=== PATIENT | male | born 1950 | race Caucasian/White ===

== ENCOUNTER 2018-04-09 11:38 | Emergency (ER) | payer MEDICARE, OTHER ==
[~2018-04-09] VITALS: Ht 175.3 cm; Wt 75.0 kg
[~2018-04-09 11:38] MED LIST: FLUTICASONE50 MCG; LIPITOR20 MG PO; LISINOPRIL10 MG PO; MELOXICAM7.5 MG PO; METOPROL TAR25 MG PO; PANTOPRAZOLE SO40 MG PO; VENLAFAXINE150 M1 PO
[2018-04-09 11:53] LABS: HEMATOCRIT 37.2 % (39.0-50.0); IMMATURE GRANULOCYTES 0.7 % (0.0-5.0); MEAN CELL VOLUME 101.1 fL CALC (80.0-100.0); MEAN CORPUSCULAR HGB 33.4 pG CALC (26.0-32.0); MEAN CORPUSCULAR HGB CONC 33.1 g/L CALC (32.0-36.0); NEUT# 12.51 thou/uL (1.82-7.42); RED BLOOD COUNT 3.68 mill/uL (4.70-6.10); RED CELL DISTRI WIDTH 15.2 % (11.5-15.5)
[2018-04-09 11:55] LABS: HEMOGLOBIN 12.3 g/dl (14.0-18.0)
[2018-04-09 12:09] LABS: PROTHROMBIN TIME 10.5 SECONDS (9.0-12.5)
[2018-04-09 12:12] LABS: ALKALINE PHOSPHATASE 117 u/l (38-126); BILIRUBIN, TOTAL 0.6 mg/dL (0.0-1.4); BUN 17 mg/dL (8-23); BUN/CREATININE RATIO 18 (12-20 (CALC)); CARBON DIOXIDE 21 mmol/l (22-30); CREATININE 0.9 mg/dL (0.7-1.3); GFR > 60 ML/MIN (>=60 (CALC)); GFR FOR AFR.AMER. > 60 ML/MIN (>=60 (CALC)); SGOT/AST 232 u/l (19-48); SODIUM 141 mmol/l (137-146); TOTAL PROTEIN 7.5 g/dL (6.3-8.2)
[2018-04-09 12:21] LABS: ANION GAP 19 (6-22 (CALC)); CHLORIDE 106 mmol/l (95-108); POTASSIUM 5.4 mmol/l (3.5-5.1)
[2018-04-09 12:40] LABS: MYOGLOBIN 4652 ng/mL (0 - 121)
[2018-04-09 12:58] VITALS: BP 112/84
== END 2018-04-09 12:58 | disposition short-term general hospital (02) ==
LOC: ED 11:38
PROVIDERS: Emergency Medicine
PROC: 0T9B70Z Drainage of Bladder with Drainage Device, Via Natural or Artificial Opening (ICD-10-PCS; principal; 2018-04-09)
DX: I21.09 ST elevation (STEMI) myocardial infarction involving other coronary artery of anterior wall (principal); I10 Essential (primary) hypertension; E78.00 Pure hypercholesterolemia, unspecified; K21.9 Gastro-esophageal reflux disease without esophagitis; R00.0 Tachycardia, unspecified
CPT/HCPCS: J1250

== ENCOUNTER 2018-10-25 14:35 | Emergency (ER) | payer MEDICARE, OTHER ==
[~2018-10-25] VITALS: Ht 175.3 cm; Wt 69.0 kg
[~2018-10-25 14:35] MED LIST changes: +BUMETANIDE2 MG PO; +COQ-10100 M1 PO; +DOCUSATE SOD100 MG PO; +FAMOTIDINE20 M3 PO; +FERRAPLUS 90 PO; +MIDODRINE5 MG PO; +SERTRALINE25 MG; +SPIRONOLACT50 M1 PO; +VITAMIN C500 M6 PO; +VITAMIN DE1000 MCG/M IM; +XARELTO15 MG PO
[2018-10-25 15:14] LABS: HEMATOCRIT 29.3 % (39.0-50.0); HEMOGLOBIN 8.7 g/dl (14.0-18.0); IMMATURE GRANULOCYTES 0.5 % (0.0-5.0); MEAN CELL VOLUME 80.9 fL CALC (80.0-100.0); MEAN CORPUSCULAR HGB CONC 29.7 g/L CALC (32.0-36.0); NEUT# 5.13 thou/uL (1.82-7.42); RED BLOOD COUNT 3.62 mill/uL (4.70-6.10); RED CELL DISTRI WIDTH 20.7 % (11.5-15.5)
[2018-10-25 15:36] LABS: CREATININE 1.5 mg/dL (0.7-1.3); POTASSIUM 3.9 mmol/l (3.5-5.1)
[2018-10-25] MEDS ORDERED: ASPIRIN81 MG PO (15:43)
[2018-10-25 17:55] VITALS: BP 90/62
== END 2018-10-25 17:55 | disposition home or self-care (01) ==
LOC: ED 14:35
PROVIDERS: Family Medicine
DX: T82.7XXA Infection and inflammatory reaction due to other cardiac and vascular devices, implants and grafts, initial encounter (principal); I10 Essential (primary) hypertension; I25.10 Atherosclerotic heart disease of native coronary artery without angina pectoris; Y83.1 Surgical operation with implant of artificial internal device as the cause of abnormal reaction of the patient, or of later complication, without mention of misadventure at the time of the procedure; Z95.0 Presence of cardiac pacemaker

== ENCOUNTER 2019-02-16 15:53 | Inpatient (IN) | payer MEDICARE, OTHER ==
[~2019-02-16] VITALS: Ht 175.3 cm; Wt 70.0 kg
[~2019-02-16 15:53] MED LIST changes: +ASPIRIN81 MG PO; -SERTRALINE25 MG; +SERTRALINE50 MG PO; +SPIRONOLACT25 MG PO; -SPIRONOLACT50 M1 PO
--- NOTE | 2019-02-16 15:55 | NUR ---
TO ROOM 8 VIA EMS FOR BEDSIDE TRIAGE
[2019-02-16 17:23] LABS: BILIRUBIN, TOTAL 0.8 mg/dL (0.0-1.4); TOTAL PROTEIN 8.4 g/dL (6.3-8.2)
[2019-02-16 17:26] LABS: CREATININE 2.8 mg/dL (0.7-1.3)
[2019-02-16 17:28] LABS: HEMATOCRIT 31.6 % (39.0-50.0); HEMOGLOBIN 10.2 g/dl (14.0-18.0); IMMATURE GRANULOCYTES 0.6 % (0.0-5.0); MEAN CELL VOLUME 92.7 fL CALC (80.0-100.0); MEAN CORPUSCULAR HGB 29.9 pG CALC (26.0-32.0); MEAN CORPUSCULAR HGB CONC 32.3 g/L CALC (32.0-36.0); NEUT# 6.82 thou/uL (1.82-7.42); RED BLOOD COUNT 3.41 mill/uL (4.70-6.10); RED CELL DISTRI WIDTH 19.4 % (11.5-15.5)
--- NOTE | 2019-02-16 18:03 | NUR ---
PT REESTING STATES HIS IN DECEMBER OF SUICIDE SO HE HAS BEEN FEELING WEAK/TIRED/DEPRESSED ON AND OFF SINCE THEN STATES HE HAS BEEN FORCING HIMSELF TO EAT AND THAT HE DRINKS 2-3 DRINKS A DAY BUT HAS BEEN CUTTING BACK BECAUSE HIS HEART AND HAVE TOLD HIM HE NEEDS TO STOP. WAS DRIVING TO DAY TO THE [employer] TO GET A DRINK AND "NUDGED THE STOP SIGN" THE OFFICER ASKED HIM TO COME TO THE HOSPITAL AND BE CHECKED OUT. PT HAS O2 AT HOME THAT HE STATES HE WEARS EVERY NIGHT AND DURING THE DAY PRN FOR SOB. STATES HE HAS FELT HE NEED THE O2 DURING THE DAY MORE THIS LAST WEEK.
--- NOTE | 2019-02-16 18:21 | NUR ---
PT OOB TO STAND AT BEDSIDE FOR URINAL USAGE, TOLERATING IVF W/O INCIDENT, DENIES PAIN OR DISCOMFORT EXCEPT SOME PAIN TO PALPATION AT LEFT CHEST WALL PACER INSERTION AREA.
[2019-02-16 18:34] LABS: URINE BILIRUBIN - DIPSTICK NEGATIVE (NEGATIVE); URINE BLOOD DIPSTICK NEGATIVE (NEGATIVE); URINE COLOR YELLOW; URINE GLUCOSE - DIPSTICK NEGATIVE (NEGATIVE); URINE KETONE NEGATIVE (NEGATIVE); URINE LEUK ESTERASE NEGATIVE (NEGATIVE); URINE NITRITE - DIPSTICK NEGATIVE (Negative); URINE PROTEIN - DIPSTICK NEGATIVE (NEG-TRACE); URINE UROBILINOGEN - DIPSTICK 0.2 E.U./dL (0.2)
--- NOTE | 2019-02-16 18:35 | NUR ---
PT USED URINAL SPECIMEN SENT. OFFERS NO OTHER COMPLAINTS, AWARE OF ABG RESULTS. CALL READ WITHIN REACH, AND URINAL AT BEDSIDE
--- NOTE | 2019-02-16 18:54 | NUR ---
SBAR SENT TO MED/SURG
--- NOTE | 2019-02-16 18:56 | NUR ---
IN ROOM INTRODUCED SELF TO PT. IVF RATE DECREASED TO 150 ML/HR PER MD.
--- NOTE | 2019-02-16 19:03 | NUR ---
MD IN ROOM TO DISCUSS CLINICAL FINDINGS WITH PT. VERBALIZED UNDERSTANDING. PT. ALSO MADE AWARE OF ADMISSION, VERBALIZED UNDERSTANDING.
--- NOTE | 2019-02-16 19:25 | NUR ---
Admission Note Report Given to: CRISTINA DANIELS Transported by: Wheelchair X Stretcher Transported with: X Nurse Transporter X Patent IV X O2 X Photographic Developer And Printer
--- NOTE | 2019-02-16 19:25 | NUR ---
PT ARRIVED TO FLOOR VIA WHEELCHAIR ACCOMPAINED BY ER STAFF. PT ALERT AND ORIENTED. DENIES ANY PAIN OR SOB. PT AMBULATED FROM CHAIR TO BED WITH STEADY GAIT. MULTIPLE AREAS OF BRUISING, AND SCABS NOTED TO BUE AND BLE. IV SITE APPEARS TO BE LEAKING AT THIS TIME. PT ORIENTED TO ROOM AND CALL LIGHT SYSTEM. ENCOURAGED PT TO CALL WITH NEEDS. CALL LIGHT WITHIN REACH. WILL CONTINUE TO MONITOR.
--- NOTE | 2019-02-16 19:27 | NUR ---
PT. TO MSF VIA STRETCHER, NO C/O AT THIS TIME.
[2019-02-16 19:45] VITALS: BP 91/57
--- NOTE | 2019-02-16 19:50 | NUR ---
FLAVIA CASPER NOTIFIED OF LACTIC 3.0. NEW ORDERS RECEIVED AT THIS TIME FOR BLOOD CULTURES AND IV ABT. DISCUSSED WITH PT, VERBALIZED UNDERSTANDING.
--- NOTE | 2019-02-16 22:00 | NUR ---
1ST NS BOLUS COMPLETE PT TOLERATED WELL. LUNGS SOUNDS CLEAR. NO EDEMA NOTED. 400ML CLEAR YELLOW URINE EMPTIED FROM URINAL. CALL LIGHT WITHIN REACH. WILL CONTINUE TO MONITOR.
[2019-02-17] VITALS (26 sets, daily range): BP systolic 75–114; BP diastolic 44–67
--- NOTE | 2019-02-17 00:33 | NUR ---
PT BP 88/57. PT PLACED IN [place] AT THIS TIME. BRIM BLOCKER IN ER NOTIFIED BIOMASS FACILITATOR PT HR IN 120S. PT DENIES ANY SOB OR CP.
--- NOTE | 2019-02-17 00:48 | NUR ---
PT BP RECHECKED BP NOW 76/52. ER PHYSICIAN NOTIFIED AND RECEIEVED RECOMMENDATION TO NOTIFY NURSES SUPERVISOR PHYSICIAN AT THIS TIME.
--- NOTE | 2019-02-17 00:57 | NUR ---
BATH HOUSE ATTENDANT PHYSICIAN NOTIFIED AT THIS TIME. ORDERS RECEIVED TO GIVE 1GM OF VANCO IV NOW AND 500ML NS BOLUS, TRANSFER PT TO ICU AND START ON LEVOPHED DRIP IN BOLUS NOT EFFECTIVE. ICU NOTIFIED. PT WILL BE TRANSFERED TO BED 2. DISCUSSED WITH PT AT THIS TIME.
--- NOTE | 2019-02-17 01:50 | NUR ---
PT TRANSFERED TO ICU BED 2. REPORT GIVEN TO MIRA.
--- NOTE | 2019-02-17 01:52 | NUR ---
PT. ARRIVES VIA STRETCHER FROM MED/SURG. HYPOTENSIVE ON ARRIVAL TO UNIT.
--- NOTE | 2019-02-17 02:30 | NUR ---
PT. STARTED ON LEVOPHED DRIP PER PROTOCOL. INITIATED AT 4 MCG AT THIS TIME. WILL CONTINUE TO CLOSELY MONITOR PT. BP. DENIES DIZZINESS OR LIGHTHEADED. CALL LIGHT WITHIN REACH. WATCHING TELEVISION. WILL CONTINUE TO MONITOR.
--- NOTE | 2019-02-17 02:50 | NUR ---
URINAL EMPTIED OF 150 CC STRAW COLORED URINE AT THIS TIME. PT. SITTING UP IN BED IN NO DISTRESS. SOMEWHAT FLAT AFFECT BUT ANSWERS QUESTIONS APPROPRIATELY. CALL LIGHT REMAINS WITHIN REACH. WILL CONTINUE TO CLOSELY MONITOR.
--- NOTE | 2019-02-17 03:43 | NUR ---
VANCO COMPLETE, NO REACTIONS NOTED. PT. REMAINS EASILY AROUSABLE TO LIGHT VERBAL STIMULI. CALL LIGHT REMAINS WITHIN REACH. DENIES COMPLAINTS OR NEEDS.
--- NOTE | 2019-02-17 04:34 | NUR ---
BP REMAINS STABLE AND IMPROVED ON THE LEVOPHED DRIP AT 4 MCG AT THIS TIME. CALL LIGHT REMAINS WITHIN REACH. SKIN REMAINS WARM AND DRY. RESPS EVEN AND UNLABORED. WILL CONTINUE TO MONITOR.
--- NOTE | 2019-02-17 04:58 | NUR ---
LAB AT BEDSIDE TO DRAW PT. PT. DENIES COMPLAINTS OF PAIN OR NEED AT THIS TIME. CALL LIGHT REMAINS WITHIN REACH. IV FLUIDS CONTINUE TO INFUSE WITHOUT SIGNS OF INFILTRATION OR EXTRAVASATION. BP REMAINS IMPROVED @ 110/56.
[2019-02-17 05:16] LABS: HEMATOCRIT 26.7 % (39.0-50.0); HEMOGLOBIN 8.3 g/dl (14.0-18.0); IMMATURE GRANULOCYTES 0.5 % (0.0-5.0); MEAN CORPUSCULAR HGB 29.5 pG CALC (26.0-32.0); MEAN CORPUSCULAR HGB CONC 31.1 g/L CALC (32.0-36.0); NEUT# 4.12 thou/uL (1.82-7.42); RED BLOOD COUNT 2.81 mill/uL (4.70-6.10); RED CELL DISTRI WIDTH 19.2 % (11.5-15.5)
--- NOTE | 2019-02-17 05:30 | NUR ---
PORTABLE CHEST X-RAY IN PROGRESS AT THIS TIME. PT. REMAINS EASILY AROUSABLE TO LIGHT VERBAL STIMULI. ALERT, ORIENTED X 3. SKIN WARM AND DRY. IV FLUIDS INFUSING ORDERED. LEVOPHED DRIP INFUSING AT 2 MCG AT THIS TIME. WILL CONTINUE TO TITRATE DOWN. CALL LIGHT REMAINS WITHIN REACH. WILL CONTINUE TO MONITOR.
[2019-02-17 05:41] LABS: CREATININE 1.9 mg/dL (0.7-1.3); MAGNESIUM 1.5 mg/dL (1.6-2.3); POTASSIUM 4.3 mmol/l (3.5-5.1)
--- NOTE | 2019-02-17 08:00 | NUR ---
PT ALERT AND ORIENTED X 3, RESPONDS APPROPRIATELY. AFFECT IS SOMEWHAT FLAT. PT UP TO BSC, SMALL BM. LUNGS CLEAR, 2 LPM. NO COMPLAINTS OF SHORTNESS OF BREATH.
--- NOTE | 2019-02-17 10:00 | NUR ---
PT SEEN BY DR ARMAS THIS MORNING, STARTED ON ANTIBIOTICS. PT CONTINUES BEFORE, NO ACUTE DISTRESS OR SHORTNESS OF BREATH.
--- NOTE | 2019-02-17 13:00 | NUR ---
PT HAS BEEN HELPED WITH BEDBATH THIS MORNING, TOLERATED WELL. PT IS APPROPRIATELY INTERACTIVE. NO SHORTNESS OF BREATH.
--- NOTE | 2019-02-17 15:56 | NUR ---
PT HAS BEEN OOB TO USE BSC TODAY. PT ALSO WASHED UP EARLIER. LEVOPHED CONTINUES AT 4 MCG/KG/MIN, BP 114/72.
--- NOTE | 2019-02-17 18:45 | NUR ---
REPORT FROM JAREK CAMPBELL. ASSUMED PT. CARE.
--- NOTE | 2019-02-17 19:45 | NUR ---
PT. FOUND AWAKE, ALERT, ORIENTED X 3. SKIN WARM AND DRY. AFEBRILE. RESPS EVEN AND UNLABORED. BOWEL SOUNDS ACTIVE. LEVOPHED DRIP INFUSING AT 4 MCG AT THIS TIME. IV FLUIDS INFUSING AT 100 CC/HR. NO EDEMA NOTED. MILD CRACLES TO RT. BASE. PT. DENIES COMPLAINTS OF SOB. DISTIL PULSES INTACT. CALL LIGHT WITHIN REACH. WILL CONTINUE TO CLOSELY MONITOR.
--- NOTE | 2019-02-17 21:43 | NUR ---
PT. PROVIDED WITH LEMON HEBREW ICE AT THIS TIME. CALL LIGHT REMAINS WITHIN REACH. IV FLUIDS INFUSING AT 100 CC/HR ORDERED. LEVOPHED ORDERED AT 4 MCG AT THIS TIME. REMAINS IN NO DISTRES.
--- NOTE | 2019-02-17 23:30 | NUR ---
PT. RESTING IN BED IN NO DISTRESS. SKIN REMAINS WARM AND DRY. LEVOPHED DRIP CONTINUES AT 4 MCG AT THIS TIME IV FLUIDS CONTINUE TO INFUSE. RESPS REMAIN EVEN AND UNLBORED. CALL LIGHT REMAINS WITHIN REACH. WILL CONTINUE TO MONITOR.
[2019-02-18] VITALS (15 sets, daily range): BP systolic 97–123; BP diastolic 56–76
--- NOTE | 2019-02-18 01:21 | NUR ---
PT. REMAINS STABLE ON THE MONITOR. SINUS IN THE 80'S. VOICES NO COMPLAINTS OR NEEDS AT THIS TIME. CALL LIGHT REMAINS WITHIN REACH.
--- NOTE | 2019-02-18 03:39 | NUR ---
PT. CONTINUES TO REST WELL AT THIS TIME. RESPS REMAIN EVEN AND UNLABORED. NO DISTRESS. BP/HR REMAIN STABLE. CONTINUES AT 4 MCG ON THE LEVOPHED AT THIS TIME. CALL LIGHT WITHIN REACH. WILL CONINTUE TO ASSESS.
--- NOTE | 2019-02-18 05:20 | NUR ---
LAB AT BEDSIDE AT THIS TIME. PT. REMAINS EASILY AROUSABLE TO LIGHT VERBAL STIMULI. RESPS REMAIN EVEN AND UNLABORED. REMAINS AFEBRILE. LEVOPHED CONTINUES TO INFUSE AT 4 MCG AT THIS TIME.
[2019-02-18 05:53] LABS: HEMATOCRIT 26.4 % (39.0-50.0); HEMOGLOBIN 8.1 g/dl (14.0-18.0); MEAN CELL VOLUME 96.7 fL CALC (80.0-100.0); MEAN CORPUSCULAR HGB 29.7 pG CALC (26.0-32.0); MEAN CORPUSCULAR HGB CONC 30.7 g/L CALC (32.0-36.0); RED BLOOD COUNT 2.73 mill/uL (4.70-6.10)
[2019-02-18 06:17] LABS: ANION GAP 14 (6-22 (CALC)); BUN 30 mg/dL (8-23); BUN/CREATININE RATIO 28 (12-20 (CALC)); CARBON DIOXIDE 17 mmol/l (22-30); CHLORIDE 111 mmol/l (95-108); CREATININE 1.1 mg/dL (0.7-1.3); GFR > 60 ML/MIN (>=60 (CALC)); GFR FOR AFR.AMER. > 60 ML/MIN (>=60 (CALC)); POTASSIUM 4.3 mmol/l (3.5-5.1); SODIUM 137 mmol/l (137-146)
--- NOTE | 2019-02-18 06:45 | NUR ---
RECIEVED REPORT FROM JAREK MEYERS. ASSUMED PT CARE.
--- NOTE | 2019-02-18 08:00 | NUR ---
PT A&O X4, ABLE TO MAKE NEEDS KNOWN. PT REMAINS SR/ST ON TELEMETRY. PT DENIES CP, SOB OR DISTRESS AT THIS TIME. LEVOPHED AND NS INFUSING TO LAC ORDERED, NO S/S OF INFILTRATION OR INFECTION AT THIS TIME. RESPIRATIONS EVEN/UNLABORED, LS CLEAR/ CRACKLES IN BASES. SOB WITH EXERTION NOTED. ABDOMEN SOFT, NON-TENDER, BSX4, LBM 10-19-19. URINAL AND BSC IN PLACE . CALL LIGHT IN REACH. WILL MONITOR.
--- NOTE | 2019-02-18 09:15 | NUR ---
DR. ARMAS & HUGH CM AT BEDSIDE FOR ASSESSMENT AND TO DISCUSS PLAN OF CARE, NEW ORDERS TO STOP LEVOPHED GTT NOTED.
--- NOTE | 2019-02-18 10:00 | NUR ---
[id number] PT STATED CONCERN FOR HIS CATS AT HOME WITHOUT CARE. PT REQUESTED THAT I CALL JAREK GAGE . REQUEST GRANTED. JAREK GAGE STATED SHE WOULD GO BY PT HOME AND CARE FOR CATS.
--- NOTE | 2019-02-18 11:30 | NUR ---
DIETARY ON UNIT, PT REPOSITIONED SELF. LUNCH TRAY SET UP .
--- NOTE | 2019-02-18 12:30 | NUR ---
PT ASSISTED TO BSC, THEN BACK TO BED. PT TOLERATED TRANSFERR WELL. CALL LIGHT IN REACH. WILL MONITOR.
--- NOTE | 2019-02-18 14:00 | NUR ---
PT RESTING IN BED, OFFERS NO COMPLAINTS AT THIS TIME. CALL LIGHT IN REACH. WILL MONITOR.
--- NOTE | 2019-02-18 15:44 | NUR ---
PT SITTING UP IN BED, ASSITED WITH RAZOR TO SHAVE. PT DENIES CP, SOB OR DISTRESS AT THIS TIME. CALL LIGHT IN REACH. WILL MONITOR.
[2019-02-19] VITALS (8 sets, daily range): BP systolic 90–134; BP diastolic 57–84
[2019-02-19 07:30] LABS: ANION GAP 14 (6-22 (CALC)); BUN 18 mg/dL (8-23); BUN/CREATININE RATIO 20 (12-20 (CALC)); CARBON DIOXIDE 16 mmol/l (22-30); CHLORIDE 115 mmol/l (95-108); CREATININE 0.9 mg/dL (0.7-1.3); GFR > 60 ML/MIN (>=60 (CALC)); GFR FOR AFR.AMER. > 60 ML/MIN (>=60 (CALC)); MAGNESIUM 1.3 mg/dL (1.6-2.3); POTASSIUM 4.3 mmol/l (3.5-5.1); SODIUM 141 mmol/l (137-146)
--- NOTE | 2019-02-19 07:39 | NUR ---
SPUTUM COLECTED. PATIENT UP TO C FOR BM. STOOL SAMPLE COLLECTED.PATIENT ABLE TO TRASFER ON HIS OWN.PATIENT SITING UP ON THE SIDE OF BED EATING BREAKFAST.
--- NOTE | 2019-02-19 08:35 | NUR ---
DR ARMAS @BEDSIDE, ASSESSING PT, DISCUSSING POC/TEST RESULTS.
[2019-02-19 10:02] LABS: C. DIFFICILE TOXIN A&B NEGATIVE (NEGATIVE)
[2019-02-19 10:19] LABS: HEMATOCRIT 24.9 % (39.0-50.0); HEMOGLOBIN 7.5 g/dl (14.0-18.0); MEAN CORPUSCULAR HGB 30.1 pG CALC (26.0-32.0); MEAN CORPUSCULAR HGB CONC 30.1 g/L CALC (32.0-36.0); RED BLOOD COUNT 2.49 mill/uL (4.70-6.10); RED CELL DISTRI WIDTH 18.8 % (11.5-15.5)
--- NOTE | 2019-02-19 11:32 | NUR ---
PT REQUEST WASH BASIN AFTER HAVING AN "ACCIDENT" IN BED. PT ASSISTED BY STUDENT WITH BATH & LINEN CHANGE. GIVEN NEW BREIFS PER PTS REQUESTS.
--- NOTE | 2019-02-19 11:50 | NUR ---
INCREASED SOB WITH EXERTION. DOES NOT LIKE LUNCH. STATES HE EATS SMALL MEALS ALL DAY. REFUSED CHANGE OF DIET TO 6 SMALL MEALS. REQUEST SOUP & SIDE SALAD. CAFE WILL NOTIFIED.
--- NOTE | 2019-02-19 14:30 | NUR ---
[facility], BEHAVIOR HEALTH, @BEDSIDE. PT WILL JOIN GROUP ON SUNDAY.
--- NOTE | 2019-02-19 17:36 | NUR ---
TRANSFERED CALL FROM SON TO PTS ROOM ON UNITS PORT PHONE. PT INSISTING ON HIM GOING HOME TONIGHT, DOES NOT WANT DINNER.
--- NOTE | 2019-02-19 19:30 | NUR ---
PATIENT SITTING ON SIDE OF BED, BECOMES SOB WITH EXERTION. ON 2L/MIN NC. ALERT AND ORIENTED X4. HEAD TO TOE NURSING ASSESSMENT PERFORMED, SEE CHARTING INTERVENTIONS. RFA 22 G IV INTACT AND SALINE LOCKED. AFEBRILE. SR ON TELEMETRY. UP AD ANTONETTE WITH NO DIFFICULTY, USES BEDSIDE COMMODE AND URINAL. MOIST AUDIT MACHINE OPERATOR COUGH PRESENT. POC FOR TONIGHT DISCUSSED, NO COMPLAINTS. REQUESTS TY AMPARO WITH ICE. CALL LIGHT WITHIN REACH. WILL CONTINUE TO MONITOR.
--- NOTE | 2019-02-19 21:00 | NUR ---
BEDTIME MEDICATIONS PROVIDED, PATIENT TOLERATED WITH NO DIFFICULTY. NO NEEDS AT THIS TIME CALL LIGHT WITHIN REACH.
--- NOTE | 2019-02-19 22:00 | NUR ---
PATIENT LAYS ON HIS R-SIDE. RESTS WITH YEES CLOSED, OCCASSIONAL MANAGER FOREIGN COUGH PRESENT. CALL LIGHT WITHIN REACH. WILL CONTINUE TO MONITOR.
[2019-02-20] VITALS (10 sets, daily range): BP systolic 107–144; BP diastolic 64–86
--- NOTE | 2019-02-20 00:10 | NUR ---
PATIENT RESTS WITH EYES CLOSED, SR ON TELEMETRY. ON 2L/MIN NC, SATS 96%. AFEBRILE. NO NEEDS AT THIS TIME. CALL LIGHT WITHIN REACH.
--- NOTE | 2019-02-20 02:00 | NUR ---
PATIENT CONTINUES TO RESTS WITH EYES CLOSED, OCCASSIONAL COUGH NOTED. NO NEEDS AT THIS TIME. CALL LIGHT WITHIN REACH.
[2019-02-20 05:04] LABS: HEMATOCRIT 24.4 % (39.0-50.0); HEMOGLOBIN 7.4 g/dl (14.0-18.0); MEAN CELL VOLUME 98.4 fL CALC (80.0-100.0); MEAN CORPUSCULAR HGB 29.8 pG CALC (26.0-32.0); MEAN CORPUSCULAR HGB CONC 30.3 g/L CALC (32.0-36.0); RED BLOOD COUNT 2.48 mill/uL (4.70-6.10); RED CELL DISTRI WIDTH 18.8 % (11.5-15.5)
[2019-02-20 05:26] LABS: ANION GAP 15 (6-22 (CALC)); BUN 21 mg/dL (8-23); BUN/CREATININE RATIO 19 (12-20 (CALC)); CARBON DIOXIDE 16 mmol/l (22-30); CHLORIDE 111 mmol/l (95-108); CREATININE 1.1 mg/dL (0.7-1.3); GFR > 60 ML/MIN (>=60 (CALC)); GFR FOR AFR.AMER. > 60 ML/MIN (>=60 (CALC)); POTASSIUM 4.3 mmol/l (3.5-5.1); SODIUM 138 mmol/l (137-146)
[2019-02-20 05:30] LABS: MAGNESIUM 2.2 mg/dL (1.6-2.3)
--- NOTE | 2019-02-20 05:36 | NUR ---
PATIENT RESTS WITH EYES CLOSED. NO ACUTE DISTRESS NOTED, NO NEEDS AT THIS TIME. CALL LIGHT WITHIN REACH.
[2019-02-20] MEDS ORDERED: LIPITOR20 M1 PO (08:32)
[2019-02-20] MEDS ORDERED: BUMETANIDE1 MG PO (08:33)
[2019-02-20] MEDS ORDERED: REMERON7.5 MG PO (08:33)
[2019-02-20] MEDS ORDERED: FERROUS SULF325 M2 PO (08:33)
[2019-02-20] MEDS ORDERED: ENTRESTO 24-261 TAB PO (08:34)
[2019-02-20] MEDS ORDERED: LOPRESSOR25 M1 PO (08:34)
[2019-02-20] MEDS ORDERED: MIDODRINE HCL5 MG PO (08:35)
[2019-02-20] MEDS ORDERED: ZITHROMAX500 MG PO (08:35)
--- NOTE | 2019-02-20 09:00 | NUR ---
DR ARMAS @BEDSIDE
--- NOTE | 2019-02-20 10:41 | NUR ---
PT C/O CHRONIC UPPER BACK PAIN; DENIES LOWER OR NEW BACK PAIN. MEDICATED PER MAY. PT REQUEST IV ABX PRIOR TO DC.
--- NOTE | 2019-02-20 12:43 | NUR ---
MARK ANTHONY, DEPT FLORIST SUPPLIES SALESPERSON, AGREED TO PAY FOR TAXI FROM [facility] TO [facility] IN [facility] WHERE PTS CAR. IV ABX COMPLETED. PT UNHOOKED TO DRESS SELF FOR DC.
--- NOTE | 2019-02-20 12:51 | NUR ---
MISAEL REESE, NOTIFIED OF PTS D/C & HOME HEALTH REFERRAL- ADVISED THIS RN TO CALL HOME HEALTH TO INFORM THEM OF REFERRAL. HOME HEALTH NOTIFIED.
--- NOTE | 2019-02-20 12:58 | NUR ---
PT OUT THE DOOR WITH AUX BY WC IN STABLE CONDITION. PT REFUSED O2/NC, STATING HE HAS HIS TANK IN HIS CAR.
== END 2019-02-20 12:58 | DRG 682 ==
LOC: ED 15:53 → ED-I 18:18 → ED 18:21 → MS2 18:22 → ICU 18:22
PROVIDERS: Emergency Medicine; ADMIT Internal Medicine; ATTEND Internal Medicine
PROC: 3E02340 Introduction of Influenza Vaccine into Muscle, Percutaneous Approach (ICD-10-PCS; principal; 2019-02-18)
PROC: 3E0234Z Introduction of Serum, Toxoid and Vaccine into Muscle, Percutaneous Approach (ICD-10-PCS; 2019-02-18)
PROC: 30233N1 Transfusion of Nonautologous Red Blood Cells into Peripheral Vein, Percutaneous Approach (ICD-10-PCS; 2019-02-20)
DX: N17.9 Acute kidney failure, unspecified (principal); J18.9 Pneumonia, unspecified organism; A04.5 Campylobacter enteritis; E86.0 Dehydration; I11.0 Hypertensive heart disease with heart failure; I50.9 Heart failure, unspecified; I25.10 Atherosclerotic heart disease of native coronary artery without angina pectoris; D50.0 Iron deficiency anemia secondary to blood loss (chronic); I48.0 Paroxysmal atrial fibrillation; K21.9 Gastro-esophageal reflux disease without esophagitis; I95.9 Hypotension, unspecified; T50.2X5A Adverse effect of carbonic-anhydrase inhibitors, benzothiadiazides and other diuretics, initial encounter; I25.2 Old myocardial infarction; Z23 Encounter for immunization; Z87.891 Personal history of nicotine dependence; Z95.1 Presence of aortocoronary bypass graft; Z95.810 Presence of automatic (implantable) cardiac defibrillator; Z79.01 Long term (current) use of anticoagulants; Z63.4 Disappearance and death of family member
CPT/HCPCS: G0378; J1756; J3475; P9016

== ENCOUNTER 2019-03-11 12:57 | Inpatient (IN) | payer MEDICARE, OTHER ==
[~2019-03-11] VITALS: Ht 175.3 cm; Wt 70.1 kg
[2019-03-11] VITALS (10 sets, daily range): BP systolic 57–87; BP diastolic 39–62
[~2019-03-11 12:57] MED LIST changes: +BUMETANIDE1 MG PO; +ENTRESTO 24-261 TAB PO; +FERROUS SULF325 M2 PO; +LIPITOR20 M1 PO; +LOPRESSOR25 M1 PO; +MIDODRINE HCL5 MG PO; +REMERON7.5 MG PO; +ZITHROMAX500 MG PO
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
[2019-03-11 13:30] LABS: HEMATOCRIT 29.2 % (39.0-50.0); HEMOGLOBIN 9.5 g/dl (14.0-18.0); IMMATURE GRANULOCYTES 0.6 % (0.0-5.0); MEAN CELL VOLUME 96.4 fL CALC (80.0-100.0); MEAN CORPUSCULAR HGB 31.4 pG CALC (26.0-32.0); MEAN CORPUSCULAR HGB CONC 32.5 g/L CALC (32.0-36.0); NEUT# 5.17 thou/uL (1.82-7.42); RED BLOOD COUNT 3.03 mill/uL (4.70-6.10); RED CELL DISTRI WIDTH 17.7 % (11.5-15.5)
[2019-03-11 13:47] LABS: BILIRUBIN, TOTAL 0.7 mg/dL (0.0-1.4); MAGNESIUM 1.8 mg/dL (1.6-2.3); TOTAL PROTEIN 7.3 g/dL (6.3-8.2)
[2019-03-11 13:53] LABS: CREATININE 3.6 mg/dL (0.7-1.3); POTASSIUM 6.4 mmol/l (3.5-5.1)
[2019-03-11 13:54] LABS: ACT PARTIAL THROMBO TIME 36.2 SECONDS (20.0-32.5); ALBUMIN 3.9 g/dL (3.2-5.0); D-DIMER 0.93 mg/L (0.19-0.60); PROTHROMBIN TIME 13.1 SECONDS (9.0-12.5)
--- NOTE | 2019-03-11 13:56 | NUR ---
250 ML OF CLEAR YELLOW URINE EMPTIED FROM URINAL. SAMPLE COLLECTED.
--- NOTE | 2019-03-11 14:00 | NUR ---
PATIENT ASSISTED TO SIDE OF BED TO USE URINAL. DENIES ANY DIZZINESS OR WEAKNESS WITH CHANGE IN POSITION. PATIENT ALERT AND ORIENTED X4. REPORTS WEAKNESS FOR MONTHS. IF FLUIDS INFUSING WELL. WILL CONTINUE TO MONITOR. CALL LIGHT WITHIN REACH. INFORMED TO CALL FOR ASSISTANCE. VERBAL UNDERSTANDING.
[2019-03-11 14:03] LABS: URINE BILIRUBIN - DIPSTICK NEGATIVE (NEGATIVE); URINE BLOOD DIPSTICK NEGATIVE (NEGATIVE); URINE COLOR YELLOW; URINE GLUCOSE - DIPSTICK NEGATIVE (NEGATIVE); URINE KETONE NEGATIVE (NEGATIVE); URINE LEUK ESTERASE NEGATIVE (NEGATIVE); URINE NITRITE - DIPSTICK NEGATIVE (Negative); URINE PROTEIN - DIPSTICK NEGATIVE (NEG-TRACE); URINE SPECIFIC GRAVITY 1.015; URINE UROBILINOGEN - DIPSTICK 0.2 E.U./dL (0.2)
[2019-03-11 14:04] LABS: INTERNATIONAL NORMALIZED RATIO 1.3 RATIO (0.7-1.3)
[2019-03-11 14:07] LABS: BARBITURATES NEGATIVE (NEGATIVE); COCAINE NEGATIVE (NEGATIVE); METHADONE NEGATIVE (NEGATIVE); OXCYCODONE NEGATIVE (NEGATIVE); TETRAHYDROCANNABIONOL NEGATIVE (NEGATIVE); TRICYLIC ANTIDEPRESSANTS NEGATIVE (NEGATIVE)
--- NOTE | 2019-03-11 14:29 | NUR ---
400 ML OF URINE EMPTIED.
--- NOTE | 2019-03-11 14:39 | NUR ---
AT BEDSIDE TO DISCUSS RESULTS AND PLANS TO ADMIT. VERBAL UNDERSTANDING FROM PATIENT.
--- NOTE | 2019-03-11 14:49 | NUR ---
REPORT CALLED TO JAREK RODRIGUEZ. WAITING ON FLOOR ORDERS TO TRANSPORT PATIENT.
--- NOTE | 2019-03-11 14:55 | NUR ---
300 ML EMPTIED FROM URINAL.
--- NOTE | 2019-03-11 15:00 | NUR ---
LANI ALEJANDRO CALLED FOR ORDERS. STATES WILL PLACE ORDERS.
--- NOTE | 2019-03-11 15:40 | NUR ---
PT ADMITTED TO ICU BED 7 FROM ED, REPORT RECIEVED, PT TRANSFERRED SELF FROM STRETCHER TO BED. ADMITTED FOR HYPOTENSION, HYPERKALEMIA, DEHYDRATION, AKF. PT A&OX4, ABLE TO MAKE NEEDS KNOWN. PT IS FOLLOWED BY [facility]/HH. DENIES CP, SOB OR DISTRESS AT THIS TIME. PACEMAKER AT L CHEST (05/21). RESPIRATIONS EVEN/UNLABORED, SA02@98%RA, LS CLEAR THROUGHOUT. ABDOMEN SOFT, NON-TENDER. BSX4 ACTIVE. LBM 03-11-19 LOOSE, BROWN, MODERATE. TAVARES'S PLACED BLE. AFEBRILE. PT ORIENTED TO UNIT, ROOM, AND CALL LIGHT SYSTEM. WILL MONITOR.
--- NOTE | 2019-03-11 15:45 | NUR ---
400 ML OF URINE EMPTIED.
--- NOTE | 2019-03-11 15:50 | NUR ---
PATIENT TRANSPORTED TO ICU WITH SENIOR SUPPORT ENGINEER IN PLACE AND IV FLUIDS ON HOLD FOR TRANSPORT. JAREK RODRIGUEZ AT BEDSIDE. CARE RELINQUISHED. BELONGINGS SENT TO ICU WITH PATIENT. CARE RELINQUISHED.
--- NOTE | 2019-03-11 15:50 | NUR ---
PATIENT TRANSPORTED TO ICU WITH EXTRUDER OPERATOR IN PLACE AND IV FLUIDS ON HOLD FOR TRANSPORT. JAREK RODRIGUEZ AT BEDSIDE. CARE RELINQUISHED. BELONGINGS SENT TO ICU WITH PATIENT. CARE RELINQUISHED.
--- NOTE | 2019-03-11 16:00 | NUR ---
PT REMAINS HYPOTENSIVE, ASYMPTOMATIC. PENNIE ALEJANDRO NOTIFIED. NEW ORDERS RECIEVED. WILL MONITOR.
--- NOTE | 2019-03-11 16:15 | NUR ---
PT ASSISTED TO BSC, MODERATE LOOSE BM. PERICARE DONE, PT BACK IN BED. CALL LIGHT IN REACH. WILL MONITOR. B/P IMPROVING.
[2019-03-11] MEDS ORDERED: ASPIRIN81 MG PO (16:31)
[2019-03-11] MEDS ORDERED: REMERON7.5 MG PO (16:32)
[2019-03-11] MEDS ORDERED: LIPITOR20 M1 PO (16:32)
[2019-03-11] MEDS ORDERED: VITAMI16 PO (16:33)
[2019-03-11] MEDS ORDERED: VITAMIN B-1100 M1 PO (16:33)
[2019-03-11] MEDS ORDERED: MULTI VIT PO (16:33)
[2019-03-11] MEDS ORDERED: CO Q 10100 MG PO (16:33)
[2019-03-11] MEDS ORDERED: IRON325 M1 (16:34)
[2019-03-11] MEDS ORDERED: OCUVIT1 PO (16:35)
[2019-03-11] MEDS ORDERED: METOPROL TAR25 MG PO (16:35)
[2019-03-11] MEDS ORDERED: ZOLOFT25 MG PO (16:36)
[2019-03-11] MEDS ORDERED: XARELTO15 MG PO (16:36)
[2019-03-11] MEDS ORDERED: ENTRESTO 24-261 TAB (16:36)
[2019-03-11] MEDS ORDERED: BUMETANIDE1 MG PO (16:38)
[2019-03-11] MEDS ORDERED: PROTONIX40 M2 PO (16:39)
[2019-03-11] MEDS ORDERED: SPIRONOLACTONE25 MG PO (16:39)
[2019-03-11] MEDS ORDERED: MIDODRINE HCL5 MG PO (16:40)
--- NOTE | 2019-03-11 17:15 | NUR ---
FLAVIA, EMPLOYMENT SERVICE SPECIALIST NOTIFIED PT B/P STABLE WITH MAP>60. NEW ORDERS RECIEVED TO START LEVOPHED WITH MAP <60. PT AWARE, REMAINS ASYMPTOMATIC. WILL MONITOR.
--- NOTE | 2019-03-11 18:16 | NUR ---
PT ASSISTED TO BSC, THEN BACK TO BED.
--- NOTE | 2019-03-11 19:00 | NUR ---
REPORT RECIEVED FROM JAREK WOODS. PT RESTING IN BED SEMI FOWLERS; ALERT AND ORIENTED. DENIES PAIN. RESPIRATIONS EVEN AND UNLABORED ON ROOM AIR. BLOOD PRESSURE 87/62 WITH MAP OF 72; ASYMPTOMATIC HYPOTENSION; HEART RATE 88. LUNGS ARE CLEAR; SKIN WARM AND MOIST; PACEMAKER SITE SWOLLEN; PULSES STRONG NAD REGULAR; NSR ON TELEMETRY. MULTIPLE DISCOLORATIONS TO EXTEMITIES AND SKIN TEARS TO BUE; ALL BANDAGES REMOVED AND PHOTOS TAKEN; LFA SKIN TEAR REINFORCED WITH TELFA AND COBAN. IV FLUIDS INFUISNG WITHOUT DIFFICULTY; EMS IV SITE IS PATENT AND SLIGHTLY BLOODY; DRESSING IS INTACT. PLAN OF CARE REVIEWED. PT ENCOURAGED TO VERBALIZE CONCERNS. STATES UNDERSTANDING. SAFETY MEASURES IN PLACE. CALL LIGHT WITHIN REACH.
[2019-03-11 19:14] LABS: CREATININE 2.6 mg/dL (0.7-1.3); POTASSIUM 5.1 mmol/l (3.5-5.1)
--- NOTE | 2019-03-11 21:13 | NUR ---
PT UP TO BSC INDEPENDENTLY FOR LARGE LOOSE BOWEL MOVEMENT WITH URINE; PT REMINDED THAT WE NEED A STOOL SPECIMEN WITHOUT URINE MIXED; HAT PLACED IN BSC WITH DIRECTIONS FOR STOOL SAMPLE; STATES UNDERSTANDING.
[2019-03-12] VITALS (22 sets, daily range): BP systolic 69–109; BP diastolic 37–70
--- NOTE | 2019-03-12 02:08 | NUR ---
PT ASLEEP WITH NO SIGNS OF DISTRESS. RESPIRATIONS EVEN AND UNLABORED ON ROOM AIR. REPOSITIONS SELF IN BED; USES CALL LIGHT PRN FOR ASSISTANCE TO BSC. DENIES PAIN. BLOOD PRESSURE 79/59 WITH MAP OF 66. CALL LIGHT WITHIN REACH.
--- NOTE | 2019-03-12 03:00 | NUR ---
STOOL COLLECTED AND SENT TO LAB.
--- NOTE | 2019-03-12 04:00 | NUR ---
PT UP TO BSC; ASSISTED BACK GIVEN AND LINENS CHANGED.
--- NOTE | 2019-03-12 04:58 | NUR ---
LAB AT BEDSIDE.
[2019-03-12 05:09] LABS: HEMATOCRIT 32.2 % (39.0-50.0); HEMOGLOBIN 10.2 g/dl (14.0-18.0); IMMATURE GRANULOCYTES 0.4 % (0.0-5.0); MEAN CELL VOLUME 97.9 fL CALC (80.0-100.0); MEAN CORPUSCULAR HGB CONC 31.7 g/L CALC (32.0-36.0); NEUT# 3.37 thou/uL (1.82-7.42); RED BLOOD COUNT 3.29 mill/uL (4.70-6.10); RED CELL DISTRI WIDTH 17.8 % (11.5-15.5)
[2019-03-12 05:35] LABS: CREATININE 1.6 mg/dL (0.7-1.3); POTASSIUM 5.4 mmol/l (3.5-5.1)
--- NOTE | 2019-03-12 07:20 | NUR ---
PT RESTING IN BED WITH EYES CLOSED. AROUSES TO VERBAL STIMULI. PT IS ALERT AND ORIENTED X3. SHIFT ASSESSMENT COMPLETED AT THIS TIME. IV PATENT X1. CALL LIGHT IN REACH. WILL CONTINUE TO MONIOTR.
--- NOTE | 2019-03-12 07:45 | NUR ---
PT SET UP FOR AM MEAL
--- NOTE | 2019-03-12 08:30 | NUR ---
DR ARMAS AT BEDSIDE AT THIS TIME.
--- NOTE | 2019-03-12 08:47 | NUR ---
DR ARMAS NOTIFIED DR ROA OF CONSULT
--- NOTE | 2019-03-12 08:58 | NUR ---
PER PT REQUEST NOTIFIED LIP PROGRAM THAT PATIENT WAS ADMITTIED TO ICU.
--- NOTE | 2019-03-12 10:30 | NUR ---
PETEY GARIBAY AT BEDSIDE AT THIS TIME
--- NOTE | 2019-03-12 10:40 | NUR ---
PT PUSHED CALL LIGHT. THIS NURSE INTO ROOM. BLOOD ON FLOOR. IV TUBING WAS IN HALF. CLAMPED IV SITE TO PREVENT FURTHER BLEEDING. IV PUMP TURNED OFF. REMOVED #18 LAC WITH CATH TIP INTACT. NEW IV STARTED TO RAC #20 X2 ATTEMPTS. PT TOLERATED WELL. IVF RESTARTED. CALL LIGHT IN REACH. WILL CONTINUE TO MONITOR.
--- NOTE | 2019-03-12 11:28 | NUR ---
PT SET UP FOR NOON MEAL AT THIS TIME
--- NOTE | 2019-03-12 12:01 | NUR ---
PT SITTING UP IN BED WATCHING TV. RESP ARE EVEN AND UNLABORED. NO DISTRESS NOTED. CALL LIGHT IN REACH.WILL CONTINUE TO MONTIOR,.
--- NOTE | 2019-03-12 13:52 | NUR ---
PT RESTING IN BED WTIH EYES CLOSED. RESP ARE EVEN AND UNLABORED. NO DISTRESS NOTED. CALL LIGHT IN REACH. WILL CONTINUE TO MONITOR.
--- NOTE | 2019-03-12 16:14 | NUR ---
PT RESTING IN BED WATCHING TV. RESP ARE EVEN AND UNLABORED. NO DISTRESS NOTED. CALL LIGHT IN REACH. WILL CONTINEU TO MONITOR
--- NOTE | 2019-03-12 17:52 | NUR ---
PT SET UP FOR PM MEAL
--- NOTE | 2019-03-12 19:10 | NUR ---
awake. denies distress. media monitor shows sinus rhythm. #20 rac ns infusing @ 150cchr. po fluids taken well. had liquid brown stool per bsc. fall precautions cont.
--- NOTE | 2019-03-12 21:10 | NUR ---
sonata 5mg po given per request for sleep.
--- NOTE | 2019-03-12 22:00 | NUR ---
watching tv. no c/o.
[2019-03-13] VITALS (16 sets, daily range): BP systolic 71–142; BP diastolic 53–90
--- NOTE | 2019-03-13 00:01 | NUR ---
eyes closed. no distress. traffic monitor specialist shows paced rhythm hr 72.
--- NOTE | 2019-03-13 02:00 | NUR ---
resting quietly. resps even & unlabored. no distress.
--- NOTE | 2019-03-13 04:45 | NUR ---
lab here. blood drawn.
[2019-03-13 05:15] LABS: HEMATOCRIT 33.6 % (39.0-50.0); HEMOGLOBIN 10.2 g/dl (14.0-18.0); MEAN CELL VOLUME 100.6 fL CALC (80.0-100.0); MEAN CORPUSCULAR HGB 30.5 pG CALC (26.0-32.0); MEAN CORPUSCULAR HGB CONC 30.4 g/L CALC (32.0-36.0); RED BLOOD COUNT 3.34 mill/uL (4.70-6.10); RED CELL DISTRI WIDTH 17.8 % (11.5-15.5)
[2019-03-13 05:41] LABS: ANION GAP 13 (6-22 (CALC)); BUN 42 mg/dL (8-23); BUN/CREATININE RATIO 49 (12-20 (CALC)); CARBON DIOXIDE 16 mmol/l (22-30); CHLORIDE 119 mmol/l (95-108); CREATININE 0.9 mg/dL (0.7-1.3); GFR > 60 ML/MIN (>=60 (CALC)); GFR FOR AFR.AMER. > 60 ML/MIN (>=60 (CALC)); MAGNESIUM 1.6 mg/dL (1.6-2.3); SODIUM 142 mmol/l (137-146)
[2019-03-13 05:58] LABS: POTASSIUM 6.2 mmol/l (3.5-5.1)
--- NOTE | 2019-03-13 07:20 | NUR ---
PT RESTING IN BED AWAKE. PT IS ALERT AND ORIENTED X3. SHIFT ASSESSMENT COMPLETED AT THIS TIME. IV PATENT X1. CALL LIGHT IN REACH. WILL CONTINUE TO MONITOR.
--- NOTE | 2019-03-13 07:30 | NUR ---
LAB AT BEDSIDE FOR BLOOD DRAW
--- NOTE | 2019-03-13 07:47 | NUR ---
PT SET UP FOR AM MEAL
--- NOTE | 2019-03-13 10:00 | NUR ---
PT RESTING IN BED AWAKE AND WATCHING TV. RESP ARE EVEN AND UNLABORED. NO DSITRESS NOTED CALL LIGHT IN REACH. WILL CONTINUE TOMONITOR.
--- NOTE | 2019-03-13 10:20 | NUR ---
DR BYRNE AT BEDSIDE TO SEE PATIENT
--- NOTE | 2019-03-13 11:46 | NUR ---
PT SET UP FOR NOON MEAL
--- NOTE | 2019-03-13 14:00 | NUR ---
PT RESTING IN BED WITH EYES CLOSED. RESP ARE EVEN AND UNLABORED. NO DISTRESS NTOED. CALL LIGHT IN REACH. WILL CONTINUE TO MONTIOR.
--- NOTE | 2019-03-13 16:00 | NUR ---
PT RESTING IN BED AWAKE. RESP ARE EVEN AND UNLABORED. NO DISTRESS NOTED. CALL LIGHT IN REACH. WILL CONTINUE TO MONITOR
--- NOTE | 2019-03-13 17:20 | NUR ---
pt set up for meal
--- NOTE | 2019-03-13 18:05 | NUR ---
PT SITITNG UP IN BED WATCHING TV. RESP ARE EVEN AND UNLABORED. NO DISTRESS NOTED. CALL LIGHT IN REACH. WILL OCNTINUE TO MONITOR.
--- NOTE | 2019-03-13 19:00 | NUR ---
awake. no acute distress. delivery crew member shows paced rhythm. #20 rac ns infusing @ 150cchr. po fluids taken well. no stools as of yet. voids per urinal. fall precautions cont.
--- NOTE | 2019-03-13 20:51 | NUR ---
SONATA 5MG GIVEN PER REQUEST FOR SLEEP.
--- NOTE | 2019-03-14 00:01 | NUR ---
eyes closed. no distress. engineer assistant shoes paced rhythm hr 110.
[2019-03-14 01:45] VITALS: BP 121/89
--- NOTE | 2019-03-14 02:00 | NUR ---
resting quietly. resps even & unlabored. no apparent distress.
[2019-03-14 03:45] VITALS: BP 150/93
--- NOTE | 2019-03-14 04:00 | NUR ---
voided per urinal. hr 150's then returned to 110.
--- NOTE | 2019-03-14 04:41 | NUR ---
lab here. blood drawn
[2019-03-14 04:54] LABS: HEMATOCRIT 33.5 % (39.0-50.0); HEMOGLOBIN 10.3 g/dl (14.0-18.0); IMMATURE GRANULOCYTES 0.3 % (0.0-5.0); MEAN CELL VOLUME 101.5 fL CALC (80.0-100.0); MEAN CORPUSCULAR HGB 31.2 pG CALC (26.0-32.0); MEAN CORPUSCULAR HGB CONC 30.7 g/L CALC (32.0-36.0); NEUT# 4.45 thou/uL (1.82-7.42); RED BLOOD COUNT 3.3 mill/uL (4.70-6.10); RED CELL DISTRI WIDTH 17.8 % (11.5-15.5)
[2019-03-14 05:13] LABS: ALBUMIN 3.3 g/dL (3.2-5.0); ALKALINE PHOSPHATASE 67 u/l (38-126); BILIRUBIN, TOTAL 0.7 mg/dL (0.0-1.4); BUN 21 mg/dL (8-23); BUN/CREATININE RATIO 25 (12-20 (CALC)); CARBON DIOXIDE 14 mmol/l (22-30); CHLORIDE 121 mmol/l (95-108); CREATININE 0.8 mg/dL (0.7-1.3); GFR > 60 ML/MIN (>=60 (CALC)); GFR FOR AFR.AMER. > 60 ML/MIN (>=60 (CALC)); SGOT/AST 27 u/l (19-48); SODIUM 142 mmol/l (137-146); TOTAL PROTEIN 6.6 g/dL (6.3-8.2)
[2019-03-14 05:15] LABS: ANION GAP 12 (6-22 (CALC)); POTASSIUM 5.3 mmol/l (3.5-5.1)
[2019-03-14 05:45] VITALS: BP 110/68
--- NOTE | 2019-03-14 05:58 | NUR ---
incont scant amount brown liq stool. pt cleansed.
--- NOTE | 2019-03-14 06:45 | NUR ---
RECIEVED REPORT FROM FRANCES YOUNG. ASSUMED PT CARE.
[2019-03-14 07:45] VITALS: BP 122/79
--- NOTE | 2019-03-14 07:45 | NUR ---
PT A&OX4, ABLE TO MAKE NEEDS KNOWN. PACED ON TELEMETRY, HR 116. PT DENIES CP, SOB OR DISTRESS. RESPIRATIONS EVEN/UNLABORED, SAO2@96%RA.LS CLEAR THROUGHOUT. ABDOMEN SOFT, NON-TENDER. BSX4 ACTIVE. 20G TO RAC INFUSING NS@150ML/HR. NO S/S OF INFILTRATION OR INFECTION NOTED AT SITE. CALL LIGHT IN REACH. BSC IN PLACE. WILL MONITOR.
--- NOTE | 2019-03-14 08:00 | NUR ---
DIETARY ON UNIT, BREAKFAST TRAY SET UP. PT REMAINS ON CLEAR LIQUID DIET.
--- NOTE | 2019-03-14 09:00 | NUR ---
DR. ARMAS AT BEDSIDE FOR ASSESSMENT AND TO DISCUSS PLAN OF CARE. NEW ORDERS RECIEVED. CALL LIGHT IN REACH. WILL MONITOR.
[2019-03-14 10:00] VITALS: BP 121/80
--- NOTE | 2019-03-14 10:20 | NUR ---
PT ASSISTED TO BSC. PT TOLERATING TRANSFERS WELL.
--- NOTE | 2019-03-14 11:25 | NUR ---
IV site discontinued, cath intact. No edema , no redness, voices no discomfort.
--- NOTE | 2019-03-14 11:45 | NUR ---
CALL [facility] TO TRANSPORT PT HOME, HOSPITAL TO PAY. PER JAREK HOPSON MGR.
[2019-03-14 12:00] VITALS: BP 96/63
--- NOTE | 2019-03-14 12:00 | NUR ---
Discharge instructions given. Patient verbalizes understanding of same. Discharged in stable condition via [facility] to Home with *Other. All belongings sent with pt.
== END 2019-03-14 12:00 | DRG 683 ==
LOC: ED 12:57 → ED-I 13:25 → ED 13:25 → ED-I 14:15 → ED 14:28 → ICU 14:29
PROVIDERS: Nurse Practitioner Family; ADMIT Internal Medicine; ATTEND Internal Medicine
DX: N17.9 Acute kidney failure, unspecified (principal); I13.0 Hypertensive heart and chronic kidney disease with heart failure and stage 1 through stage 4 chronic kidney disease, or unspecified chronic kidney disease; I50.9 Heart failure, unspecified; N18.3 Chronic kidney disease, stage 3 (moderate); I25.10 Atherosclerotic heart disease of native coronary artery without angina pectoris; I25.5 Ischemic cardiomyopathy; E87.5 Hyperkalemia; T50.2X5A Adverse effect of carbonic-anhydrase inhibitors, benzothiadiazides and other diuretics, initial encounter; R19.7 Diarrhea, unspecified; I95.2 Hypotension due to drugs; T46.5X5A Adverse effect of other antihypertensive drugs, initial encounter; I48.91 Unspecified atrial fibrillation; E86.0 Dehydration; I70.201 Unspecified atherosclerosis of native arteries of extremities, right leg; K70.30 Alcoholic cirrhosis of liver without ascites; R19.5 Other fecal abnormalities; D50.0 Iron deficiency anemia secondary to blood loss (chronic); E83.42 Hypomagnesemia; F32.9 Major depressive disorder, single episode, unspecified; Z79.01 Long term (current) use of anticoagulants; Z95.810 Presence of automatic (implantable) cardiac defibrillator; Z86.718 Personal history of other venous thrombosis and embolism; Z86.711 Personal history of pulmonary embolism; Z87.891 Personal history of nicotine dependence; Z95.1 Presence of aortocoronary bypass graft
CPT/HCPCS: G0328; J3475

== ENCOUNTER 2019-07-23 10:31 | Inpatient (IN) | payer MEDICARE, OTHER ==
[2019-07-23] VITALS (8 sets, daily range): BP systolic 91–113; BP diastolic 57–79
[~2019-07-23] VITALS: Ht 175.3 cm; Wt 77.6 kg
[~2019-07-23 10:31] MED LIST changes: +CO Q 10100 MG PO; +ENTRESTO 24-261 TAB; +IRON325 M1; +MULTI VIT PO; +OCUVIT1 PO; +PROTONIX40 M2 PO; +SPIRONOLACTONE25 MG PO; +VITAMI16 PO; +VITAMIN B-1100 M1 PO; +ZOLOFT25 MG PO
--- NOTE | 2019-07-23 10:35 | NUR ---
PT TO ROOM VIA WC FOR BEDSIDE TRIAGE
--- NOTE | 2019-07-23 11:04 | NUR ---
PT MEDICATED PER MAY FOR RIGHT HIP PAIN RATING 10 OUT OF 10
--- NOTE | 2019-07-23 11:16 | NUR ---
PT PRESENTS WITH PAIN IN RIGHT HIP AFTER FALLING IN SHOWER YESTERDAY MORNING. A PAIN OF 9/10 WAS RATED AND PT IS STIFF BECAUSE OF IT. PULSES FAINT ON RIGHT SIDE AND RIGHT LEG IS COOLER THAN LEFT. MILD SWELLING NOTICED IN RIGHT ANKLE. PT DENIED FEELING DIZZY OR HAVING BLURRED VISION BEFORE FALLING, HE STATES JUST LEG GIVING WAY AND FALLING. PT DENIES HITTING HEAD AND NO TRUAMA NOTED. NO LOC MENTIONED WELL. CAP REFILL IN THAT RIGHT FOOT SLIGHTLY DELAYED AT 4 SEC. WILL CONTINUE MONITORING
--- NOTE | 2019-07-23 11:28 | NUR ---
PT SWABBED FOR COVID 19 VIRUS
--- NOTE | 2019-07-23 11:33 | NUR ---
PT WAS SEEN TO HAVE A LOW BP OF 81 SYSTOLIC. IV INITIATED AND FLUIDS GIVIN. PT HAS TEMP OF 99.8 F. LABS WERE DRAWN. PT ASYMPTOMATIC WITH HR OF 85-90 BPM. WILL CONTINUE TO MONITOR. A COUGH IS NOTED PT REQUESTIONED ON WHY HE FELL AND HE STATES THAT HE DOES NOT REALLY REMEMBER, WEAKNESS WAS ASKED, AND HE AGREED THAT WEAKNESS HAS BEEN A SYMPTOM IN THE LAST FEW DAYS ALONG WITH LACK OF ENERGY
[2019-07-23 11:49] LABS: HEMATOCRIT 34.7 % (39.0-50.0); HEMOGLOBIN 11.8 g/dl (14.0-18.0); IMMATURE GRANULOCYTES 0.6 % (0.0-5.0); MEAN CELL VOLUME 93.5 fL CALC (80.0-100.0); MEAN CORPUSCULAR HGB 31.8 pG CALC (26.0-32.0); NEUT# 10.17 thou/uL (1.82-7.42); RED BLOOD COUNT 3.71 mill/uL (4.70-6.10)
[2019-07-23 12:04] LABS: ALBUMIN 3.9 g/dL (3.2-5.0); ALKALINE PHOSPHATASE 108 u/l (38-126); ANION GAP 18 (6-22 (CALC)); BILIRUBIN, TOTAL 1.4 mg/dL (0.0-1.4); BUN 26 mg/dL (8-23); BUN/CREATININE RATIO 19 (12-20 (CALC)); CARBON DIOXIDE 25 mmol/l (22-30); CHLORIDE 92 mmol/l (95-108); CREATININE 1.4 mg/dL (0.7-1.3); GFR 51 ML/MIN (>=60 (CALC)); GFR FOR AFR.AMER. > 60 ML/MIN (>=60 (CALC)); POTASSIUM 3.6 mmol/l (3.5-5.1); SGOT/AST 42 u/l (19-48); SODIUM 131 mmol/l (137-146); TOTAL PROTEIN 6.9 g/dL (6.3-8.2)
--- NOTE | 2019-07-23 12:25 | NUR ---
PT RESTING ON STRETCHER WITH CALL LIGHT WITHIN REACH. BP STARTING TO ELEVATE AND IS CURRENTLY 101 SYSTOLIC AND HR WNL
--- NOTE | 2019-07-23 13:30 | NUR ---
URINE COLLECTED AND PT DENIES ANY NEEDS AT THIS TIME. PT STATES THAT HE WANTED TO REST. LIGHTS WERE DIMME
--- NOTE | 2019-07-23 13:50 | NUR ---
REASSESSED TEMP 98.6 F
[2019-07-23 13:56] LABS: URINE BILIRUBIN - DIPSTICK NEGATIVE (NEGATIVE); URINE BLOOD DIPSTICK NEGATIVE (NEGATIVE); URINE COLOR YELLOW; URINE GLUCOSE - DIPSTICK NEGATIVE (NEGATIVE); URINE KETONE TRACE mg/dL (NEGATIVE); URINE LEUK ESTERASE NEGATIVE (NEGATIVE); URINE NITRITE - DIPSTICK NEGATIVE (Negative); URINE PROTEIN - DIPSTICK NEGATIVE (NEG-TRACE); URINE UROBILINOGEN - DIPSTICK 0.2 E.U./dL (0.2)
--- NOTE | 2019-07-23 14:30 | NUR ---
BP STARTING TO LOWER AGAIN. NOTIFIED OF BP SYSTOLIC OF 90. HR WNL.
--- NOTE | 2019-07-23 15:20 | NUR ---
PT RESTING WITH EYES CLOSED AND IV ANTIBIOTICS INFUSING IN PATENT IV. LIGHTS CONTINUE TO BE DIMMED
--- NOTE | 2019-07-23 16:20 | NUR ---
PT RESTING WITH EYES CLOSED
--- NOTE | 2019-07-23 17:25 | NUR ---
GAVE REPORT TO TIMO
--- NOTE | 2019-07-23 17:38 | NUR ---
PT TRANSPORTED TO ICU IN NO DISTRESS AND IN STABLE COND VIA STRETCHER. CARE ASSUMED TO TIMO. Admission Note Report Given to: Transported by: Wheelchair X Stretcher Transported with: X Nurse Transporter X Patent IV O2 X Spinner Box Location: X ICU MS2
--- NOTE | 2019-07-23 18:00 | NUR ---
PHONED DR FALCON FOR MEDICATION FOR HIP PAIN. NEW ORDERS RECEIVED.
--- NOTE | 2019-07-23 18:25 | NUR ---
PT ARRIVED TO UNIT AT 1747 VIA STRETCHER WITH ER STAFF; ASSISTED ONTO BED WITH 3 PERSON ASSIST; NON WEIGHT BEARING DUE TO FRACTURES IN RIGHT HIP AND PELVIC. ALERT AND ORIENTED X 3. C/O 6/10 RIGHT HIP PAIN AT REST THAT WORSENS WITH MOVEMENT. RESPIRATIONS EVEN AND UNLABORED ON ROOM AIR. PT PLACED ON AIRBORNE/CONTACT PRECAUTIONS DUE TO POSITIVE RAPID COVID RESULTS. ORIENTED TO ROOM AND CALL LIGHT SYSTEM. IV FLUIDS INITIATED. 16F MESSER PLACED DUE TO DIURETIC USE AND ACUTE IMMOBILITY. PLAN OF CARE DISCUSSED. PT ENCOURAGED TO VERBALIZE CONCERNS. STATES UNDERSTANDING. SAFETY MEASURES IN PLACE. CALL LIGHT WITHIN REACH.
--- NOTE | 2019-07-23 19:10 | NUR ---
PATIENT IS AWAKE, ALERT AND ORIENTED X4. ON RA, NO SOB NOTED, NO COMPLAINTS OF SOB. COMPLAINS OF PAIN ON RIGHT THIGH/RIGHT HIP, RATES A 6. EDUACTED ON PAIN MEDICATION HE WILL RECEIVE AND FREQUENCY. NURSING ASSESSMENT PERFORMED. PATIENT NOT ABLE TO MAKE DRASTIC MOVEMENTS FROM SIDE TO SIDE DUE TO PAIN ON RIGHT HIP AND FRACTURES. RAC AND LAC IV'S INTACT, NS INFUSIONG PROPERLY. BP IN THE 90'S SYSTOLIC, TEMP 99.2. PACED SR ON TELEMETRY, HR RANGES IN THE 80'S. PATIENT ASKS TO USE BEDPAN FOR BM, MOMNTS LATER HE EXPLAINS HE THINKS IT WAS JUST GAS HE HAS. MESSER CATHETER INTACT, YELLOW/CLEAR URINE IN BAG. POC FOR TONIGHT DISCUSSED, PATIENT UNDERSTANDS AND AGREES. DOES NOT WANT TO REPOSITION AT THIS MOMENT BECAUSE OF PAIN. CALL LIGHT WITHIN REACH.
--- NOTE | 2019-07-23 21:00 | NUR ---
PATIENT REQUESTS MEDIACTION FOR SLEEP, I CALLED AND SPOKE TO DR FALCON AND DR FALCON EXPLAINS PT HAS LOW BP AND BP TENDS TO DROP IN THE PAST, NO NEW ORDERS.
--- NOTE | 2019-07-23 21:10 | NUR ---
BLOOD DRAWN FOR LABS ORDERED BY DR CHANDA KIRKPATRICK. PATIENT ASKS TO USE BEDPAN. PATIENT HAS AN ACCIDENT ON BED PAD, HE HAS A LOOSE DARK GREEN STOOL, PLACED HIM ON THE BEDPAN AND DID NOT HAVE ANYMORE BM. PATIENT'S JOSE F AND BUTTOCKS WASHED UP AND DRIED, NEW PAD APPLIED ON BED. PATIENT ABLE TO HELP TO TURN. PLACED A PILLOW BETWEEN HIS LEGS PER REQUEST. ALSO WAS ABLE TO TOLERATE HIS BEDTIME LOPRESSOR WITH SIPS OF WATER. CALL LIGHT WITHIN REACH. WILL CONTINUE TO MONITOR.
[2019-07-24] VITALS (19 sets, daily range): BP systolic 84–112; BP diastolic 52–76
--- NOTE | 2019-07-24 01:19 | NUR ---
PAIN MEDIACTION PROVIDED TO PATIENT FOR R-HIP PAIN. PATIENT COMPLAINS OF NOT BEING ABLE TO SLEEP. PATIENT ABLE TO PULL HIMSELF UP WITH VERBAL CUEING, NON-WEIGHT BEARING TO RLE, ONLY USED HIS LLE. RLE PLACED ON TOP OF PILLOW. NO OTHER NEEDS. AFEBRILE. VS WNL. CALL LIGHT WITHIN REACH.
--- NOTE | 2019-07-24 05:15 | NUR ---
PATIENT IS AWAKE, HORACIO MAGANA ORIENTED X4. COMPLAINS OF PAIN ON HIS RIGHT UPPER BACK ABOVE HIS SHOULDER BLADE, HE ASKED ME TO RUB IT, I PLACED A PILLOW BEHIND HIS RIGHT UPPER BACK WHICH HE REPERTS IT HELPED "SOME." BLOOD DRAWN FOR LABS THIS AM. MESSER EMPTIED. TEMP TAKEN. WATER POURED INTO HIS CUP. NO OTHER NEEDS. CALL LIGHT WITHIN REACH.
[2019-07-24 05:42] LABS: HEMATOCRIT 32.8 % (39.0-50.0); IMMATURE GRANULOCYTES 0.8 % (0.0-5.0); MEAN CELL VOLUME 96.2 fL CALC (80.0-100.0); MEAN CORPUSCULAR HGB 32.3 pG CALC (26.0-32.0); MEAN CORPUSCULAR HGB CONC 33.5 g/dL CAL (32.0-36.0); NEUT# 8.17 thou/uL (1.82-7.42); RED BLOOD COUNT 3.41 mill/uL (4.70-6.10)
[2019-07-24 05:56] LABS: ANION GAP 10 (6-22 (CALC)); BUN 28 mg/dL (8-23); BUN/CREATININE RATIO 24 (12-20 (CALC)); CARBON DIOXIDE 28 mmol/l (22-30); CHLORIDE 100 mmol/l (95-108); CREATININE 1.2 mg/dL (0.7-1.3); GFR 60 ML/MIN (>=60 (CALC)); GFR FOR AFR.AMER. > 60 ML/MIN (>=60 (CALC)); POTASSIUM 3.4 mmol/l (3.5-5.1); SODIUM 134 mmol/l (137-146)
--- NOTE | 2019-07-24 07:00 | NUR ---
REPORT RECEIVED FROM JAREK RAGLAND. PT RESTING IN BED SEMI FOWLERS; ALERT AND ORIENTED. C/O 810 RIGHT HIP PAIN. RESPIRATIONS EVEN AND UNLABORED ON ROOM AIR; SPO2 DOWN TO 87%; OXYGEN 2L APPLIED VIA NC; SPO2 INCREASED TO 94%. IV FLUIDS INFUSING WITHOUT DIFFICULTY; IV SITES APPEAR HEALTHY AND FLUSH. MESSER DRAINING CLEAR YELLOW URINE IN ADEQUATE AMOUNTS. VSS. PT C/O SOME SORENESS TO BLE; FEET ELEVATED WITH PILLOWS. PLAN OF CARE REVIEWED. PT ENCOURAGED TO VERBALIZE CONCERNS. STATES UNDERSTANDING. SAFETY MEASURES IN PLACE. CALL LIGHT WITHIN REACH.
--- NOTE | 2019-07-24 08:22 | NUR ---
TRAMADOL GIVEN WITH AM MEDS FOR HIP PAIN. PT SITTING UP BREAKFAST.
--- NOTE | 2019-07-24 09:30 | NUR ---
DR. ARMAS AT BEDSIDE.
--- NOTE | 2019-07-24 11:29 | NUR ---
LORTAB ADMINISTERED AT THIS TIME FOR 8/10 RIGHT HIP PAIN; FACIAL GRIMACING OBSERVED WITH MOVEMENT. SET UP FOR LUNCH. AFEBRILE. PT ABLE TO REPOSITION HIMSELF IN BED. VSS. PACED ON TELEMETRY. SAFETY MEASURES IN PLACE. PT REMAINS ON AIRBORNE/CONTACT PRECAUTIONS PENDING COVID SWAB. CALL LIGHT WITHIN REACH.
--- NOTE | 2019-07-24 12:23 | NUR ---
PT SITTING UP TO BRUSH TEETH AND SHAVE FACE.
--- NOTE | 2019-07-24 14:43 | NUR ---
PT AT BEDSIDE FOR EVAL. TRAMADOL GIVEN AT THIS TIME.
--- NOTE | 2019-07-24 16:12 | NUR ---
PT note Patient is seen for evaluation. He would do well to go to an ECF for continued rehab given the circumstances and repeated injury to his right side. He has limited endurance and limited balance and strength and is a high fall risk given the fact that he does not have the strength to complete a DGI test. He is a high fall risk and will need time for recovery with monitorerd rehab due to his multiple co- morbidities including MS, HTN, RCT, multiple back surgery, and acute right acetabular fracture. I strongly recommend some sort of ECF for this type of rehab
--- NOTE | 2019-07-24 17:26 | NUR ---
DR. DAVIS AT VIRTUAL BEDSIDE FOR ID CONSULT. PT VERBALIZES SYMPTOMS OF COUGH AND SOB WHICH HE HAS EXPERIENCED SINCE HIS [place] IN APRIL OF 2018; REPORTS NO RECENT CHANGE IN THESE SYMPTOMS.
--- NOTE | 2019-07-24 17:46 | NUR ---
PT REPORTS POOR APETITE; DECLINES DINNER AND REQUESTS FRUIT AND SOUP INSTEAD. 450ML OF TRENT URINE EMPTIED FROM MESSER CATHETER. IV SITE TO RAC D/C'D DUE TO LEAKING. IV SITE TO LAC APPEARS HEALTHY AND FLUSHES; IV FLUIDS INFUSING WITHOUT DIFFICULTY. PT GUARDED. NO OTHER REQUESTS OR CONCERNS AT THIS TIME.
--- NOTE | 2019-07-24 20:06 | NUR ---
PHYSICIAN SUPPORT COORDINATOR MARINA CALLED UP HERE TO NOTIFY RESULTS FROM [facility] FOR PATIENT'S SWAB HAVE CAME BACK AND NONE DETECTED, SHE HAS FAXED RESULTS HERE TO ICU.
--- NOTE | 2019-07-24 21:13 | NUR ---
PATIENT TOLERATES MEDICATIONS. NO ACUTE DISTRESS SHOWN. CALL LIGHT WITHIN REACH.
[2019-07-25] VITALS (19 sets, daily range): BP systolic 95–126; BP diastolic 61–84
--- NOTE | 2019-07-25 02:12 | NUR ---
PT AWAKE, PAIN MEDICATION OFFEFRED AND GIVEN, NOW SITS UP IN BED, WATCHES TV, AND WOULD LIKE TO WASH UP AFTER PAIN MEDICATION HAS BEEN EFFECTIVE.
--- NOTE | 2019-07-25 03:44 | NUR ---
PATIENT SAT ON THE SIDE OF THE BED AND WASHED HIMSELF. NEW GOWN PLACED. NEW SHEETS PLACED. NONWEIGHT BEARING ON RLE. AFEBRILE. SOB WITH EXERTION. EXPRESSES HOW "WONDERFUL" HE FEELS AFTER WASHING UP. CALL LIGHT WITHIN REACH.
[2019-07-25 04:33] LABS: HEMATOCRIT 32.8 % (39.0-50.0); HEMOGLOBIN 10.7 g/dl (14.0-18.0); IMMATURE GRANULOCYTES 0.5 % (0.0-5.0); MEAN CELL VOLUME 98.5 fL CALC (80.0-100.0); MEAN CORPUSCULAR HGB 32.1 pG CALC (26.0-32.0); MEAN CORPUSCULAR HGB CONC 32.6 g/dL CAL (32.0-36.0); NEUT# 8.02 thou/uL (1.82-7.42); RED BLOOD COUNT 3.33 mill/uL (4.70-6.10); RED CELL DISTRI WIDTH 16.8 % (11.5-15.5)
[2019-07-25 05:02] LABS: ALBUMIN 3.2 g/dL (3.2-5.0); ALKALINE PHOSPHATASE 112 u/l (38-126); ANION GAP 15 (6-22 (CALC)); BILIRUBIN, TOTAL 1.6 mg/dL (0.0-1.4); BUN 25 mg/dL (8-23); BUN/CREATININE RATIO 25 (12-20 (CALC)); CARBON DIOXIDE 23 mmol/l (22-30); CHLORIDE 103 mmol/l (95-108); GFR > 60 ML/MIN (>=60 (CALC)); GFR FOR AFR.AMER. > 60 ML/MIN (>=60 (CALC)); POTASSIUM 3.7 mmol/l (3.5-5.1); SGOT/AST 34 u/l (19-48); SODIUM 137 mmol/l (137-146); TOTAL PROTEIN 6.4 g/dL (6.3-8.2)
--- NOTE | 2019-07-25 05:50 | NUR ---
PATIENT AWAKENS EASILY WHEN SPOKEN TO, NO ACUTE DISTRESS SHOWN. CALL LIGHT WITHIN REACH.
--- NOTE | 2019-07-25 07:15 | NUR ---
REPORT RECEIEVED FROM NIGHT RN. PT RESTING IN BED WITH EYES CLOSED. NO DISTRESS NOTED. WILL CONTINUE TO MONITOR.
--- NOTE | 2019-07-25 08:00 | NUR ---
PT ALERT AND ORIENTED TO PLACE, TIME, SELF AND SITUATION. PT COMPLAINING OF PAIN. PAINS MEDS GIVEN. PT SITTING UP IN BED TO EAT BREAKFAST. 2L NC. NO DISTRESS NOTED. DENIES SOB AT THIS TIME. AYDE. AIR/CONTACT PRECAUTIONS MAINTAINED. EDUCATED PATIENT ON COVID STATUS AND AIR/CONTACT PRECAUTIONS. WILL CONTINUE TO MONITOR.
--- NOTE | 2019-07-25 08:42 | NUR ---
DR. ARMAS AT BEDSIDE TO ASSESS PT.
--- NOTE | 2019-07-25 08:55 | NUR ---
PT RESWABBED FOR COVID-19. TEST SENT TO LAB.
[2019-07-25 09:50] LABS: C-REACTIVE PROTEIN 19.6 mg/dL (0-0.9)
--- NOTE | 2019-07-25 10:23 | NUR ---
PT RESTING IN BED WITH EYES CLOSED. NO DISTRESS NOTED. WILL CONTINUE TO MONITOR.
--- NOTE | 2019-07-25 12:18 | NUR ---
PT RESTING IN BED. PT EATING LUNCH. NO DISTRESS NOTED. DENIES PAIN AT THIS TIME. NO SOB NOTED. WILL CONTINUE TO MONITOR.
--- NOTE | 2019-07-25 12:23 | NUR ---
DR. ARMAS NOTIFIED OF PATIENT CRP, LDH, FERRITIN, ESR, AND D-DIMER. PER DR. ARMAS RECONSULT ID DOCTOR, DR. DAVIS
--- NOTE | 2019-07-25 12:27 | NUR ---
RECONSULT PER DR. ARMAS PLACED WITH DR. DAVIS.
--- NOTE | 2019-07-25 13:08 | NUR ---
DR. DAVIS TELEHEALTH CONSULT COMPLETED.
--- NOTE | 2019-07-25 13:31 | NUR ---
DR. ARMAS NOTIFIED ABOUT DR. DAVIS RECOMMENDATION. NO NEW ORDERS RECEIVED
--- NOTE | 2019-07-25 14:02 | NUR ---
PT RESTING IN BED WITH EYES CLOSED. PT WORKED WITH PT TODAY AT BEDSIDE. NO DISTRESS NOTED. WILL CONTINUE TO MONITOR.
--- NOTE | 2019-07-25 16:30 | NUR ---
PT RESTING IN BED WITH EYES CLOSED. NO DISTRESS NOTED. WILL CONTINUE TO MONITOR.
--- NOTE | 2019-07-25 18:03 | NUR ---
PT UP IN BED TO EAT DINNER. NO DISTRESS NOTED. DENIES PAIN AND SOB AT THIS TIME. AFEBRILE. MESSER. REPORT TO BE GIVEN TO NIGHT NURSE
--- NOTE | 2019-07-25 19:30 | NUR ---
REPORT GIVEN BY FAISAL TILLEY. PATIENT ALERT AND ORIENTED. LAYING IN BED WATCHING TV. RESP EVEN AND LABORED, 2L O2 VIA NC.COUGH PRESENT WITH CLEAR SPUTUM. PACED ON TELE. MESSER DRAINING, TRENT URINE. PLAN OF CARE DISCUSSED. PATIENT HELPED TURN TO RIGHT SIDE.PATIENT INFORMED TO CALL WITH ANY QUESTIONS OR CONCERNS. FALL PRECAUTIONS IN PLACE.
--- NOTE | 2019-07-25 20:24 | NUR ---
HS MED GIVEN. PATIENT TOLERATED WELL.
--- NOTE | 2019-07-25 20:38 | NUR ---
PAIN MED GIVEN PER PATIENT REQUEST
--- NOTE | 2019-07-25 22:00 | NUR ---
PATIENT RESTING IN BED. RESP EVEN AND LABORED WHEN MOVING. FALL PRECAUTIONS IN PLACE.
[2019-07-26] VITALS (23 sets, daily range): BP systolic 108–150; BP diastolic 69–98
--- NOTE | 2019-07-26 | NUR ---
TASKING RN IN ROOM WITH PATIENT TAKING TEMP AND VITALS. PATIENTS NEED MET AND NO C/O AT THIS TIME.
--- NOTE | 2019-07-26 02:25 | NUR ---
PATIENT RESTING WITH EYES CLOSED. RESP EVN AND UNLABORED. NO S/S OF DISTRESS NOTED.
--- NOTE | 2019-07-26 04:00 | NUR ---
PATIENT HAS SMALL AMOUNT OF BLODY SPUTUM, PREVIOUSLY WAS CLEAR SPUTUM. RESP EVEN AND UNALBORED.
--- NOTE | 2019-07-26 05:15 | NUR ---
MORNING LABS DRAWN. PATIENT AWAKE AND WATCHING TV IN BED. RESP EVEN AND LABORED. NO C/O AT THIS TIME. AM ANTIBIOTIC GIVEN
--- NOTE | 2019-07-26 05:49 | NUR ---
PATIENT STATES THAT HE HAD A NOSE BLEED AND THAT IS WHY HE HAS BLOODY SPUTUM.
[2019-07-26 06:30] LABS: HEMATOCRIT 33.5 % (39.0-50.0); HEMOGLOBIN 10.7 g/dl (14.0-18.0); IMMATURE GRANULOCYTES 0.5 % (0.0-5.0); MEAN CELL VOLUME 98.8 fL CALC (80.0-100.0); MEAN CORPUSCULAR HGB 31.6 pG CALC (26.0-32.0); MEAN CORPUSCULAR HGB CONC 31.9 g/dL CAL (32.0-36.0); NEUT# 5.75 thou/uL (1.82-7.42); RED BLOOD COUNT 3.39 mill/uL (4.70-6.10); RED CELL DISTRI WIDTH 16.9 % (11.5-15.5)
--- NOTE | 2019-07-26 06:45 | NUR ---
REPORT RECEIVED FROM Rosaura MEDINA RN. CARE ASSUMED.
[2019-07-26 06:50] LABS: ALBUMIN 3.3 g/dL (3.2-5.0); ALKALINE PHOSPHATASE 152 u/l (38-126); ANION GAP 13 (6-22 (CALC)); BILIRUBIN, TOTAL 1.3 mg/dL (0.0-1.4); BUN 23 mg/dL (8-23); BUN/CREATININE RATIO 25 (12-20 (CALC)); CARBON DIOXIDE 24 mmol/l (22-30); CHLORIDE 104 mmol/l (95-108); GFR > 60 ML/MIN (>=60 (CALC)); GFR FOR AFR.AMER. > 60 ML/MIN (>=60 (CALC)); POTASSIUM 3.5 mmol/l (3.5-5.1); SGOT/AST 38 u/l (19-48); SODIUM 138 mmol/l (137-146); TOTAL PROTEIN 6.4 g/dL (6.3-8.2)
--- NOTE | 2019-07-26 07:00 | NUR ---
PT RESTING IN BED ASLEEP. PT AROUSES TO VERBAL STIMULI. PT IS ALERT AND ORIENTED X3.SHIFT ASSESSMENT COMPLETED AT THIS TIME. IV PATENT X1. CALL LIGHT IN REACH. WILL CONTINUE TO MONITOR.
--- NOTE | 2019-07-26 08:00 | NUR ---
PT SET UP FOR AM MEAL. PT STATES CONCERNS ABOUT HOME ANIMALS. IN CONTACT WITH MERARI [facility] NURSE. PT GAVE VERBAL CONSENT TO GIVE HELATH INFO TO MERARI. ASKED MERARI TO GO FEED ANIMALS. MERARI AGREED. MERARI REACHED OUT TO SON RUCHI. SO RUCHI CALLED UNIT. PT GAVE VERBAL CONSENT TO GIVE HEALTH INFO TO SON WELL THEN CONNECTED TO CORDLESS PHONE FOR PATIENT TO SPEAK WITH SON.
--- NOTE | 2019-07-26 09:15 | NUR ---
DR LYON ON UNIT AND MADE ROUNDS ON PATIENT.
--- NOTE | 2019-07-26 10:05 | NUR ---
PT RESTING IN BED AWAKE AT THIS TIME. RESP ARE EVEN AND UNLABORED. VSS ON MONITOR. CALL LIGHT IN REACH. WILL CONTINUE TO MONITOR.
--- NOTE | 2019-07-26 12:00 | NUR ---
PT RESTING IN BED AWAKE. PT SET UP FOR NOON MEAL. VSS ON MONITOR. CALL LIGHT IN REACH. WILL CONTINUE TO MONITOR.
--- NOTE | 2019-07-26 14:00 | NUR ---
PT RESTING IN BED RESP LABORED AT TIMES. WILL CONTINUE TO CLOSELY MONITOR.
--- NOTE | 2019-07-26 14:40 | NUR ---
DR LYON NOTIFIED OF SOB ON MINIMAL EXERTION. PORTABLE CXR ORDERED.
--- NOTE | 2019-07-26 15:16 | NUR ---
RADIOLOGY AT BEDSIDE AT THIS TIME
--- NOTE | 2019-07-26 16:34 | NUR ---
PT RESTING IN BED WITH EYES CLOSED AT THIS TIME. RESP ARE EVEN AND UNALBROED. VSS ON MONITOR. CALL LIGHT IN REACH. WILL CONTINUE TO MONITOR.
--- NOTE | 2019-07-26 18:00 | NUR ---
PT SET UP FOR PM MEAL AT THIS TIME. MEDICATED FOR PAIN MAR. GIVEN MOM PER MAR FOR BM. PROVIDED IS PROVIDED RETURN DEMONSTRATION INSTRUCTED PT TO USE. CALL LIGHT IN REACH. WILL CONTINUE TO MONITOR.
--- NOTE | 2019-07-26 19:45 | NUR ---
RESTING IN BED ON ROUNDS. RESP NON-LABORED AT REST. DYPNEIC WITH EXERTION AND CONVERSATION. MOIST COUGH, EXPECTORATES SMALL AMOUNT OF BLOOD TINGED SPUTUM. BREATH SOUNDS DIMINISHED THROUGHOUT. IV IN LAC WITH NS INFUSING AT 10 ML/HR, SITE BENIGN. MESSER DRAINING CLEAR YELLOW URINE. AFEBRILE. DISCUSSED PLAN OF CARE. DENIES NEEDS AT THIS TIME. BUSINESS LINE MANAGER SHOWS PACED RHYTHM. CALL READ IN REACH.
--- NOTE | 2019-07-26 22:00 | NUR ---
VSS. PACED RHYTHM ON MONITOR.
--- NOTE | 2019-07-26 22:25 | NUR ---
MEDICATED FOR C/O RT HIP PAIN.
--- NOTE | 2019-07-26 22:45 | NUR ---
PATIENT STATES PAIN PILL HAS HELPED. READY FOR SLEEP. NO NEEDS IDENTIFIED.
[2019-07-27] VITALS (82 sets, daily range): BP systolic 71–142; BP diastolic 48–98
--- NOTE | 2019-07-27 00:05 | NUR ---
PATIENT ASLEEP ON ROUNDS. RESP NON-LABORED AT REST. VSS. PACED RHYTHM ON MONITOR. IV IN LAC WITH NS AT KVO.
--- NOTE | 2019-07-27 02:10 | NUR ---
PATIENT ASSISTED UP TO BSC, NWB ON RIGHT LEG. HAD LARGE DARK BROWN LIQUID STOOL. PATIENT HAD BLOODY NOSE-SUBSIDED WITH PRESSURE TO BRODGE OF NOSE AND ICE TO BASE OF NECK.
--- NOTE | 2019-07-27 03:00 | NUR ---
PATIENT RESTING WITH EYES CLOSED. RESP NON-LABORED. VSS. O2 SAT 100%
--- NOTE | 2019-07-27 04:10 | NUR ---
PATIENT RANG CALL LIGHT FOR ASSISTANCE. APTIENT HAD EMESIS OF JYOTSNA AMOUNT OF BLOOD AND BLOOD CLOTS. FACE WASHED AND NEW GOWN PLACED ON PATIENT.
--- NOTE | 2019-07-27 04:30 | NUR ---
HAD LARGE BURGANDY COLORED STOOL WITH CLOTS AND CONTINUES TO EXPECTORATE SMALL AMOUNTS OF BLOOD ORALLY. BP 85/61.
--- NOTE | 2019-07-27 04:45 | NUR ---
PATIENT HAD ANOTHER LARGE BURGANDY STOOL. COLOR ASHEN, LIPS VERY PALE. HR 90'S-110'S.
[2019-07-27 04:57] LABS: IMMATURE GRANULOCYTES 0.6 % (0.0-5.0); MEAN CORPUSCULAR HGB 32.4 pG CALC (26.0-32.0); MEAN CORPUSCULAR HGB CONC 32.4 g/dL CAL (32.0-36.0); PLATELET COUNT 250 thou/uL (130-400); RED BLOOD COUNT 2.72 mill/uL (4.70-6.10); RED CELL DISTRI WIDTH 16.8 % (11.5-15.5)
--- NOTE | 2019-07-27 05:00 | NUR ---
SUPPORT AND REASSURANCE PROVIDED. PATIENT REQUEST THAT HIS SON ONI IS INFOMRED OF DECLINE IN CONDITION.
[2019-07-27 05:01] LABS: HEMATOCRIT 27.2 % (39.0-50.0); HEMOGLOBIN 8.8 g/dl (14.0-18.0)
[2019-07-27 05:10] LABS: INTERNATIONAL NORMALIZED RATIO 1.3 RATIO (0.7-1.3); PROTHROMBIN TIME 13.1 SECONDS (9.0-12.5)
[2019-07-27 05:11] LABS: ALBUMIN 2.8 g/dL (3.2-5.0); ALKALINE PHOSPHATASE 152 u/l (38-126); ANION GAP 10 (6-22 (CALC)); BILIRUBIN, TOTAL 1.4 mg/dL (0.0-1.4); BUN 26 mg/dL (8-23); BUN/CREATININE RATIO 30 (12-20 (CALC)); C-REACTIVE PROTEIN 6.6 mg/dL (0-0.9); CARBON DIOXIDE 26 mmol/l (22-30); CHLORIDE 107 mmol/l (95-108); CREATININE 0.9 mg/dL (0.7-1.3); GFR > 60 ML/MIN (>=60 (CALC)); GFR FOR AFR.AMER. > 60 ML/MIN (>=60 (CALC)); POTASSIUM 3.7 mmol/l (3.5-5.1); SGOT/AST 43 u/l (19-48); SODIUM 138 mmol/l (137-146); TOTAL PROTEIN 5.6 g/dL (6.3-8.2)
--- NOTE | 2019-07-27 05:15 | NUR ---
CALL TO DR LYON TO INFORM OF PATIENT PASSING BLOOD ORALLY AND RECTALLY, DROP IN HG AND HCT AND LOW BP. NEW ORDERS RECEIVED.
--- NOTE | 2019-07-27 05:30 | NUR ---
CONSNET FOR BLOOD OBTAINED VERBALLY FROM PATIENT. CALL TO PATIENT SON RUCHI AND DISCUSSED PATIENT CONDITION.
--- NOTE | 2019-07-27 06:00 | NUR ---
NEW IV SITE STARTED IN [facility], #22 X1 ATTEMPT FOR BLOOD TRANSFUSION.
--- NOTE | 2019-07-27 06:45 | NUR ---
REPORT REFCEIVED FROM Thierry RAMIREZ RN CARE ASSUMED.
--- NOTE | 2019-07-27 06:45 | NUR ---
SPOKE WITH DR LYON REGARDING PATIENT VERBALIZATION OF LIVING WILL AND REQUEST TO BE MADE A DNR.
--- NOTE | 2019-07-27 06:45 | NUR ---
REPORT GIVEN TO C NEADS/RN.
--- NOTE | 2019-07-27 07:00 | NUR ---
PT RESTING IN BED AWAKE. PT IS ALERT AND ORIENTED X3. PT WITH BLOOD NOSE AND SPUTUM WITH CLOTS. PT PROVIDED BED CAGLE. UNABLE TO HAVE BM AT THIS TIME. PRBCS STARTED AT THIS TIME WELL. LINENS CHANGED. AM CARE PROVIDED. SHIFT ASSESSMENT COMPLETED AT THIS TIME. IV PATENT X2. CALL LIGHT IN REACH. WILL CONTINUE TO MONITOR.
--- NOTE | 2019-07-27 07:05 | NUR ---
1 UNIT OF PRBCS INFUSING AT THIS TIME.
--- NOTE | 2019-07-27 07:40 | NUR ---
ASSISTED PT TO BED CAGLE AT THIS TIME. UNABLE TO HAVE BM. PT CONTINUES WITH COPIOUS AMOUNTS OF BLOODY SPUTUM
--- NOTE | 2019-07-27 08:14 | NUR ---
RADIOLOGY AT BEDSIDE AT THIS TIME.
--- NOTE | 2019-07-27 08:30 | NUR ---
PHONED SON RUCHI. NOTIFIED OF FURTHER DECLINE IN CONDITION. SON IS ON HIS WAY DOWN. NOTIFIED NURSING DIRECTOR EMPLOYMENT Don EUGENE OF NEED FOR SON TO PATIENT SHE WILL NOTIFY ADMINISTRATION. DR LYON NOTIFIED AND GAVE VERBAL OKAY WITH DECLINE WELL.
--- NOTE | 2019-07-27 08:30 | NUR ---
PT REQUESTING BED CAGLE. THIS NURSE IN ROOM AND HAD MULTIPLE LARGE BLOODY BMS WITH LARGE CLOTS. PT ALSO HAD LARGE BLOODY SPUTUMS AND NOSE BLEEDS.
--- NOTE | 2019-07-27 09:00 | NUR ---
DR LYON NOTIFIED OF INCREASED PAIN. ORDERS RECEIVED FOR MORPHINE PAIN EXPALINED TO PATIENT THAT THIS COULD DECREASE BLOOD PRESSURE AND COULD DECREASE RESPIRATORY STATUS. PT STILL REQUESTS MORPHINE FOR PAIN. PT STATES THAT IF BLOOD PRESSURE GOES DOWN HE WOULD LIKE MEDICATION TO SUPPORT BP UNTIL SON RUCHI HAS TIME TO MAKE IT HERE TO SAY GOODBYE AFTER THAT HE WOULD LIKE MEDICATION TO STOP.
--- NOTE | 2019-07-27 09:10 | NUR ---
1 UNIT OF PRBCS COMPLETED INFUSING AT THIS TIME
--- NOTE | 2019-07-27 09:30 | NUR ---
FAMILY PHONED. CONNECTED TO CORDLESS AND INTO ROOM.
[2019-07-27 09:49] LABS: MANUAL DIFFERENTIAL YES
[2019-07-27 10:21] LABS: ANISOCYTOSIS FEW; OVALOCYTES FEW; POLYCHROMASIA FEW
[2019-07-27 10:22] LABS: PLATELET ESTIMATE NORMAL
--- NOTE | 2019-07-27 10:30 | NUR ---
PT DIAPHORETIC AND PALE AT THIS TIME. REPEAT HGB OBTAINED AND SENT TO LAB AT THIS TIME WELL.
--- NOTE | 2019-07-27 10:40 | NUR ---
PROTONIX DRIP AND MAGNESIUM INFUSION STARTED PER ORDERS AND MAR. PT CONTINUES TO HAVE BLOODY SPUTUM AND BLOODY NOSE. CALL LIGHT IN REACH. WILL CONTINUE TO MONITOR.
[2019-07-27 10:55] LABS: HEMATOCRIT 23.5 % (39.0-50.0); HEMOGLOBIN 7.6 g/dl (14.0-18.0)
--- NOTE | 2019-07-27 11:55 | NUR ---
PHONED DR LYON AND UPDATED ON LABS AND PT STATUS. NEW ORDERS RECEIVED.
--- NOTE | 2019-07-27 12:16 | NUR ---
PT CIRCUIT DESIGN ENGINEER LIGHT REQUESTING HELP HAD A LARGE AMOUNT OF BLOODY SPUTUM FROM MOUTH AND NOSE.
--- NOTE | 2019-07-27 12:30 | NUR ---
PT VOMITTED 200CC OF BLOODY EMESIS. THIS NURSE REMAINS AT BEDSIDE. COOL CLOTH APPLIED FOR COMFORT. NOTIFIED RENATA GARIBAY FOR NEW ORDERS.
--- NOTE | 2019-07-27 13:43 | NUR ---
2ND UNIT OF PRBCS INFUSING AT THIS TIME.
--- NOTE | 2019-07-27 14:00 | NUR ---
PT RESTING IN BED AT THIS TIME. VSS ON MONITOR. CALL LIGHT IN REACH. WILL CONTINUE TO MONITOR.
--- NOTE | 2019-07-27 15:40 | NUR ---
PHONED SON RUCHI. EXPLAINED THAT HE WILL NOT BE ABLE TO GO INTO ROOM. SON VERBALIZED UNDERSTANDING.
--- NOTE | 2019-07-27 16:05 | NUR ---
2ND UNIT OF PRBCS COMPLETED. LIVIER HAD 2 LARGE BLOODY BMS AT THIS TIME. LEVOPHED DECREASED PER TITRATION CHARTING.
--- NOTE | 2019-07-27 16:55 | NUR ---
REPEAT HGB OBTAINED AT THIS TIME. PT TOLERATED WELL. WILL CONTINUE TO MONITOR.
[2019-07-27 17:04] LABS: HEMATOCRIT 24.2 % (39.0-50.0)
--- NOTE | 2019-07-27 18:34 | NUR ---
INTO ROOM PT FRESHENED UP AT THIS TIME. GOWN CHANGED. LINENS CHANGED. CALL LIGHT IN REACH. PT STATES HE IS FEELING A BIT BETTER THAN EARLIER TODAY. CALL LIGHT IN REACH. WILL CONTINUE TO MONITOR.
--- NOTE | 2019-07-27 18:40 | NUR ---
SON OUTSIDE DOOR SEEING PATIENT. ABLE TO SPEAK TO PATIENT ON PHONE THROUGH DOOR.
--- NOTE | 2019-07-27 18:45 | NUR ---
REPORT GIVEN TO Thierry SHEIKH RN.
--- NOTE | 2019-07-27 19:35 | NUR ---
PATIENT STILL HERE VISITING. VISITOR IS OUTSIDE OF ROOM AND PATIENT BED HAS BEEN MOVED CLOSE TO DOOR, THEY ARE CONVERSING VIA TELEPHONE. ASSESSMENT DEFERRED AT THIS TIME.
--- NOTE | 2019-07-27 20:00 | NUR ---
SON LEFT FOR THE NIGHT, EXPRESSED APPRECIATION OF THE WINDOW VISIT AND OF THANKS FOR CARE PROVIDED TO HIS FATHER.
--- NOTE | 2019-07-27 20:10 | NUR ---
BED REPOSITIONED IN ROOM, PATIENT PLACED BACK ON MONITORS. RESTING IN BED WITHOUT ANY COMPLAINTS OF PAIN OR DISCOMFORTS. RESP NON-LABORED AT REST. USING O2 PER NS AT 4 L. O2 SAT 100% BREATH SOUNDS DECRESED THOGHOUT LUNG ESCOBAR. ABD SOFTLY DISTENDED WITH ACTIVE BOWEL SOUNDS. LEVOPHED GTT AT 8 MCG/MIN INTO LFA IV SITE. NS AT 100 ML/HR AND PROTONIX GTT AT 10 ML/HR INTO LAC IV SITE. BOTH IV SITES HEALTHY. MESSER DRAINS CLEAR YELLOW URINE. DISCUSSED PLAN OF CARE. EMOTIONAL SUPPORT AND REASSURANCE PROVIDED TO PATIENT. NO NEEDS IDENTIFIED AT THIS TIME. CALL READ IN REACH.
--- NOTE | 2019-07-27 21:00 | NUR ---
BLOOD DRAWN FOR H&H ORDERED.
[2019-07-27 21:19] LABS: HEMOGLOBIN 7.5 g/dl (14.0-18.0)
--- NOTE | 2019-07-27 21:30 | NUR ---
H&H RESULTS 7.5 AND 22.[address] LYON, NEW ORDERS RECEIVED.
--- NOTE | 2019-07-27 22:40 | NUR ---
MEDICATED WITH MORPHINE 4 MG SLOW IVP FOR C/O RIGHT HIP PAIN. PATIENT ADVISED OF DROP IN HG AND HCT AND NEED FOR ADDITIIONAL TRANSFUSION, PATIENT VERBALIZES UNDERSTANDING AND AGREEMENT WITH TREATMENT PLAN. NEW IV SITE ESTABLISHED IN RH #22 X1 ATTEMPT. NS STARTED AT [facility] FOR TRANSFUSION.
--- NOTE | 2019-07-27 23:00 | NUR ---
UNIT OF PRBC'S VERIFIED AND STARTED. PRE-TRANSFUSION VSS. REVIEWED WITH PATIENT S/S OF TRANSFUSION REACTION. SEE TAR FOR FURTHER INFORMATION.
--- NOTE | 2019-07-27 23:15 | NUR ---
NO S/S OF TRANSFUSION REACTION. VSS. PATIENT RESTING WITH EYES CLOSED.
[2019-07-28] VITALS (33 sets, daily range): BP systolic 91–139; BP diastolic 53–86
--- NOTE | 2019-07-28 00:01 | NUR ---
VSS. PATIENT RESTING WITH EYES CLOSED. RESP NON-LABORED.
--- NOTE | 2019-07-28 01:10 | NUR ---
TRANSFUSION COMPLETED, WELL TOLERATED BY PATIENT. VSS. AFEBRILE. REPOSITIONS SELF IN BED. DOZES FOR SHORT INTERVALS.
--- NOTE | 2019-07-28 02:00 | NUR ---
SLEEPING, RESP EVEN AND UNLABORED. O2 SAT 100%
--- NOTE | 2019-07-28 03:15 | NUR ---
PATIENT HAD LARGE BURGANDY COLORED LIQUID STOOL ON BEDPAN. REPOSTIONED IN BED WITH MINIMAL ASSIST. VSS. DYSPNEIC WITH EXERTION BUT RECOVERS QUICKLY WITH REST.
--- NOTE | 2019-07-28 04:15 | NUR ---
HAD SMALL BURGANDY STOOL ON BEDPAN.
[2019-07-28 05:43] LABS: ALBUMIN 2.5 g/dL (3.2-5.0); ALKALINE PHOSPHATASE 105 u/l (38-126); ANION GAP 6 (6-22 (CALC)); BILIRUBIN, TOTAL 1.7 mg/dL (0.0-1.4); BUN 23 mg/dL (8-23); BUN/CREATININE RATIO 28 (12-20 (CALC)); CARBON DIOXIDE 25 mmol/l (22-30); CHLORIDE 111 mmol/l (95-108); CREATININE 0.8 mg/dL (0.7-1.3); GFR > 60 ML/MIN (>=60 (CALC)); GFR FOR AFR.AMER. > 60 ML/MIN (>=60 (CALC)); POTASSIUM 3.7 mmol/l (3.5-5.1); SGOT/AST 26 u/l (19-48); SODIUM 139 mmol/l (137-146); TOTAL PROTEIN 5.1 g/dL (6.3-8.2)
--- NOTE | 2019-07-28 05:45 | NUR ---
USED BEDPAN AGAIN FOR LARGE BURGANDY STOOL. COMPLETE BED BATH GIVEN AND LINENS CHANGED. PATIENT IS ABLE TO TURN SELF FROM SIDE TO SIDE. C/O RT HIP PAIN.
--- NOTE | 2019-07-28 06:05 | NUR ---
MEDICATED WITH MORPHINE 4 MG SLOW IVP FOR C/O PAIN.
[2019-07-28 06:10] LABS: HEMATOCRIT 23.7 % (39.0-50.0); HEMOGLOBIN 8.1 g/dl (14.0-18.0); IMMATURE GRANULOCYTES 2.2 % (0.0-5.0); MEAN CORPUSCULAR HGB 32.1 pG CALC (26.0-32.0); MEAN CORPUSCULAR HGB CONC 34.2 g/dL CAL (32.0-36.0); NEUT# 8.5 thou/uL (1.82-7.42); RED BLOOD COUNT 2.52 mill/uL (4.70-6.10); RED CELL DISTRI WIDTH 16.9 % (11.5-15.5)
--- NOTE | 2019-07-28 06:45 | NUR ---
REPORT RECEIVED FROM Thierry RAMIREZ RN CARE ASSUMED.
--- NOTE | 2019-07-28 07:00 | NUR ---
PT RESTING IN BED ASLEEP. VSS ON MONITOR. RESP ARE EVEN AND UNLABORED. CALL LIGHT IN REACH. WILL CONTINUE TO MONITOR.
--- NOTE | 2019-07-28 08:00 | NUR ---
PT RESTING IN BED AWAKE. PT IS ALERT AND ORIENTED X3. SHIFT ASSESSMENT COMPLETED AT THIS TIME. IV PATENT X3. CALL LIGHT IN REACH.WILL CONTINUE TO MONIOTR. PT SET UP FOR AM MEAL. PT REQUESTED ONLY LIQUIDS AT THIS TIME.
--- NOTE | 2019-07-28 08:30 | NUR ---
DR ARMAS AT BEDSIDE AT THIS TIME.
[2019-07-28 09:15] LABS: C-REACTIVE PROTEIN 4.3 mg/dL (0-0.9)
--- NOTE | 2019-07-28 09:15 | NUR ---
[facility] PHONED FOR UPDATE.PDATE PROVIDED AT THIS TIME.
--- NOTE | 2019-07-28 09:17 | NUR ---
CONNECTED ROLDAN HOPPER WITH DR ARMAS VIA PHONE
--- NOTE | 2019-07-28 09:30 | NUR ---
REPOSITIONED BED FOR PATIENT TO BE ABLE TO VISIT WITH SON UPON ARRIVAL. PHONE AT BEDSIDE AT THIS TIME.
--- NOTE | 2019-07-28 10:30 | NUR ---
SON ON UNIT AT THIS TIME SITTING OUTSIDE OF ROOM TALKING TO PATIENT THROUGH GLASS.
--- NOTE | 2019-07-28 11:00 | NUR ---
O2 DECREASED TO 2L NC AND LEVO TITRATED PER TITRATION CHARTING. WILL CONTINUE TO MONITOR.
--- NOTE | 2019-07-28 11:49 | NUR ---
PT SET UP FOR NOON MEAL AT THIS TIME. LEVOPHED TITRATIONS PER TITRATIONS CHARTING.
--- NOTE | 2019-07-28 13:21 | NUR ---
PT RESTING IN BED WITH EYES CLOSED AT THIS TIME. RESP ARE EVEN AND UNLABORED. NO DISTRESS NOTED. VSS ON MONITOR. CALL LIGHT IN REACH. WILL CONTINUE TO MONITOR.
--- NOTE | 2019-07-28 13:45 | NUR ---
PT AT BEDSIDE AT THIS TIME.
--- NOTE | 2019-07-28 14:03 | NUR ---
07/27/19 Attempted to see patient. He was struggling with dyspnea and working with nursing who requested we hold the patient
--- NOTE | 2019-07-28 14:04 | NUR ---
PT note Patient is seen today for functional training and energy conservation techniques. He is able to get to EOB with mod assist of 1 and is limted by dyspnea at 2 pls. He took 5 minutes to recover with sat level at 95% before I moved him NWB to a chair. He was able to take 3 steps NWB but is limited by dyspnea . His o2 sats ranged from a low of 85% to 99 when he recovered. We worked on PLB and slow breath holds. Functionally, he is doing better than Sunday but is still limited by dyspnea
--- NOTE | 2019-07-28 14:05 | NUR ---
PT SITTING UP IN CHAIR AT THIS TIME. LEVO TITRATED PER TITRATIO CHARTING.
--- NOTE | 2019-07-28 15:00 | NUR ---
PT ASSISTED BACK TO BED AT THIS TIME. LEVOPHED DC'D AT THIS TIME. CALL LIGHT IN REACH. WILL CONTINUE TO MONITOR.
--- NOTE | 2019-07-28 16:00 | NUR ---
PT RESTING IN BED AT THIS TIME. RESP ARE EVEN AND UNLABORED. NO DISTRESS NOTED. VSS ON MONITOR. CALL LIGHT IN REACH. WILL CONTINUE TO MONITOR.
--- NOTE | 2019-07-28 16:00 | NUR ---
NOTE ENTERED UNDER TIMO HERNANDEZ'S NAME WAS WROTE BY THIS NURSE.
--- NOTE | 2019-07-28 17:20 | NUR ---
PT SET UP FOR PM MEAL AT THIS TIME. WILL CONTINUE TO MONITOR.
--- NOTE | 2019-07-28 17:33 | NUR ---
DR ARMAS PHONED FOR UPDATE. UPDATE PROVIDED. ORDERS RECEIVED TO STOP KVO FLUIDS AT THIS TIME.
--- NOTE | 2019-07-28 18:05 | NUR ---
PT SITTING UP IN BED EATING DINNER. RESP ARE EVEN AND UNLABORED. NO DISTRESS NOTED CALL LIGHT IN REACH. WILL CONTINUIE TO MONITOR.
--- NOTE | 2019-07-28 19:15 | NUR ---
PT ASSISTED TO BEDSIDE COMMODE. CALL READ IN REACH.
--- NOTE | 2019-07-28 19:55 | NUR ---
ASSISTED BACK TO BED. PT HAD SMALL BLOODY STOOL. PT BECOMES SOB ON EXERTION. CALL READ IN REACH.
--- NOTE | 2019-07-28 22:00 | NUR ---
PT LYING ON R SIDE, WATCHING TV. NO RESP DISTRESS AT THIS TIME. CALL READ IN REACH.
[2019-07-29] VITALS (20 sets, daily range): BP systolic 97–140; BP diastolic 58–93
--- NOTE | 2019-07-29 | NUR ---
PT BRUSHED TEETH, REPOSITIONED PILLOWS. SOB WITH EXERTION. CALL READ IN REACH.
--- NOTE | 2019-07-29 01:10 | NUR ---
PT C/O 11/09 R HIP PAIN, REQUESTED LORTAB.
--- NOTE | 2019-07-29 02:00 | NUR ---
PT WITH EYES CLOSED, SA02 96%. NO DISTRESS NOTED. CALL READ IN REACH.
--- NOTE | 2019-07-29 04:00 | NUR ---
PT ANXIOUS, SOB, TACHYPNIC. INSTRUCTED PT TO TAKE SLOW DEEP BREATHS. PT CALMED DOWN, SA02 RETURNED TO 90'S. CALL READ IN REACH.
[2019-07-29 05:22] LABS: HEMATOCRIT 22.4 % (39.0-50.0); HEMOGLOBIN 7.4 g/dl (14.0-18.0); IMMATURE GRANULOCYTES 2.6 % (0.0-5.0); MEAN CELL VOLUME 96.6 fL CALC (80.0-100.0); MEAN CORPUSCULAR HGB 31.9 pG CALC (26.0-32.0); NEUT# 6.77 thou/uL (1.82-7.42); RED BLOOD COUNT 2.32 mill/uL (4.70-6.10); RED CELL DISTRI WIDTH 17.4 % (11.5-15.5)
[2019-07-29 05:43] LABS: ALBUMIN 2.9 g/dL (3.2-5.0); ALKALINE PHOSPHATASE 95 u/l (38-126); BILIRUBIN, TOTAL 1.1 mg/dL (0.0-1.4); BUN 19 mg/dL (8-23); BUN/CREATININE RATIO 20 (12-20 (CALC)); CARBON DIOXIDE 23 mmol/l (22-30); CHLORIDE 109 mmol/l (95-108); CREATININE 0.9 mg/dL (0.7-1.3); GFR > 60 ML/MIN (>=60 (CALC)); GFR FOR AFR.AMER. > 60 ML/MIN (>=60 (CALC)); SGOT/AST 30 u/l (19-48); SODIUM 139 mmol/l (137-146); TOTAL PROTEIN 5.5 g/dL (6.3-8.2)
[2019-07-29 05:45] LABS: ANION GAP 11 (6-22 (CALC)); POTASSIUM 3.8 mmol/l (3.5-5.1)
--- NOTE | 2019-07-29 06:00 | NUR ---
PT CALM, NO C/O PAIN OR SOB. SA02 99% CALL READ IN REACH.
--- NOTE | 2019-07-29 06:42 | NUR ---
REPORT TO FREDY TILLEY.
--- NOTE | 2019-07-29 06:45 | NUR ---
REPORT RECEIVED FROM Misha CARNEY RN. CARE ASSUMED.
--- NOTE | 2019-07-29 07:00 | NUR ---
NOTIFIED DR ARMAS OF HGB OF 7.4. NO NEW ORDERS AT THIS TIME.
--- NOTE | 2019-07-29 07:30 | NUR ---
PT RESTING IN BED AWAKE. PT IS ALERT AND ORIENTED X3. SHIFT ASSESSMENT COMPLETED AT THIS TIME. IV PATENT X2. PT ASSISTED UP TO CHAIR AT BEDSIDE AT THIS TIME. PT SET UP FOR AM MEAL AT THIS TIME. VSS ON MONITOR. LINENS STRIPPED. PT REQUESTS TO GET A BATH AND WASH HAIR AND SHAVE THIS AM. EXPLAINED THAT WE WILL DO THAT THIS AM. PT REQUESTED THAT SON BRING RAZOR FROM HOME TO SHAVE. PHONED SON TO BRING RAZOR TO SHAVE. CALL LIGHT IN REACH. WILL CONTINUE TO MONITOR.
--- NOTE | 2019-07-29 09:00 | NUR ---
DR ARMAS IN ROOM AT THIS TIME.
--- NOTE | 2019-07-29 09:15 | NUR ---
PT ASSISTED WITH AM CARE AT THIS TIME. LINENS CHANGED. ALL CORDS WIPED DOWN. BATHROOM CLEANED. ALL SURFACES WIPED DOWN. AND FLOORS MOPPED. ANTE ROOM CLEANED. PT THEN ASSISTED BACK TO BED. CALL LIGHT IN REACH.
--- NOTE | 2019-07-29 10:20 | NUR ---
1 UNIT OF PRBCS INFUSING AT THIS TIME.
--- NOTE | 2019-07-29 11:24 | NUR ---
PT RESTING IN BED WITH EYES CLOSED AT THIS TIME. RESP ARE EVEN AND UNLABORED. NO DISTRESS NOTED. CALL LIGHT IN REACH. WILL CONTINUE TO MONIOTR.
--- NOTE | 2019-07-29 11:40 | NUR ---
PT ASSISTED UP TO CHAIR FOR LUNCH AT THIS TIME. PT TOLERATED WELL. CALL LIGHT IN REACH. WILL CONTINUE TO MONITOR.
--- NOTE | 2019-07-29 12:40 | NUR ---
SON OUTSIDE OF TAMERA TALKING THROUGH GLASS ON PHONE TO PATIENT AT THIS TIME.
--- NOTE | 2019-07-29 13:15 | NUR ---
1 UNIT PRBC COMPLETED AT THIS TIME. PT STATES THAT HE IS FEELING BETTER SINCE SEEING SON AND WOULD LIKE TO STAY SITTING UP IN CHAIR FOR AWHILE AND READ THE PAPER. CALL LIGHT IN REACH. WILL CONTINUE TO MONITOR.
--- NOTE | 2019-07-29 14:03 | NUR ---
PHYSICAL THERAPY AT BEDSIDE
--- NOTE | 2019-07-29 14:30 | NUR ---
PT UP TO BSC FOR SMALL BLOODY BM. PT CLEANSED THEN ASSISTED TO SIT UP ON SIDE OF BED. PT SHAVED. PT THEN ASSISTED UP INTO BED. CALL LIGHT IN REACH. WILL CONTINUE TO MONITOR.
--- NOTE | 2019-07-29 16:02 | NUR ---
PT RESTING IN BED AWAKE AND WATCHING TV. RESP ARE EVEN AND UNLABORED. NO DISTRESS NOTED. VSS ON MONITOR. CALL LIGHT IN REACH. WILL CONTINUE TO MONITOR.
--- NOTE | 2019-07-29 16:13 | NUR ---
PT note Patient doing much better tdaywith improved affect. He is dypsneic at 1+ at rest . He is OOB with nursing staff. I came in and helped him adviance RLE isometric exercises and review DBE. He maintained sats above 94% but had to go very slowly as he is limited by dyspnea. HR paced at 107. Funciotnally he has improved standing to requiring onlymin assist but is unsteady and limited in activity due to dyspnea. His o2 sats are maintained above 94% and he was on o2 2lnc.
--- NOTE | 2019-07-29 17:35 | NUR ---
THIS NURSE INTO ROOM. PT APPEARS TO BE SOB AT REST AND USE OF ACCESSORY MUSLES. SPO2 98%. PT TACHYPNEIC. LUNG SOUNDS ARE WHEEZING POSTERIOR. DR ARMAS PHONED. NEW ORDERS RECEIVED. PT REASSURED AT THIS TIME. PT OFFERRED TRAY AT THIS TIME. PT REQUESTED TO ONLY KEEP FRUIT. PT COUGHING AND NOW BRINGIN UP THICK WHITE SPUTUM. CALL LIGHT IN REACH. WILL CONTINUE TO CLOSELY MONITOR.
--- NOTE | 2019-07-29 18:36 | NUR ---
PT REPORTS TO BE FEELING SOMEWHAT BETTER AT THIS TIME. VS REMAIN STABLE ON MONITOR. MESSER DRAINING CLEAR YELLOW URINE. APPEARS TO BE DIURESING WELL. 350CC IN URINE METER ON MESSER BAG AT THIS TIME. WILL REPORT THIS TO NEXT SHIFT WELL. CALL LIGHT REMAINS IN REACH.
--- NOTE | 2019-07-29 18:45 | NUR ---
RECEIVED REPORT FROM FREDY TILLEY.
--- NOTE | 2019-07-29 19:10 | NUR ---
ASSISTED PT TO SIT ON SIDE OF BED. SOB WITH EXERTION. CALL READ IN REACH.
--- NOTE | 2019-07-29 20:00 | NUR ---
PT SITTING ON SIDE OF BED TALKING ON TELEPHONE. PT RELATED HE WOULD LIKE TO CONTINUE SITTING ON SIDE OF BED. NO RESP DIFF NOTED. CALL READ IN REACH.
--- NOTE | 2019-07-29 20:30 | NUR ---
PT C/O 09/09 R HIP PAIN, REQUESTED PAIN MED.
--- NOTE | 2019-07-29 21:37 | NUR ---
ASSISTED PT BACK TO BED. CALL READ IN REACH.
--- NOTE | 2019-07-29 22:08 | NUR ---
PT LYING IN BED WATCHING TV. NO DISTRESS NOTED. CALL READ IN REACH.
[2019-07-30] VITALS (16 sets, daily range): BP systolic 96–152; BP diastolic 57–96
--- NOTE | 2019-07-30 00:58 | NUR ---
PT MOVING IN BED, LYING ON R SIDE. SA02 98% CALL READ IN REACH.
--- NOTE | 2019-07-30 02:00 | NUR ---
PT LYING IN BED WITH TV ON. SA02 99% CALL READ IN REACH.
--- NOTE | 2019-07-30 03:00 | NUR ---
PT FEELS ANXIOUS AND SOB LYING IN BED. PT TRANSFERRED SELF TO CHAIR WITH ASSIST. SA02 100% CALL READ IN REACH.
--- NOTE | 2019-07-30 04:00 | NUR ---
PT SITTING IN CHAIR. SA02 100% WATCHING TV, NO DISTRESS NOTED. CALL READ IN REACH.
--- NOTE | 2019-07-30 04:40 | NUR ---
#22 IV HL TO L HAND. LABS DRAWN.
[2019-07-30 05:10] LABS: HEMATOCRIT 26.2 % (39.0-50.0); HEMOGLOBIN 8.7 g/dl (14.0-18.0); IMMATURE GRANULOCYTES 2.9 % (0.0-5.0); MEAN CELL VOLUME 95.6 fL CALC (80.0-100.0); MEAN CORPUSCULAR HGB 31.8 pG CALC (26.0-32.0); MEAN CORPUSCULAR HGB CONC 33.2 g/dL CAL (32.0-36.0); NEUT# 7.71 thou/uL (1.82-7.42); RED BLOOD COUNT 2.74 mill/uL (4.70-6.10); RED CELL DISTRI WIDTH 17.7 % (11.5-15.5)
[2019-07-30 05:26] LABS: ALBUMIN 3.3 g/dL (3.2-5.0); ALKALINE PHOSPHATASE 101 u/l (38-126); ANION GAP 11 (6-22 (CALC)); BILIRUBIN, TOTAL 1.2 mg/dL (0.0-1.4); BUN 17 mg/dL (8-23); BUN/CREATININE RATIO 19 (12-20 (CALC)); CARBON DIOXIDE 23 mmol/l (22-30); CHLORIDE 107 mmol/l (95-108); CREATININE 0.9 mg/dL (0.7-1.3); GFR > 60 ML/MIN (>=60 (CALC)); GFR FOR AFR.AMER. > 60 ML/MIN (>=60 (CALC)); MAGNESIUM 1.4 mg/dL (1.6-2.3); POTASSIUM 3.5 mmol/l (3.5-5.1); SGOT/AST 33 u/l (19-48); SODIUM 138 mmol/l (137-146)
--- NOTE | 2019-07-30 06:00 | NUR ---
ASSISTED PT BACK TO BED. BECOMES SOB ON EXERTION. ENCOURAGED PT TO TAKE SLOW DEEP BREATHS. CALL READ IN REACH.
--- NOTE | 2019-07-30 06:45 | NUR ---
REPORT RECEIVED FROM NELI TILLEY.
--- NOTE | 2019-07-30 06:45 | NUR ---
REPORT TO FREDY TILLEY.
--- NOTE | 2019-07-30 07:00 | NUR ---
PT RESTING IN BED AWAKE. PT IS ALERT AND ORIENTED X3. SHIFT ASSESSMENT COMPLETED AT THIS TIME. IV PATENT X2. CALL LIGHT IN REACH. WILL CONTINUE TO MONITOR.
--- NOTE | 2019-07-30 08:00 | NUR ---
PT SET UP FOR AM MEAL AT THIS TIME. MAGNESIUM 4 GRAMS STARTED AT THIS TIME.
--- NOTE | 2019-07-30 09:10 | NUR ---
DR ARMAS AT BEDSIDE AT THIS TIME
--- NOTE | 2019-07-30 09:20 | NUR ---
RADIOLOGY AT BEDSIDE FOR CXR
--- NOTE | 2019-07-30 09:40 | NUR ---
322 REMOVED FROM RIGHT HAND PT STATED THAT IT WAS PAINFUL TO TOUCH. #20 STARTED TO RIGHT WRIST. TROPONIN OBTAINED AT THIS TIME WELL. EKG COMPLETED AT BEDSIDE. WILL CONTINUE TO CLOSELY MONITOR.
--- NOTE | 2019-07-30 09:40 | NUR ---
THIS FIREWORKS DISPLAY SPECIALIST IN ROOM WITH PATIENT. RN FAISAL PULLED MORPHINE 4MG IV TO PASS TO THIS FIREWORKS DISPLAY SPECIALIST AND DURING PASS THE MEDICATION VIAL DROPPED ON FLOOR AND BROKE. BOTH NURSES WITNESSED AND THEN WASTED VIA PYXIS.
--- NOTE | 2019-07-30 09:46 | NUR ---
MORPHINE GIVEN PER PT REQUEST AT THIS TIME PER MAR.
--- NOTE | 2019-07-30 10:30 | NUR ---
PT RESTING IN BED WITH EYES CLOSED AT THIS TIME. RESP ARE EVEN AND UNLABORED AT THIS TIME. NO DISTRESS NOTED. VSS ON MONITOR. CALL LIGHT IN REACH. WILL CONTINUE TO MONITOR.
--- NOTE | 2019-07-30 11:27 | NUR ---
DR ARMAS ON UNIT AND UPDATED ON PT STATUS. NEW ORDERS RECEIVED.
--- NOTE | 2019-07-30 12:00 | NUR ---
PT SET UP FOR LUNCH MEAL AT THIS TIME. PT REPORTS FEELING SOMEWHAT BETTER. CALL LIGHT IN REACH. WILL CONTINUE TO MONIOTR.
--- NOTE | 2019-07-30 13:35 | NUR ---
SON ON UNIT BROUGHT THE PAPER FOR PATIENT. PATIENT REQUESTED THAT DUE TO SHORTNESS OF BREATH THAT PATIENT CALL SON LATER AND TALK. SON VERBALIZED UNDERSTANDING. WILL CONTINUE TO MONITOR
--- NOTE | 2019-07-30 14:30 | NUR ---
PT RESTING IN BED WITH EYES CLOSED. ABDOMINAL BREATHING NOTED AT THIS TIME. RESPIRATORY RATE 32. O2 SATS REMAINS 94% OR GREATER. NOTIFIED DR ARMAS OF INCREASED WEIGHT AND ALL FINDINGS AT THIS TIME.
--- NOTE | 2019-07-30 15:09 | NUR ---
BUMEX IV GIVEN AND ATIVAN IV GIVEN PER MAR AND MD ORDERS. CALL LIGHT IN REACH. WILL CONTINUE TO CLOSELY MONITOR.
--- NOTE | 2019-07-30 18:00 | NUR ---
PT SET UP FOR PM MEAL. PT IS ALERT AND ORIENTED X3. PT REPORTS FEELING A BIT CONFUSED AND WOOZY. EXPLAINED THAT HE DID GET THE ATIVAN TO HELP HIS REST. CALL LIGHT IN REACH. WILL CONTINUE TO MONITOR.
--- NOTE | 2019-07-30 18:19 | NUR ---
PT NOTIED TO BE GETTING OUT OF BED AT THIS TIME. INSTRUCTED PT TO GET BACK IN BED. PT BACK IN BED. WILL CONTINUE TO CLOSELY MONITOR.
--- NOTE | 2019-07-30 18:25 | NUR ---
PT PULLED OUT IV x2 AT THIS TIME. PT PULLED OFF PULSE OXIMETER. IV STARTED NICO. PROTONIX INFUSING TO NICO AND ABT GOING IN SECONDARY. BED ALARM SET FOR PT SAFETY. CALL LIGHT IN REACH. WILL CONTINUE TO MONITOR.
--- NOTE | 2019-07-30 19:05 | NUR ---
RECEIVED REPORT FRON JAREK ERVIN. IV JUST REPLACED. PT BEDRESTING. RESP EVEN AND NONLABORED. NO COUGH NOTED. IV SECURES ON RIGHT UPPER ARM WITH COBAN. IV ABT AND PROTONIX INFUSING RX. NO DISTRESS NOTED. REMAINS ON AIRBORNE PRECAUTIONS IN ROOM 1
--- NOTE | 2019-07-30 19:54 | NUR ---
MOVING ABOUT IN BED-PULLING AT MESSER. PT STATES HE WANTS TUBE OUT. I EXPLAINED HE HAS RECEIVED DIURETICS AND THE PHYSICIAN WANTS TO MEASURE URINE OUTPUT. PT AGREED TO KEEP MESSER. PT ALERT AND COOPERATIVE AT THIS TIME. NO PEDAL EDEMA NOTED
--- NOTE | 2019-07-30 20:45 | NUR ---
BEDRESTING. TOLERATED BED BATH WELL. STOOD (WITH STANDBY ASSIST) TO ALLOW EASY LINEN CHANGE. SAID HE WOULD GO TO SLEEP AFTER THAT.
--- NOTE | 2019-07-30 21:30 | NUR ---
BEDRESTING. N/C VOICED. PROTONIX INFUSING RX. NO VOMIITNG OR DIARRHEA. DENIES PAIN
--- NOTE | 2019-07-30 22:30 | NUR ---
BEDRESTING. EYES CLOSED. NO COUGH NOTED. TV REMAIN ON. RESTLESS- SHEET ON THEN OFF. STRAIGHTENING SOCKS. MOVING ABOUT. DENIES PAIN
--- NOTE | 2019-07-30 23:19 | NUR ---
RESPIRATIONS EVEN AND NONLABORED. NO COUGH NOTED. WATCHING TV.
[2019-07-31] VITALS (19 sets, daily range): BP systolic 99–147; BP diastolic 67–92
--- NOTE | 2019-07-31 00:04 | NUR ---
WATCHING TV. N/C AT THIS TIME.
--- NOTE | 2019-07-31 01:09 | NUR ---
C/O RIGHT HIP PAIN AND REQUESTED PAIN MEDICATION. MORPHINE GIVEN PER REQUEST. PT SAID THAT IF HIS HIP PAIN WOULD EASE, THEN MAYBE HE CAN SLEEP
--- NOTE | 2019-07-31 01:30 | NUR ---
TURNED OFF LIGHTS AND TV. BEDRESTING WITH EYES CLOSED. NO DOSTRESS AT THIS TIME
--- NOTE | 2019-07-31 02:14 | NUR ---
BEDRESTING. NO COUGH NOTED. HAS BEEN COOPERATIVE.
--- NOTE | 2019-07-31 03:15 | NUR ---
PROTONIX CONTINUES. RESTING QUIETLY
--- NOTE | 2019-07-31 03:59 | NUR ---
TURNED TV ON FOR ABOUT 30 MINUTES IV MEDICATIONS HUNG. BEDRESTING WITH EYES CLOSED. STATED COUGHING UP CLEAR SPUTUM AT INTERVALS
[2019-07-31 05:01] LABS: HEMOGLOBIN 8.8 g/dl (14.0-18.0); MEAN CELL VOLUME 97.1 fL CALC (80.0-100.0); MEAN CORPUSCULAR HGB 31.7 pG CALC (26.0-32.0); MEAN CORPUSCULAR HGB CONC 32.6 g/dL CAL (32.0-36.0); RED BLOOD COUNT 2.78 mill/uL (4.70-6.10); RED CELL DISTRI WIDTH 18.8 % (11.5-15.5)
--- NOTE | 2019-07-31 05:02 | NUR ---
MORNING BLOOD DRAWN AND TO LAB. AM ANTIBIOTIC STARTED AT THIS TIME, TOO. DENIES PAIN. NO DISTRESS NOTED. WATCHING THE LIGHTENING AND RAIN. ALERT. COOPERATIVE
[2019-07-31 05:19] LABS: ALBUMIN 3.2 g/dL (3.2-5.0); ALKALINE PHOSPHATASE 100 u/l (38-126); ANION GAP 10 (6-22 (CALC)); BILIRUBIN, TOTAL 1.1 mg/dL (0.0-1.4); BUN 16 mg/dL (8-23); BUN/CREATININE RATIO 17 (12-20 (CALC)); CARBON DIOXIDE 26 mmol/l (22-30); CHLORIDE 105 mmol/l (95-108); CREATININE 0.9 mg/dL (0.7-1.3); GFR > 60 ML/MIN (>=60 (CALC)); GFR FOR AFR.AMER. > 60 ML/MIN (>=60 (CALC)); POTASSIUM 3.1 mmol/l (3.5-5.1); SGOT/AST 31 u/l (19-48); SODIUM 139 mmol/l (137-146); TOTAL PROTEIN 5.9 g/dL (6.3-8.2)
--- NOTE | 2019-07-31 06:45 | NUR ---
REPORT RECEIVED FROM SHANTEL KIRK RN. CARE ASSUMED.
--- NOTE | 2019-07-31 06:54 | NUR ---
CALLED FOR BEDPAN. SAID THAT HE NEEDS TO HAVE A BM BUT THINKS HE ALREADY STARTED WITH A LITTLE. PT HAD DARK RED SMEER ON SHEET. PT READILY TURNED SELF. SAT ON CAGLE FOR A FEW MINUTES WITH NO MORE STOOL OR RECTAL BLEEDING. HOWEVER, GIVEN THIS EXERTION OF TURNING, PT BECAME EXTREMELY SOB. REDIRECTED IN THROUGH NOSE AND OUT THROUGH MOUTH. PT READILY FOLLOWED DIRECTIONS AND BREATHING EASED.
--- NOTE | 2019-07-31 06:59 | NUR ---
REPORT GIVEN TO AZIZA,RN
--- NOTE | 2019-07-31 07:30 | NUR ---
PT RESTING IN BED AWAKE. PT IS ALERT AND ORIENTED X3. SHIFT ASSESSMENT COMPLETED AT THIS TIME. IV PATENT X1. PT SET UP FOR AM MEAL AT THIS TIME. CALL LIGHT IN REACH. OFFERED TO ASSIST PT UP CHAIR. PT DECLINED AT THIS TIME. PT NOTED TO BE SOB WITH MINIMAL TO NO EXERTION. O2 SATS 99%. PT REQUESTED TO INCREASE O2. O2 INCREASED TO 4L NC. CALL LIGHT IN REACH. WILL CONTINUE TO CLOSELY MONITOR.
--- NOTE | 2019-07-31 09:20 | NUR ---
PT RESTING IN BED AWAKE. PT GIVEN AM MEDS AT THIS TIME. ROOM CLEANED AT THIS TIME. CALL LIGHT IN REACH. WILL CONTINUE TO MONITOR.
--- NOTE | 2019-07-31 10:00 | NUR ---
DR ARMAS AT [facility] AT THIS TIME.
--- NOTE | 2019-07-31 11:30 | NUR ---
PT ASSISTED OUT OF BED AND ASSISTED TO RESTROOM WITH O2 EXTENNSION TO HAVE BM. PT NOTED TO HAVE MEDIUM BLOODY BM IN TOILET. PT ASSISTED TO CHAIR AT BEDSIDE WITH WALKER. LINENS CHANGED. PT BRUSHED TEETH. PT SET UP FOR NOON MEAL AT THIS TIME. CALL LIGHT IN REACH. WILL CONTINUE TO MONITOR.
--- NOTE | 2019-07-31 12:30 | NUR ---
SON OUTSIDE OF ROOM VISITING WITH PATIENT VIA PHONE.
--- NOTE | 2019-07-31 14:00 | NUR ---
PT SITTING UP IN THAT CHAIR AT THIS TIME. RESP ARE EVEN AND UNLABORED. NO DISTRESS NOTED. CALL LIGHT IN REACH. WILL CONTINUE TO MONITOR.
--- NOTE | 2019-07-31 15:30 | NUR ---
PT ASSISTED BACK TO BED AT THIS TIME. SOB NOTED ON EXERTION. VSS ON MONITOR. CALL LIGHT IN REACH. WILL CONTINUE TO MONITOR.
--- NOTE | 2019-07-31 16:00 | NUR ---
PT RESTING IN BED AT THIS TIME. RESP ARE EVEN AND UNLABORED. NO DISTRESS NOTED. CALL LIGHT IN REACH. WILL CONTINUE TO MONITOR.
--- NOTE | 2019-07-31 16:18 | NUR ---
07/30/19 PT note: Patient has been able to get OOB to chair with nursing. I attempted to see him but he was dypsneic at rest and the decision was made to hold therapy until 07/30. 07/31/19 PT note Patient is seen by nursing who was able to walk with him in room - limited by dyspnea. I came in just after his walk. He has also been OOB with nursing and is doing well maintaining O2 sats. We will continue to see him 07/31
--- NOTE | 2019-07-31 17:54 | NUR ---
PT ASSISTED UP TO CHAIR FOR EVENING MEAL. PT TOLERATED TRANSFER WELL. CALL LIGHT IN REACHL. WILL CONTINUIE TO MONITOR.
--- NOTE | 2019-07-31 21:31 | NUR ---
returned to bed with standby assist-tolerated well. became sob with exertion but saturation not below 90% on O2 via n/c. no cough noted
--- NOTE | 2019-07-31 22:56 | NUR ---
PAIN PILL PER PATIENT'S REQUEST. STATES HIP THROBBING WITH MOVEMENT. WATING TV.
[2019-08-01] VITALS (17 sets, daily range): BP systolic 95–139; BP diastolic 61–89
--- NOTE | 2019-08-01 00:51 | NUR ---
BEDRESTING. LIGHTS OUT. RESPIRATION EVEN AND NONLABORED. N/C VOICED
--- NOTE | 2019-08-01 02:00 | NUR ---
BEDRESTING. LIGHTS OUT AND TV OFF. NO COUGHING NOTED
--- NOTE | 2019-08-01 02:46 | NUR ---
BEDRESTING/ N/C VOICED. CONTINUE PRECAUTIONS RX. NO DISTRESS AT THIS TIME. IV REMAINS HL.
--- NOTE | 2019-08-01 04:35 | NUR ---
BEDRESTING. WATCHING TV. N/C AT THIS TIME
[2019-08-01 06:06] LABS: HEMATOCRIT 28.8 % (39.0-50.0); HEMOGLOBIN 9.2 g/dl (14.0-18.0); IMMATURE GRANULOCYTES 1.9 % (0.0-5.0); MEAN CORPUSCULAR HGB 31.6 pG CALC (26.0-32.0); MEAN CORPUSCULAR HGB CONC 31.9 g/dL CAL (32.0-36.0); NEUT# 6.44 thou/uL (1.82-7.42); RED BLOOD COUNT 2.91 mill/uL (4.70-6.10); RED CELL DISTRI WIDTH 19.1 % (11.5-15.5)
[2019-08-01 06:20] LABS: ALBUMIN 3.5 g/dL (3.2-5.0); ALKALINE PHOSPHATASE 98 u/l (38-126); ANION GAP 8 (6-22 (CALC)); BILIRUBIN, TOTAL 1.1 mg/dL (0.0-1.4); BUN 15 mg/dL (8-23); BUN/CREATININE RATIO 15 (12-20 (CALC)); C-REACTIVE PROTEIN 1.8 mg/dL (0-0.9); CARBON DIOXIDE 30 mmol/l (22-30); CHLORIDE 103 mmol/l (95-108); GFR > 60 ML/MIN (>=60 (CALC)); GFR FOR AFR.AMER. > 60 ML/MIN (>=60 (CALC)); POTASSIUM 3.2 mmol/l (3.5-5.1); SGOT/AST 35 u/l (19-48); SODIUM 138 mmol/l (137-146); TOTAL PROTEIN 6.6 g/dL (6.3-8.2)
--- NOTE | 2019-08-01 06:30 | NUR ---
BEDRESTING. WATCHING TV. N/C VOICED
--- NOTE | 2019-08-01 07:00 | NUR ---
REPORT RECEIVED FROM SHANTEL TILLEY
--- NOTE | 2019-08-01 07:00 | NUR ---
REPORT TO AZIZA. RESTING NO DISTRESS.
--- NOTE | 2019-08-01 07:30 | NUR ---
PT RESTING IN BED WITH EYES CLOSED. AROUSES EASILY TO VERBAL STIMULIL. PT IS ALERT AND ORIENTED X3. SHIFT ASSESSMENT COMPLETED AT THIS TIME. IV PATENT X1. CALL LIGHT IN REACH. WILL CONTINUE TO MONITOR.
--- NOTE | 2019-08-01 08:10 | NUR ---
PT MULTI [employer]OWNSHIP ASSESSOR LIGHT REQUESTING TO BE UNTANGLED. THIS NURS INTO ROOM. PT SITTING UP ON SIDE OF BED. PT ASSISTED UP TO CHAIR AT SIDE OF BED. ASISSTED WITH AM MEAL. CALL LIGHT IN REACH. WILL CONTINUE TO TR.
--- NOTE | 2019-08-01 08:58 | NUR ---
DR ARMAS AT BEDSIDE
--- NOTE | 2019-08-01 10:00 | NUR ---
PT SITTING UP IN CHAIR AT BEDSIDE. RESP ARE EVEN AND UNLABORED. VSS ON MONITOR. CALL LIGHT IN REACH. WILL CONTINUE TO MONITOR.
--- NOTE | 2019-08-01 11:45 | NUR ---
PT SET UP FOR NOON MEAL. PT REAMINS UP IN CHAIR AT THIS TIME. RESP ARE EVEN AND UNLABORED. NO DISTRESS NOTED. CALL LIGHT IN REACH. WILL CONTINUE TO MONITOR.
--- NOTE | 2019-08-01 12:58 | NUR ---
SON OUTSIDE OF ROOM VISITING WITH PATIENT VIA PHONE
--- NOTE | 2019-08-01 13:21 | NUR ---
PT ASSISTED TO AMBULATE TO BATHROOM FOR BM AT THIS TIME.
--- NOTE | 2019-08-01 13:33 | NUR ---
LARGE BROWN BM NOTED. PT CLEANSED. PT ASSISTED BACK TO BED. CALL LIGHT IN REACH. WILL CONTINUE TO MONIOTR.
--- NOTE | 2019-08-01 14:55 | NUR ---
REPORT RECEIVED FROM JAREK DANIEL. PT RESTING IN BED. NO DISTRESS NOTED. WILL CONTINUE TO MONITOR
--- NOTE | 2019-08-01 16:24 | NUR ---
PT RESTING IN BED WITH EYES CLOSED. NO DISTRESS NOTED. WILL CONTINUE TO MONITOR.
--- NOTE | 2019-08-01 18:00 | NUR ---
PT UP ON SIDE OF BED TO EAT DINNER. NO DISTRESS NOTED. PAIN MEDICATIONS GIVEN. NO SOB NOTED. REPORT TO BE GIVEN TO [facility] NURSE
--- NOTE | 2019-08-01 18:50 | NUR ---
RECEIVED REPORT. PT BEDRESTING WITH ANTIBIOTICS INFUSING. NO DISTRESS OR REACTION NOTED.
--- NOTE | 2019-08-01 19:10 | NUR ---
BEDRESTING. WATCHING TV. DENIES PAIN OR DISTRESS. DECLINED BATH. STATES HE WILL JUST WASH HIS FACE AND BRUSH TEETH AT 2100-BEFORE GOING TO SLEEP. NO EDEMA NOTED. MOVES ABOUT IN BED WELL. STATES HE AMBULATED TO BATHROOM TODAY AND TOLERATED IT WELL. N/C AT 2L/MIN.
--- NOTE | 2019-08-01 20:00 | NUR ---
BEDRESTING. WATCHING TV. N/C AT THIS TIME
--- NOTE | 2019-08-01 21:30 | NUR ---
BEDRESTING. TALKATIVE. STOOD FOR LINEN TO BE STRAIGHTENED. TOLERATED WELL. PAIN MEDICATION GIVEN PER REQUEST. NOTED: THE MORE PT SPEAKS, O2 SAT DROPS. REMINDED TO BREATHE THROUGH NOSE (FOR N/C) AND OUT THROUGH MOUTH. FOLLOWS DIRECTIONS WELL
--- NOTE | 2019-08-01 23:00 | NUR ---
LIGHTS OUT. TV OFF. BEDRESTING. NO DISTRESS NOTED. NO COUGHING AT THIS TIME
[2019-08-02] VITALS (17 sets, daily range): BP systolic 90–133; BP diastolic 63–91
--- NOTE | 2019-08-02 00:53 | NUR ---
CONTINUES TO BEDREST. NO DISTRESS NOTED
--- NOTE | 2019-08-02 02:23 | NUR ---
bedresting. sat remains 100% on 2l o2 via n/c. no distress noted
--- NOTE | 2019-08-02 04:00 | NUR ---
bedresting. resp even and nonlabore. continues to have o2 via n/c. periodic moist cough noted
[2019-08-02 05:01] LABS: HEMATOCRIT 29.6 % (39.0-50.0); HEMOGLOBIN 9.2 g/dl (14.0-18.0); IMMATURE GRANULOCYTES 1.3 % (0.0-5.0); MEAN CELL VOLUME 100.3 fL CALC (80.0-100.0); MEAN CORPUSCULAR HGB 31.2 pG CALC (26.0-32.0); MEAN CORPUSCULAR HGB CONC 31.1 g/dL CAL (32.0-36.0); NEUT# 6.51 thou/uL (1.82-7.42); RED BLOOD COUNT 2.95 mill/uL (4.70-6.10); RED CELL DISTRI WIDTH 19.3 % (11.5-15.5)
[2019-08-02 05:10] LABS: ALBUMIN 3.4 g/dL (3.2-5.0); ALKALINE PHOSPHATASE 104 u/l (38-126); ANION GAP 10 (6-22 (CALC)); BILIRUBIN, TOTAL 1.1 mg/dL (0.0-1.4); BUN 16 mg/dL (8-23); BUN/CREATININE RATIO 16 (12-20 (CALC)); CARBON DIOXIDE 28 mmol/l (22-30); CHLORIDE 102 mmol/l (95-108); GFR > 60 ML/MIN (>=60 (CALC)); GFR FOR AFR.AMER. > 60 ML/MIN (>=60 (CALC)); SGOT/AST 31 u/l (19-48); SODIUM 136 mmol/l (137-146); TOTAL PROTEIN 6.3 g/dL (6.3-8.2)
--- NOTE | 2019-08-02 05:16 | NUR ---
blood drawn and to lab. Pain pill given per request. After, pt said he would nap for a while. lights off. TV still on. Resting
[2019-08-02 05:23] LABS: POTASSIUM 4.1 mmol/l (3.5-5.1)
--- NOTE | 2019-08-02 06:45 | NUR ---
RECIEVED REPORT FROM JAREK NATION. ASSUMED PT CARE.
--- NOTE | 2019-08-02 06:46 | NUR ---
iv abtibiotic given-tolerated well. spilled water on lap. stood and walked around bed to chair using walker (with standby assistance). moved slowly but steady. became sob with exertion. once seated, breathing deeply, breathing calmed and sat >90%. using spirometer intermittently and continues to almost reach 1000. sitting in chair watching tv.
--- NOTE | 2019-08-02 08:00 | NUR ---
PT SITTING IN RECLINER, A&0X3, ABLE TO MAKE NEEDS NKOWN. AFEBRILE, ASSESSMENT COMPLETED, NO DISTRESS NOTED AT THIS TIME. CALL LIGHT IN REACH. WILL MONITOR.
--- NOTE | 2019-08-02 09:00 | NUR ---
DR. MARTINEZ AT BEDSIDE FOR ASSESSMENT AND TO DISCUSS PLAN OF CARE, NEW ORDERS RECIEVED. WILL MONITOR.
--- NOTE | 2019-08-02 10:00 | NUR ---
PT SON ARRIVED ON UNIT, PT REMAINS IN ISOLATION, COMMUNICATED THROUGH CELL PHONE AND UNIT CORDLESS.
--- NOTE | 2019-08-02 10:53 | NUR ---
PT SON LEFT, PT ASSISTED BACK TO BED, PT TRANSFERRED WELL WITH SBA, MESSER REMAINS PATENT, DRAINING TO BSD VIA GRAVITY.CALL LIGHT IN REACH, WILL MONITOR.
--- NOTE | 2019-08-02 11:40 | NUR ---
DIETARY ON UNIT, LUNCH TRAY SET UP.
--- NOTE | 2019-08-02 13:32 | NUR ---
pt resting in bed with eyes closed, respirations even/unlabored, call light in reach. will monitor.
--- NOTE | 2019-08-02 14:49 | NUR ---
PT MEDICATED FOR HIP PAIN ORDERED PER PT REQUEST.
--- NOTE | 2019-08-02 15:35 | NUR ---
PT RESTING IN BED, EYES CLOSED. RESPIRATIONS EVEN/UNLABORED, SA02@100% ON 2LPM VIA NC. NO DISTRESS NOTED AT THIS TIME. CALL LIGHT IN REACH.
--- NOTE | 2019-08-02 17:00 | NUR ---
ASSISTED PT BACK TO RECLINER, PT TOLERATED WELL.
--- NOTE | 2019-08-02 17:37 | NUR ---
DIETARY ON UNIT DINNER TRAY SET UP.
--- NOTE | 2019-08-02 18:24 | NUR ---
PT REMAINS SITTING IN RECLINER, RESPIRATIONS EVEN/UNLABORED. WATCHING TV. CALL LIGHT N REACH. WILL MONITOR.
--- NOTE | 2019-08-02 19:00 | NUR ---
PT SITTING UP IN CHAIR WATCHING TV. NO DISTRESS NOTED.
--- NOTE | 2019-08-02 19:32 | NUR ---
RECEIVED REPORT FROM MICHAEL TILLEY.
--- NOTE | 2019-08-02 19:45 | NUR ---
PT AMB WITH WALKER TO BR. ATTEMPTED BM, NO RESULTS. PT BRUSHED TEETH AND WASHED FACE AT SINK. ASSISTED BACK TO BED. SOB WITH EXERTION.
--- NOTE | 2019-08-02 20:00 | NUR ---
PT IN BED TALKING ON PHONE. NO DISTRESS NOTED. CALL READ IN REACH.
--- NOTE | 2019-08-02 22:00 | NUR ---
PT WITH EYES CLOSED, SA02 98% CALL READ IN REACH.
[2019-08-03] VITALS (11 sets, daily range): BP systolic 102–130; BP diastolic 68–89
--- NOTE | 2019-08-03 | NUR ---
PT AWAKE AND ALERT WATCHING TV. NO NEEDS AT THIS TIME. CALL READ IN REACH.
--- NOTE | 2019-08-03 01:30 | NUR ---
PT RELATED HE COULD NOT SLEEP, FELT UNCOMFORTABLE. ASSISTED TO CHAIR, PROVIDED SNACK. CALL READ IN REACH.
--- NOTE | 2019-08-03 02:00 | NUR ---
PT SITTING UP IN CHAIR WORKING ON PUZZLE BOOK. CALL READ IN REACH.
--- NOTE | 2019-08-03 04:00 | NUR ---
PT SITTING UP IN CHAIR, C/O R HIP PAIN. MEDICATED PER MAY. CALL READ IN REACH.
[2019-08-03 05:10] LABS: HEMATOCRIT 29.9 % (39.0-50.0); HEMOGLOBIN 9.5 g/dl (14.0-18.0); IMMATURE GRANULOCYTES 1.1 % (0.0-5.0); MEAN CELL VOLUME 99.7 fL CALC (80.0-100.0); MEAN CORPUSCULAR HGB 31.7 pG CALC (26.0-32.0); MEAN CORPUSCULAR HGB CONC 31.8 g/dL CAL (32.0-36.0); NEUT# 6.89 thou/uL (1.82-7.42); RED CELL DISTRI WIDTH 18.7 % (11.5-15.5)
[2019-08-03 05:34] LABS: ANION GAP 11 (6-22 (CALC)); BUN 17 mg/dL (8-23); BUN/CREATININE RATIO 18 (12-20 (CALC)); CARBON DIOXIDE 27 mmol/l (22-30); CHLORIDE 101 mmol/l (95-108); CREATININE 0.9 mg/dL (0.7-1.3); GFR > 60 ML/MIN (>=60 (CALC)); GFR FOR AFR.AMER. > 60 ML/MIN (>=60 (CALC)); MAGNESIUM 1.7 mg/dL (1.6-2.3); POTASSIUM 4.1 mmol/l (3.5-5.1); SODIUM 135 mmol/l (137-146)
--- NOTE | 2019-08-03 06:38 | NUR ---
ASSISTED PT BACK TO BED. CALL READ IN REACH.
--- NOTE | 2019-08-03 06:45 | NUR ---
RECIEVED REPORT FROM JAREK QUINTEROS. ASSUMED PT CARE.
--- NOTE | 2019-08-03 06:54 | NUR ---
REPORT TO MICHAEL TILLEY.
--- NOTE | 2019-08-03 07:30 | NUR ---
PT RESTING IN BED, MEDICATED FOR R HIP PAIN 11/09 AND ANXIETY PER ORDERS REQUESTED. BREAKFAST TRAY SET UP. PT ASSISTED TO SIT UP ON SIDE OF BED. CALL LIGHT IN REACH. WILL MONITOR.
--- NOTE | 2019-08-03 09:00 | NUR ---
DR. MARTINEZ AT BEDSIDE FOR ASSESSMENT AND TO DISCUSS PLAN OF CARE, NEW ORDERS RECIEVED.
--- NOTE | 2019-08-03 10:00 | NUR ---
PT RESTING IN BED WITH EYES CLOSED, RESPIRATIONS EVEN. PACED ON TELEMETRY, HR 70. CALL LIGHT IN REACH. WILL MONITOR.
--- NOTE | 2019-08-03 10:30 | NUR ---
PT GIVEN COMPLETE BATH, LINEN CHANGE AND MESSER CARE. PT ASSISTED TO RECLINER. SON ARRIVED AT BEDSIDE, THEY VISITED THROUGH THE [facility] VIA PHONE.
--- NOTE | 2019-08-03 11:46 | NUR ---
PT SON LEFT. DIETARY ON UNIT, LUNCH TRAY SET UP.
--- NOTE | 2019-08-03 13:15 | NUR ---
PT MEDICATED FOR R HIP PAIN 12/10 ORDERED PER PT REQUEST. PT THEN ASSISTED BACK TO BED. CALL LIGHT IN REACH. WILL MONITOR.
--- NOTE | 2019-08-03 14:30 | NUR ---
pt resting in bed with eyes closed, respirations even/unlabored, no distress noted at this time.
--- NOTE | 2019-08-03 15:18 | NUR ---
pt assisted to recliner, taniya remains patent draining to bsd via gravity. call light in reach. will monitor.
[2019-08-03 16:26] LABS: C-REACTIVE PROTEIN 1.9 mg/dL (0-0.9)
--- NOTE | 2019-08-03 16:58 | NUR ---
PT REMAINS SITTING IN RECLINER, WATCHING TV. NO DISTRESS NOTED. CALL LIGHT IN REACH. WILL MONITOR.
--- NOTE | 2019-08-03 17:30 | NUR ---
DIETARY ON UNIT, DINNER TRAY SET UP.
--- NOTE | 2019-08-03 18:26 | NUR ---
PT ASSISTED BACK TO BED.
--- NOTE | 2019-08-03 18:45 | NUR ---
RECEIVED REPORT FROM MICHAEL TILLEY.
--- NOTE | 2019-08-03 19:10 | NUR ---
PT REQUESTED PAIN MED. C/O R HIP PAIN 12/10.
--- NOTE | 2019-08-03 20:00 | NUR ---
PT ANXIOUS, REQUESTED SOMEONE TO SIT WITH HIM. THIS RN SAT WITH PT, DISCUSSED RELAXATION TECHNIQUES. SLOW CONTROLLED BREATHING. PT RELATED HE FELT BETTER.
--- NOTE | 2019-08-03 21:40 | NUR ---
PT REMAINS ANXIOUS. MEDICATED PER MAY. SAT WITH PT. CALL READ IN REACH.
--- NOTE | 2019-08-03 22:00 | NUR ---
PT WITH EYES CLOSED, [id number] 99% CALL READ IN REACH.
[2019-08-04] VITALS (9 sets, daily range): BP systolic 101–124; BP diastolic 62–75
--- NOTE | 2019-08-04 | NUR ---
PT WITH EYES CLOSED, RESPONDS TO VERBAL STIMULI. NO DISTRESS NOTED. CALL READ IN REACH.
--- NOTE | 2019-08-04 01:00 | NUR ---
PT AWAKE SITTING ON SIDE OF BED. AMB WITH WALKER TO CHAIR. PT WOULD LIKE TO STAY IN CHAIR FOR AWHILE. CALL READ IN REACH.
--- NOTE | 2019-08-04 02:00 | NUR ---
PT SITTING UP IN CHAIR WATCHING TV. NO DISTRESS. CALL READ IN REACH.
--- NOTE | 2019-08-04 04:00 | NUR ---
PT SITTING UP IN CHAIR WATCHING TV. NO DISTRESS NOTED. CALL READ IN REACH.
[2019-08-04 05:12] LABS: HEMATOCRIT 29.1 % (39.0-50.0); HEMOGLOBIN 9.1 g/dl (14.0-18.0); IMMATURE GRANULOCYTES 0.9 % (0.0-5.0); MEAN CELL VOLUME 100.3 fL CALC (80.0-100.0); MEAN CORPUSCULAR HGB 31.4 pG CALC (26.0-32.0); MEAN CORPUSCULAR HGB CONC 31.3 g/dL CAL (32.0-36.0); NEUT# 5.88 thou/uL (1.82-7.42); RED BLOOD COUNT 2.9 mill/uL (4.70-6.10); RED CELL DISTRI WIDTH 18.6 % (11.5-15.5)
[2019-08-04 05:47] LABS: ANION GAP 10 (6-22 (CALC)); BUN 21 mg/dL (8-23); BUN/CREATININE RATIO 21 (12-20 (CALC)); CARBON DIOXIDE 30 mmol/l (22-30); CHLORIDE 101 mmol/l (95-108); GFR > 60 ML/MIN (>=60 (CALC)); GFR FOR AFR.AMER. > 60 ML/MIN (>=60 (CALC)); MAGNESIUM 1.5 mg/dL (1.6-2.3); POTASSIUM 4.1 mmol/l (3.5-5.1); SODIUM 137 mmol/l (137-146)
--- NOTE | 2019-08-04 06:00 | NUR ---
PT SITTING UP IN CHAIR WORKING ON PUZZLES. NO DISTRESS NOTED. CALL READ IN REACH.
--- NOTE | 2019-08-04 06:45 | NUR ---
REPORT RECEIVED FROM NELI TILLEY. CARE ASSUMED
--- NOTE | 2019-08-04 06:45 | NUR ---
REPORT TO FREDY TILLEY.
--- NOTE | 2019-08-04 07:00 | NUR ---
PT SEEN SITTING UP IN RECLINER. RESP ARE EVEN AND UNLABORED. VSS ON MONITOR. CALL LIGHT IN REACH. WILL CONTINUE TO MONIOTR.
--- NOTE | 2019-08-04 07:30 | NUR ---
PT SITTING UP IN CHAIR AT BEDSIDE. PT IS ALERT AND ORIENTED X3. SHIFT ASSESSMENT COMPLETED AT THIS TIME. IV PATENT X1. PT SET UP FOR AM MEAL AT THIS TIME. CALL LIGHT IN REACH. WILL CONTINUE TO MONITOR.
--- NOTE | 2019-08-04 09:00 | NUR ---
PT ASSISTED BACK TO BED AT THIS TIME. CALL LIGHT IN REACH. WILL CONTINUE TO MONITOR.
--- NOTE | 2019-08-04 09:48 | NUR ---
EVELIA FROM [facility] CALLED. UPDATE PROVIDED. DISCUSSED PTS ANXIETY AND DEPRESSION. VIRY STATES THAT SHE WILL CALL PATIENT LATER TODAY AND DISCUSS COPING STRATEGIES. WILL DISCUSS THIS WITH PATIENT NEXT TIME IN ROOM.
--- NOTE | 2019-08-04 10:17 | NUR ---
DR ARMAS AT BEDSIDE AT THIS TIME.
[2019-08-04] MEDS ORDERED: LORTAB5 PO (10:24)
[2019-08-04] MEDS ORDERED: PROTONIX40 M2 PO (10:24)
--- NOTE | 2019-08-04 11:15 | NUR ---
MESSER REMOVED PER MD ORDER. PT TOLERATED WELL. PT THEN SET UP FOR NOON MEAL. CALL LIGHT IN REACH. WILL CONTINUE TO MONITOR.
--- NOTE | 2019-08-04 11:30 | NUR ---
PT RESTING IN BED AWAKE. RESP ARE EVEN AND UNLABORED. NO DISTRESS NOTED. CALL LIGHT IN REACH. WILL CONTINUE TO MONITOR.
--- NOTE | 2019-08-04 12:30 | NUR ---
PT REPORTS VOIDING VIA TOILET
--- NOTE | 2019-08-04 12:33 | NUR ---
SON ON UNIT BROUGHT BAGS FOR PT TO GO TO REHAB. SON TOLD THIS NURSE THAT HE HAD PACKED PATIENT A FLASK OF VODKA BECAUSE HE DID NOT WANT TO TELL FATHER NO. ASKED IF NURSE WOULD CONFISCATE FLASK FROM PATIENT. THIS NURSE DID ASK TAKE THE FLASK FROM PATIENT BELONGINGS. PATIENT STATED TO JUST SEND IT HOME WITH SON. FLASK SENT HOME WITH DIRTY CLOTHES WITH SON.
--- NOTE | 2019-08-04 14:00 | NUR ---
PT SITTING UP IN CHAIR. RESP ARE EVEN AND UNLABORED. NO DISTRESS NOTED. CALL LIGHT IN REACH. WILL CONTINUE TO MONITOR.
--- NOTE | 2019-08-04 14:30 | NUR ---
PT note Stopped by to continue rehab. Miguel is in good spirits. He is up in bedside chair and breathing at 1 plus dyspnea. He is able to transfer to stand with min assist. He has theraband for HEP and is doing well with NWB. He should do well with continued rehab at the nxt level of care
--- NOTE | 2019-08-04 16:00 | NUR ---
DISCHARGE INSTRUCTIONS REVEIWED WTIH PATIENT. PATIENT VERBALIZED UNDERSTANDING. IV DC'D FROM [facility]AC. CATH TIP INTACT. PT TOLERATED WELL. NIURKA ON UNIT. REPORT PROVIDED.
--- NOTE | 2019-08-04 16:15 | NUR ---
Discharge instructions given. Patient verbalizes understanding of same. Discharged in stable condition via Medical Transport to [facility] with [employer]. All belongings sent with pt.
[2019-11-25] MEDS ORDERED: MIRTAZAPINE15 M1 PO (17:39)
[2019-11-25] MEDS ORDERED: BUMETANIDE2 MG PO (17:43)
[2019-11-25] MEDS ORDERED: SPIRONOLACT25 MG PO (17:44)
[2019-11-25] MEDS ORDERED: AMIODARONE HCL200 MG PO (17:45)
[2019-11-25] MEDS ORDERED: FARXIGA5 MG PO (17:45)
[2019-11-25] MEDS ORDERED: SERTRALINE50 MG PO (17:46)
== END 2019-08-04 16:15 | DRG 177 ==
LOC: ED 10:31 → ED-I 16:05 → ED 16:18 → ICU 16:19 → ED-I 16:19 → MS2 16:32 → ICU 16:37
PROVIDERS: Emergency Medicine; Internal Medicine; ADMIT Internal Medicine; ATTEND Internal Medicine
PROC: 0T9B70Z Drainage of Bladder with Drainage Device, Via Natural or Artificial Opening (ICD-10-PCS; principal; 2019-07-23)
PROC: 30233N1 Transfusion of Nonautologous Red Blood Cells into Peripheral Vein, Percutaneous Approach (ICD-10-PCS; 2019-07-27)
PROC: 30233N1 Transfusion of Nonautologous Red Blood Cells into Peripheral Vein, Percutaneous Approach (ICD-10-PCS; 2019-07-27)
PROC: 30233N1 Transfusion of Nonautologous Red Blood Cells into Peripheral Vein, Percutaneous Approach (ICD-10-PCS; 2019-07-27)
PROC: 30233N1 Transfusion of Nonautologous Red Blood Cells into Peripheral Vein, Percutaneous Approach (ICD-10-PCS; 2019-07-29)
DX: U07.1 COVID-19 (principal); J12.89 Other viral pneumonia; S32.401A Unspecified fracture of right acetabulum, initial encounter for closed fracture; J96.21 Acute and chronic respiratory failure with hypoxia; J96.22 Acute and chronic respiratory failure with hypercapnia; S32.591A Other specified fracture of right pubis, initial encounter for closed fracture; I13.0 Hypertensive heart and chronic kidney disease with heart failure and stage 1 through stage 4 chronic kidney disease, or unspecified chronic kidney disease; I50.22 Chronic systolic (congestive) heart failure; D68.32 Hemorrhagic disorder due to extrinsic circulating anticoagulants; R04.2 Hemoptysis; N17.9 Acute kidney failure, unspecified; D62 Acute posthemorrhagic anemia; K92.1 Melena; R04.0 Epistaxis; T45.515A Adverse effect of anticoagulants, initial encounter; I25.5 Ischemic cardiomyopathy; I48.91 Unspecified atrial fibrillation; I25.10 Atherosclerotic heart disease of native coronary artery without angina pectoris; N18.3 Chronic kidney disease, stage 3 (moderate); D63.1 Anemia in chronic kidney disease; I70.201 Unspecified atherosclerosis of native arteries of extremities, right leg; F10.20 Alcohol dependence, uncomplicated; I25.2 Old myocardial infarction; W01.0XXA Fall on same level from slipping, tripping and stumbling without subsequent striking against object, initial encounter; Y92.009 Unspecified place in unspecified non-institutional (private) residence as the place of occurrence of the external cause; Z99.81 Dependence on supplemental oxygen; Z86.711 Personal history of pulmonary embolism; Z86.718 Personal history of other venous thrombosis and embolism; Z95.810 Presence of automatic (implantable) cardiac defibrillator; Z95.1 Presence of aortocoronary bypass graft; Z79.01 Long term (current) use of anticoagulants; Z66 Do not resuscitate
CPT/HCPCS: J0692; J1756; J2060; J3475; P9016; Q3014; Q9967; S0164

== ENCOUNTER 2019-09-01 14:43 | Emergency (ER) | payer OTHER, MEDICARE ==
[~2019-09-01 14:43] MED LIST changes: +LORTAB5 PO
[2019-09-01 17:23] LABS: HEMATOCRIT 31.5 % (39.0-50.0); HEMOGLOBIN 9.7 g/dl (14.0-18.0); IMMATURE GRANULOCYTES 0.3 % (0.0-5.0); MEAN CELL VOLUME 95.7 fL CALC (80.0-100.0); MEAN CORPUSCULAR HGB 29.5 pG CALC (26.0-32.0); MEAN CORPUSCULAR HGB CONC 30.8 g/dL CAL (32.0-36.0); NEUT# 4.9 thou/uL (1.82-7.42); RED BLOOD COUNT 3.29 mill/uL (4.70-6.10); RED CELL DISTRI WIDTH 15.5 % (11.5-15.5)
[2019-09-01 17:44] LABS: ALBUMIN 3.5 g/dL (3.2-5.0); ALKALINE PHOSPHATASE 118 u/l (38-126); ANION GAP 12 (6-22 (CALC)); BILIRUBIN, TOTAL 0.8 mg/dL (0.0-1.4); BUN 12 mg/dL (8-23); BUN/CREATININE RATIO 14 (12-20 (CALC)); CARBON DIOXIDE 29 mmol/l (22-30); CHLORIDE 99 mmol/l (95-108); CREATININE 0.8 mg/dL (0.7-1.3); GFR > 60 ML/MIN (>=60 (CALC)); GFR FOR AFR.AMER. > 60 ML/MIN (>=60 (CALC)); LIPASE 49 u/l (23-300); POTASSIUM 4.3 mmol/l (3.5-5.1); SGOT/AST 41 u/l (19-48); SODIUM 134 mmol/l (137-146); TOTAL PROTEIN 6.5 g/dL (6.3-8.2)
[2019-09-01 17:56] LABS: ACT PARTIAL THROMBO TIME 37.8 SECONDS (20.0-32.5); INTERNATIONAL NORMALIZED RATIO 1.3 RATIO (0.7-1.3); PROTHROMBIN TIME 13.7 SECONDS (9.0-12.5)
[2019-09-01] MEDS ORDERED: LASIX 40 MG TAB40 MG PO ×2 (18:32)
[2019-09-01] MEDS ORDERED: KEFLEX500 M1 PO ×2 (18:32)
[2019-09-01 18:49] VITALS: BP 142/97
--- NOTE | 2019-09-04 11:41 | NUR ---
Notified patient of Negative Covid swab results.
[2019-11-25] MEDS ORDERED: MIRTAZAPINE15 M1 PO (17:39)
[2019-11-25] MEDS ORDERED: BUMETANIDE2 MG PO (17:43)
[2019-11-25] MEDS ORDERED: SPIRONOLACT25 MG PO (17:44)
[2019-11-25] MEDS ORDERED: AMIODARONE HCL200 MG PO (17:45)
[2019-11-25] MEDS ORDERED: FARXIGA5 MG PO (17:45)
[2019-11-25] MEDS ORDERED: SERTRALINE50 MG PO (17:46)
== END 2019-09-01 19:15 | disposition home or self-care (01) | DRG 948 ==
LOC: ED 14:43
DX: R60.0 Localized edema (principal); L03.116 Cellulitis of left lower limb; L03.115 Cellulitis of right lower limb; D64.9 Anemia, unspecified; I10 Essential (primary) hypertension; I25.10 Atherosclerotic heart disease of native coronary artery without angina pectoris; I25.2 Old myocardial infarction; Z95.1 Presence of aortocoronary bypass graft; Z20.828 Contact with and (suspected) exposure to other viral communicable diseases

== ENCOUNTER 2020-01-27 12:08 | Observation (INO) | payer MEDICARE, OTHER ==
[~2020-01-27] VITALS: Ht 175.3 cm; Wt 71.7 kg
[~2020-01-27 12:08] MED LIST changes: +AMIODARONE HCL200 MG PO; +FARXIGA5 MG PO; +KEFLEX500 M1 PO; +LASIX 40 MG TAB40 MG PO; +MIRTAZAPINE15 M1 PO
--- NOTE | 2020-01-27 12:14 | NUR ---
PT TO ROOM 10 VIA WHEELCHAIR FOR BEDSIDE TRIAGE.
[2020-01-27 12:52] LABS: HEMATOCRIT 29.3 % (39.0-50.0); HEMOGLOBIN 9.2 g/dl (14.0-18.0); IMMATURE GRANULOCYTES 0.4 % (0.0-5.0); MEAN CELL VOLUME 95.1 fL CALC (80.0-100.0); MEAN CORPUSCULAR HGB 29.9 pG CALC (26.0-32.0); MEAN CORPUSCULAR HGB CONC 31.4 g/dL CAL (32.0-36.0); NEUT# 5.4 thou/uL (1.82-7.42); RED BLOOD COUNT 3.08 mill/uL (4.70-6.10); RED CELL DISTRI WIDTH 18.3 % (11.5-15.5)
[2020-01-27 13:05] LABS: ALBUMIN 4.3 g/dL (3.2-5.0); ALKALINE PHOSPHATASE 83 u/l (38-126); AMYLASE 59 u/l (30-110); ANION GAP 14 (6-22 (CALC)); BILIRUBIN, TOTAL 0.6 mg/dL (0.0-1.4); BUN 33 mg/dL (8-23); BUN/CREATININE RATIO 27 (12-20 (CALC)); CARBON DIOXIDE 27 mmol/l (22-30); CHLORIDE 100 mmol/l (95-108); CREATININE 1.2 mg/dL (0.7-1.3); GFR 60 ML/MIN (>=60 (CALC)); GFR FOR AFR.AMER. > 60 ML/MIN (>=60 (CALC)); LIPASE 130 u/l (23-300); POTASSIUM 4.1 mmol/l (3.5-5.1); SGOT/AST 41 u/l (19-48); SODIUM 137 mmol/l (137-146); TOTAL PROTEIN 7.3 g/dL (6.3-8.2)
[2020-01-27 13:14] LABS: INTERNATIONAL NORMALIZED RATIO 1.4 RATIO (0.7-1.3); PROTHROMBIN TIME 13.7 SECONDS (9.0-12.5)
--- NOTE | 2020-01-27 13:15 | NUR ---
MD AT BEDSIDE TO DISCUSS RESULTS AND POC.
[2020-01-27 13:41] LABS: URINE BILIRUBIN - DIPSTICK NEGATIVE (NEGATIVE); URINE BLOOD DIPSTICK NEGATIVE (NEGATIVE); URINE COLOR YELLOW; URINE GLUCOSE - DIPSTICK NEGATIVE (NEGATIVE); URINE KETONE NEGATIVE (NEGATIVE); URINE LEUK ESTERASE NEGATIVE (NEGATIVE); URINE NITRITE - DIPSTICK NEGATIVE (Negative); URINE PROTEIN - DIPSTICK NEGATIVE (NEG-TRACE); URINE UROBILINOGEN - DIPSTICK 0.2 E.U./dL (0.2)
--- NOTE | 2020-01-27 14:10 | NUR ---
ASSISTED TO SIDE OF STRETCHER TO VOID. RESPS EVEN AND UNLABORED ON ROOM AIR, VSS, MONITORS ATTACHED. DENIES NEEDS AT THIS TIME.
--- NOTE | 2020-01-27 16:00 | NUR ---
NURSE TO NURSE REPORT CALLED TO CRIS TILLEY.
--- NOTE | 2020-01-27 16:25 | NUR ---
PT ARRIVED TO THE FLOOR VIA WHEELCHAIR ACCOMPANIED BY ED STAFF. PT ALERT AND ORIENTED. ASSESSENT COMPLETED AND VS OBTAINED. RESPIRATIONS ARE SHALLOW ON RA. LUNGS SOUND DIMINISHED. PEDAL PULSES ARE WEAK. PT DENIES ANY PAIN OR DISCOMFORT AT THIS TIME. PT PROVIDED WITH BLANKET PER REQUEST. PT ORIENTED TO ROOM AND CALL READ SYSTEM. SAFETY PRECAUTIONS IN PLACE. WILL CONTINIUE TO MONITOR.
--- NOTE | 2020-01-27 16:25 | NUR ---
TO ROOM 269 VIA WHEELCHAIR, TELE MONITOR IN PLACE.
[2020-01-27 16:47] VITALS: BP 121/68
[2020-01-27 18:09] LABS: HEMATOCRIT 29.6 % (39.0-50.0); HEMOGLOBIN 9.3 g/dl (14.0-18.0)
[2020-01-27 19:00] VITALS: BP 115/67
--- NOTE | 2020-01-27 20:02 | NUR ---
PHYSICAL ASSESMENT COMPLETE. PT CURRENTLY DENIES PAIN OR DISCOMFORT. SCHEDULED MEDICATIONS AND PRN MEDICATION ADMINISTERED, SEE E-MAR. PT DENIES ANY NEEDS AT THIS TIME. PLAN OF CARE REVIEWED, PT DENIES QUESTIONS, VERBALIZES UNDERSTANDING. ITEMS WITHIN REACH, BED LOCKED IN LOW POSITION W/ BEDRAILS UP X2. CALL READ WITHIN REACH, AGREES TO CALL PRN.
[2020-01-28] VITALS (7 sets, daily range): BP systolic 74–123; BP diastolic 55–69
--- NOTE | 2020-01-28 00:02 | NUR ---
PT LAYING IN BED WITH EYES CLOSED, APPEARS TO BE SLEEPING, APPEARS COMFORTABLE AND IN NO DISTRESS. RESPIRATIONS REGULAR AND UNLABORED. ITEMS REMAIN WITHIN REACH, CALL READ REMAINS WITHIN REACH. BED REMAINS LOCKED AND IN LOW POSITION WITH BEDRAILS UP X2. WILL CONTINUE TO MONITOR.
[2020-01-28 01:02] LABS: HEMATOCRIT 28.7 % (39.0-50.0); HEMOGLOBIN 8.9 g/dl (14.0-18.0)
--- NOTE | 2020-01-28 04:02 | NUR ---
PT RESTING IN BED, NO SIGNS OF DISTRESS NOTED, RESP EVEN AND UNLABORED. PT VOICES NO NEEDS OR COMPLAINTS AT THIS TIME. CALL LIGHT IN REACH,CONTINUE TO MONITOR.
[2020-01-28 05:42] LABS: HEMATOCRIT 29.4 % (39.0-50.0); MEAN CELL VOLUME 97.4 fL CALC (80.0-100.0); MEAN CORPUSCULAR HGB 29.8 pG CALC (26.0-32.0); MEAN CORPUSCULAR HGB CONC 30.6 g/dL CAL (32.0-36.0); RED BLOOD COUNT 3.02 mill/uL (4.70-6.10); RED CELL DISTRI WIDTH 18.3 % (11.5-15.5)
[2020-01-28 06:02] LABS: ANION GAP 9 (6-22 (CALC)); BUN 30 mg/dL (8-23); BUN/CREATININE RATIO 26 (12-20 (CALC)); CARBON DIOXIDE 27 mmol/l (22-30); CHLORIDE 109 mmol/l (95-108); CREATININE 1.2 mg/dL (0.7-1.3); GFR 60 ML/MIN (>=60 (CALC)); GFR FOR AFR.AMER. > 60 ML/MIN (>=60 (CALC)); MAGNESIUM 1.9 mg/dL (1.6-2.3); POTASSIUM 4.7 mmol/l (3.5-5.1); SODIUM 141 mmol/l (137-146)
--- NOTE | 2020-01-28 07:15 | NUR ---
PATIENT SITTING UP IN BED ALERT AND ORIENTED AT THIS TIME. QS ASSESSMENT DONE SEE INTERVENTIONS. PATIENT HAS MULTIPLE BRUISING ON BOTH ARMS PATIENT STATES HE TAKES "BLOOD THINNERS" AND LUIS FALLING. THERE IS A RIGHT LOWER ARM SMALL ABRASION NOTED. ALL SAFETY MEASURE ARE INTACT. AT THIS TIME.
--- NOTE | 2020-01-28 07:21 | NUR ---
Patient is screened for PT intervention and he would benefit from PT consult if medical agrees
--- NOTE | 2020-01-28 09:17 | NUR ---
CALLED DR. ROA OFFICE AT [phone] SPOKE TO FIDEL. GAVE ROOM NUMBER AND CONSULTATION. SHE STATED SHE WILL LET THE DOCTOR KNOW.
--- NOTE | 2020-01-28 10:20 | NUR ---
ANESTHESIA AT BEDSIDE.
--- NOTE | 2020-01-28 10:53 | NUR ---
RIDES SUPERVISOR REPORTED THAT PATIENT'S BP VIA MACHINE WAS 74/55. PATIENT'S BP RECHECKED USING MANUAL BP CUFF AND READING IS 90/62. PATIENT STATES HE FEELS FINE AND IS SHOWING NO SIGNS OF BEING DIZZY OR LETHARGIC. PATIENT ENCOURAGE TO DRINK WATER.
--- NOTE | 2020-01-28 11:55 | NUR ---
PATIENT SITTING UP IN BED WATCHING TV AT THIS TIME. DENIES ANY PAIN AND REMINDED PATIENT THAT WE NEED A STOOL SAMPLE AND HE VERBALIZES UNDERSTANDING OF NEED. PATIENT DENIES ANY OTHER NEEDS.
--- NOTE | 2020-01-28 12:16 | NUR ---
NEHEMIAS SANTILLAN FOR AT BEDSIDE DISCUSSING POC.
--- NOTE | 2020-01-28 12:43 | NUR ---
OBTAINED STOOL SAMPLE AT THIS TIME AND SENT TO LAB.
--- NOTE | 2020-01-28 16:07 | NUR ---
PATIENT SITTING UP AT BEDSIDE. PATIENT STATED THAT HE PICKED A SCAB ON HIS RIGHT KNEE AND NEEDED A BANDAIDE. TELFA PAD APPLIED TO SMALL AREA. PATIENT DENIES ANY PAIN AT THIS TIME CALL LIGHT NEAR. NO OTHER NEEDS VOICED AT THIS TIME. ALL SAFETY MEASURES ARE IN PLACE CALL LIGHT NEAR.
--- NOTE | 2020-01-28 20:02 | NUR ---
REPORT RECEIVED FROM NURSE. PT RESTING IN BED SUPINE; ASSESSMENT AND VITALS COMPLETE ALERT AND ORIENTED. PT DENIES PAIN. RESPIRATIONS EVEN AND UNLABORED ON ROOM AIR AT REST; SOB UPON EXERTION. TELEMENTRY IN PLACE, PACED @ 68. PT ENCOURAGED TO VERBALIZE CONCERNS. STATES UNDERSTANDING. SAFETY MEASURES IN PLACE. CALL LIGHT WITHIN REACH.
[2020-01-29 00:09] VITALS: BP 112/64
[2020-01-29 04:06] VITALS: BP 110/64
[2020-01-29 05:29] LABS: HEMATOCRIT 30.1 % (39.0-50.0); HEMOGLOBIN 9.2 g/dl (14.0-18.0); MEAN CELL VOLUME 98.7 fL CALC (80.0-100.0); MEAN CORPUSCULAR HGB 30.2 pG CALC (26.0-32.0); MEAN CORPUSCULAR HGB CONC 30.6 g/dL CAL (32.0-36.0); RED BLOOD COUNT 3.05 mill/uL (4.70-6.10); RED CELL DISTRI WIDTH 18.1 % (11.5-15.5)
[2020-01-29 05:52] LABS: ANION GAP 11 (6-22 (CALC)); BUN 22 mg/dL (8-23); BUN/CREATININE RATIO 20 (12-20 (CALC)); CARBON DIOXIDE 25 mmol/l (22-30); CHLORIDE 110 mmol/l (95-108); CREATININE 1.1 mg/dL (0.7-1.3); GFR > 60 ML/MIN (>=60 (CALC)); GFR FOR AFR.AMER. > 60 ML/MIN (>=60 (CALC)); MAGNESIUM 1.7 mg/dL (1.6-2.3); POTASSIUM 4.5 mmol/l (3.5-5.1); SODIUM 142 mmol/l (137-146)
[2020-01-29 07:15] VITALS: BP 127/79
--- NOTE | 2020-01-29 07:15 | NUR ---
PATIENT IN BED AT THIS TIME ALERT AND ORIENTED DENIES ANY NEEDS AT THIS TIME. NURSE ASSESSMENT DONE SEE INTERVENTIONS. ALL SAFETY MEASURES ARE IN PLACE.
--- NOTE | 2020-01-29 08:05 | NUR ---
PHYSICIAN (DR. ARMAS) AND METALIZER IN TO VISIT PATIENT AT THIS TIME. PHYSICIAN IS LOOKING AT D/C POSSIBLE TODAY
[2020-01-29 10:45] VITALS: BP 96/59
--- NOTE | 2020-01-29 12:04 | NUR ---
PATIENT SITTING UP IN BED AT THIS TIME. PATIENT GIVEN VENIFUR (IRON) IV AND IS NOW INFUSED. PATIENT VOICES NO CONCERNS OR COMPLAINTS AT THIS TIME AND ALL SAFETY MEASURES ARE IN PLACE AND CALL LIGHT IS WITHIN REACH OF PATIENT.
--- NOTE | 2020-01-29 14:09 | NUR ---
PATEINT DISCHARGED AT THIS TIME. PATIENT VERBALIZES UNDERSTANDING OF DISCHARGED INFORMATION. PATIENT TAKEN DOWNSTAIRS VIA WHEELCHAIR. ALL PERSONAL BELONGINGS TAKEN BY PATIENT.
== END 2020-01-29 14:13 | disposition home or self-care (01) ==
LOC: ED 12:08 → ED-I 13:20 → ED 13:31 → MS2 13:32
PROVIDERS: Nurse Practitioner; ADMIT Internal Medicine; ATTEND Internal Medicine
DX: K92.1 Melena (principal); D62 Acute posthemorrhagic anemia; I95.9 Hypotension, unspecified; I48.20 Chronic atrial fibrillation, unspecified; I12.9 Hypertensive chronic kidney disease with stage 1 through stage 4 chronic kidney disease, or unspecified chronic kidney disease; N18.30 Chronic kidney disease, stage 3 unspecified; D63.1 Anemia in chronic kidney disease; I25.10 Atherosclerotic heart disease of native coronary artery without angina pectoris; J44.9 Chronic obstructive pulmonary disease, unspecified; K21.9 Gastro-esophageal reflux disease without esophagitis; I70.201 Unspecified atherosclerosis of native arteries of extremities, right leg; E78.5 Hyperlipidemia, unspecified; K70.30 Alcoholic cirrhosis of liver without ascites; I25.5 Ischemic cardiomyopathy; I25.2 Old myocardial infarction; Z95.1 Presence of aortocoronary bypass graft; Z79.01 Long term (current) use of anticoagulants; Z86.718 Personal history of other venous thrombosis and embolism; Z86.711 Personal history of pulmonary embolism; Z80.0 Family history of malignant neoplasm of digestive organs; Z20.828 Contact with and (suspected) exposure to other viral communicable diseases; Z95.810 Presence of automatic (implantable) cardiac defibrillator; Z86.19 Personal history of other infectious and parasitic diseases; N18.4 Chronic kidney disease, stage 4 (severe); D50.0 Iron deficiency anemia secondary to blood loss (chronic)
CPT/HCPCS: G0378; G0424; J1756; S0164

== ENCOUNTER 2021-11-28 14:27 | Observation (INO) | payer MEDICARE ==
[2021-11-28] VITALS (22 sets, daily range): BP systolic 87–132; BP diastolic 38–80
[~2021-11-28] VITALS: Ht 175.3 cm; Wt 75.0 kg
[~2021-11-28 14:27] MED LIST changes: +ACULAR OS; +HYDROCO/APAP1 TA9 PO; +OFLOXACIN0.3 % OS; +PRED FORTE1 % OS; +SERTRALINE HCL100 MG PO; +ZOLOFT100 MG PO
[2021-11-28 15:01] LABS: HEMATOCRIT 36.7 % (39.0-50.0); HEMOGLOBIN 11.3 g/dl (14.0-18.0); IMMATURE GRANULOCYTES 0.7 % (0.0-5.0); MEAN CELL VOLUME 98.9 fL CALC (80.0-100.0); MEAN CORPUSCULAR HGB 30.5 pG CALC (26.0-32.0); MEAN CORPUSCULAR HGB CONC 30.8 g/dL CAL (32.0-36.0); NEUT# 7.48 thou/uL (1.82-7.42); RED BLOOD COUNT 3.71 mill/uL (4.70-6.10); RED CELL DISTRI WIDTH 15.1 % (11.5-15.5)
[2021-11-28 15:11] LABS: ALBUMIN 3.7 g/dL (3.2-5.0); ALKALINE PHOSPHATASE 174 u/l (38-126); ANION GAP 17 (6-22 (CALC)); BUN 12 mg/dL (8-23); BUN/CREATININE RATIO 12 (12-20 (CALC)); CARBON DIOXIDE 21 mmol/l (22-30); CHLORIDE 105 mmol/l (95-108); GFR FOR AFR.AMER. > 60 ML/MIN (>=60 (CALC)); GFR OTHER RACES > 60 ML/MIN (>=60 (CALC)); POTASSIUM 3.4 mmol/l (3.5-5.1); SGOT/AST 34 u/l (19-48); SODIUM 140 mmol/l (137-146); TOTAL PROTEIN 7.3 g/dL (6.3-8.2)
[2021-11-28 17:32] LABS: URINE BILIRUBIN - DIPSTICK NEGATIVE (NEGATIVE); URINE BLOOD DIPSTICK NEGATIVE (NEGATIVE); URINE COLOR YELLOW; URINE GLUCOSE - DIPSTICK 250 mg/dL (NEGATIVE); URINE KETONE NEGATIVE (NEGATIVE); URINE LEUK ESTERASE NEGATIVE (NEGATIVE); URINE PROTEIN - DIPSTICK NEGATIVE (NEG-TRACE); URINE UROBILINOGEN - DIPSTICK 0.2 E.U./dL (0.2)
[2021-11-28 17:40] LABS: URINE NITRITE - DIPSTICK NEGATIVE (Negative)
[2021-11-29 01:07] VITALS: BP 126/67
[2021-11-29 04:07] VITALS: BP 122/71
[2021-11-29 05:28] LABS: HEMATOCRIT 33.9 % (39.0-50.0); HEMOGLOBIN 10.8 g/dl (14.0-18.0); MEAN CELL VOLUME 95.8 fL CALC (80.0-100.0); MEAN CORPUSCULAR HGB 30.5 pG CALC (26.0-32.0); MEAN CORPUSCULAR HGB CONC 31.9 g/dL CAL (32.0-36.0); RED BLOOD COUNT 3.54 mill/uL (4.70-6.10)
[2021-11-29 05:45] LABS: ANION GAP 14 (6-22 (CALC)); BUN 14 mg/dL (8-23); BUN/CREATININE RATIO 15 (12-20 (CALC)); CARBON DIOXIDE 25 mmol/l (22-30); CHLORIDE 104 mmol/l (95-108); CREATININE 0.9 mg/dL (0.7-1.3); GFR FOR AFR.AMER. > 60 ML/MIN (>=60 (CALC)); GFR OTHER RACES > 60 ML/MIN (>=60 (CALC)); MAGNESIUM 1.5 mg/dL (1.6-2.3); POTASSIUM 3.3 mmol/l (3.5-5.1); SODIUM 139 mmol/l (137-146)
[2021-11-29 06:50] VITALS: BP 125/74
[2021-11-29 10:41] VITALS: BP 116/73
[2021-11-29 15:13] VITALS: BP 121/78
[2021-11-29 18:33] VITALS: BP 125/72
[2021-11-30] VITALS (7 sets, daily range): BP systolic 118–127; BP diastolic 72–102
[2021-11-30 06:01] LABS: HEMATOCRIT 33.5 % (39.0-50.0); HEMOGLOBIN 10.8 g/dl (14.0-18.0); IMMATURE GRANULOCYTES 0.4 % (0.0-5.0); MEAN CELL VOLUME 96.3 fL CALC (80.0-100.0); MEAN CORPUSCULAR HGB CONC 32.2 g/dL CAL (32.0-36.0); NEUT# 7.55 thou/uL (1.82-7.42); RED BLOOD COUNT 3.48 mill/uL (4.70-6.10); RED CELL DISTRI WIDTH 15.1 % (11.5-15.5)
[2021-11-30 06:17] LABS: ALBUMIN 3.2 g/dL (3.2-5.0); ALKALINE PHOSPHATASE 167 u/l (38-126); ANION GAP 11 (6-22 (CALC)); BILIRUBIN, TOTAL 1.1 mg/dL (0.0-1.4); BUN 13 mg/dL (8-23); BUN/CREATININE RATIO 16 (12-20 (CALC)); CARBON DIOXIDE 24 mmol/l (22-30); CHLORIDE 105 mmol/l (95-108); CREATININE 0.8 mg/dL (0.7-1.3); GFR FOR AFR.AMER. > 60 ML/MIN (>=60 (CALC)); GFR OTHER RACES > 60 ML/MIN (>=60 (CALC)); POTASSIUM 3.7 mmol/l (3.5-5.1); SGOT/AST 20 u/l (19-48); SODIUM 136 mmol/l (137-146); TOTAL PROTEIN 6.6 g/dL (6.3-8.2)
[2021-11-30 06:36] LABS: MAGNESIUM 1.9 mg/dL (1.6-2.3)
[2021-11-30] MEDS ORDERED: BACITRACIN3.5 GM TOP (13:35)
== END 2021-11-30 16:20 | disposition home health service (06) ==
LOC: ED 14:27 → ED-I 15:44 → ED 15:44 → ED-I 17:50 → ED 18:18 → MS2 18:19
PROVIDERS: Family Medicine; Nurse Practitioner; ADMIT Internal Medicine; ATTEND Internal Medicine
PROC: 0HQ1XZZ Repair Face Skin, External Approach (ICD-10-PCS; principal; 2021-11-28)
DX: E86.0 Dehydration (principal); R53.1 Weakness; S01.111A Laceration without foreign body of right eyelid and periocular area, initial encounter; S41.112A Laceration without foreign body of left upper arm, initial encounter; S41.012A Laceration without foreign body of left shoulder, initial encounter; S51.811A Laceration without foreign body of right forearm, initial encounter; S80.812A Abrasion, left lower leg, initial encounter; S80.811A Abrasion, right lower leg, initial encounter; S51.812A Laceration without foreign body of left forearm, initial encounter; M25.431 Effusion, right wrist; E87.6 Hypokalemia; E83.42 Hypomagnesemia; I13.0 Hypertensive heart and chronic kidney disease with heart failure and stage 1 through stage 4 chronic kidney disease, or unspecified chronic kidney disease; N18.30 Chronic kidney disease, stage 3 unspecified; I50.9 Heart failure, unspecified; N18.9 Chronic kidney disease, unspecified; D63.1 Anemia in chronic kidney disease; I95.89 Other hypotension; I25.10 Atherosclerotic heart disease of native coronary artery without angina pectoris; I25.5 Ischemic cardiomyopathy; R91.8 Other nonspecific abnormal finding of lung field; K21.9 Gastro-esophageal reflux disease without esophagitis; I48.0 Paroxysmal atrial fibrillation; J44.9 Chronic obstructive pulmonary disease, unspecified; I70.201 Unspecified atherosclerosis of native arteries of extremities, right leg; L89.619 Pressure ulcer of right heel, unspecified stage; E78.5 Hyperlipidemia, unspecified; J84.10 Pulmonary fibrosis, unspecified; F10.10 Alcohol abuse, uncomplicated; K70.30 Alcoholic cirrhosis of liver without ascites; R49.0 Dysphonia; I25.2 Old myocardial infarction; W19.XXXA Unspecified fall, initial encounter; Z95.1 Presence of aortocoronary bypass graft; Z91.81 History of falling; Z99.81 Dependence on supplemental oxygen; Z95.820 Peripheral vascular angioplasty status with implants and grafts; Z86.718 Personal history of other venous thrombosis and embolism; Z79.01 Long term (current) use of anticoagulants; Z86.711 Personal history of pulmonary embolism; Z86.16 Personal history of COVID-19; Z20.822 Contact with and (suspected) exposure to COVID-19; Z95.810 Presence of automatic (implantable) cardiac defibrillator
CPT/HCPCS: J1650; J3475

== ENCOUNTER 2021-12-03 16:44 | Inpatient (IN) | payer MEDICARE ==
[~2021-12-03] VITALS: Ht 175.3 cm; Wt 66.2 kg
[2021-12-03] VITALS (23 sets, daily range): BP systolic 109–140; BP diastolic 65–95
[~2021-12-03 16:44] MED LIST changes: +BACITRACIN3.5 GM TOP
[2021-12-03 17:27] LABS: HEMATOCRIT 34.2 % (39.0-50.0); HEMOGLOBIN 10.9 g/dl (14.0-18.0); IMMATURE GRANULOCYTES 0.6 % (0.0-5.0); MEAN CORPUSCULAR HGB 30.3 pG CALC (26.0-32.0); MEAN CORPUSCULAR HGB CONC 31.9 g/dL CAL (32.0-36.0); NEUT# 10.13 thou/uL (1.82-7.42); RED BLOOD COUNT 3.6 mill/uL (4.70-6.10); RED CELL DISTRI WIDTH 15.3 % (11.5-15.5)
[2021-12-03 17:54] LABS: ALBUMIN 3.6 g/dL (3.2-5.0); ALKALINE PHOSPHATASE 170 u/l (38-126); BUN 25 mg/dL (8-23); BUN/CREATININE RATIO 25 (12-20 (CALC)); CHLORIDE 115 mmol/l (95-108); GFR FOR AFR.AMER. > 60 ML/MIN (>=60 (CALC)); GFR OTHER RACES > 60 ML/MIN (>=60 (CALC)); TOTAL PROTEIN 7.2 g/dL (6.3-8.2)
[2021-12-03 18:03] LABS: POTASSIUM 3.9 mmol/l (3.5-5.1)
[2021-12-03 18:04] LABS: ANION GAP 19 (6-22 (CALC)); BILIRUBIN, TOTAL 1.7 mg/dL (0.0-1.4); CARBON DIOXIDE 17 mmol/l (22-30); SGOT/AST 62 u/l (19-48); SODIUM 147 mmol/l (137-146)
[2021-12-03 19:21] LABS: URINE BLOOD DIPSTICK LARGE (NEGATIVE); URINE GLUCOSE - DIPSTICK NEGATIVE (NEGATIVE); URINE KETONE 15 mg/dL (NEGATIVE); URINE LEUK ESTERASE NEGATIVE (NEGATIVE); URINE PROTEIN - DIPSTICK TRACE mg/dL (NEG-TRACE); URINE SPECIFIC GRAVITY 1.025
[2021-12-03 19:28] LABS: URINE BILIRUBIN - DIPSTICK MODERATE (NEGATIVE); URINE COLOR DK. YELLOW; URINE NITRITE - DIPSTICK NEGATIVE (Negative)
[2021-12-03 19:31] LABS: URINE WBC 0-2 WBC/hpf (0-5)
[2021-12-04] VITALS: BP 121/72
[2021-12-04 04:28] VITALS: BP 119/74
[2021-12-04 06:13] VITALS: BP 130/78
[2021-12-04 07:25] LABS: HEMATOCRIT 34.9 % (39.0-50.0); HEMOGLOBIN 10.9 g/dl (14.0-18.0); IMMATURE GRANULOCYTES 0.4 % (0.0-5.0); MEAN CELL VOLUME 96.7 fL CALC (80.0-100.0); MEAN CORPUSCULAR HGB 30.2 pG CALC (26.0-32.0); MEAN CORPUSCULAR HGB CONC 31.2 g/dL CAL (32.0-36.0); NEUT# 7.31 thou/uL (1.82-7.42); RED BLOOD COUNT 3.61 mill/uL (4.70-6.10); RED CELL DISTRI WIDTH 15.6 % (11.5-15.5)
[2021-12-04 08:04] LABS: ANION GAP 13 (6-22 (CALC)); BUN 26 mg/dL (8-23); BUN/CREATININE RATIO 28 (12-20 (CALC)); CARBON DIOXIDE 22 mmol/l (22-30); CHLORIDE 118 mmol/l (95-108); CREATININE 0.9 mg/dL (0.7-1.3); GFR FOR AFR.AMER. > 60 ML/MIN (>=60 (CALC)); GFR OTHER RACES > 60 ML/MIN (>=60 (CALC)); POTASSIUM 3.6 mmol/l (3.5-5.1); SODIUM 149 mmol/l (137-146)
[2021-12-04 10:29] VITALS: BP 104/69
[2021-12-04 14:35] VITALS: BP 108/72
[2021-12-05 05:25] LABS: HEMATOCRIT 35.3 % (39.0-50.0); HEMOGLOBIN 11.1 g/dl (14.0-18.0); IMMATURE GRANULOCYTES 0.5 % (0.0-5.0); MEAN CELL VOLUME 96.4 fL CALC (80.0-100.0); MEAN CORPUSCULAR HGB 30.3 pG CALC (26.0-32.0); MEAN CORPUSCULAR HGB CONC 31.4 g/dL CAL (32.0-36.0); NEUT# 6.5 thou/uL (1.82-7.42); RED BLOOD COUNT 3.66 mill/uL (4.70-6.10); RED CELL DISTRI WIDTH 15.4 % (11.5-15.5)
[2021-12-05 05:43] LABS: BUN 23 mg/dL (8-23); BUN/CREATININE RATIO 24 (12-20 (CALC)); CARBON DIOXIDE 25 mmol/l (22-30); CHLORIDE 106 mmol/l (95-108); CREATININE 0.9 mg/dL (0.7-1.3); GFR FOR AFR.AMER. > 60 ML/MIN (>=60 (CALC)); GFR OTHER RACES > 60 ML/MIN (>=60 (CALC)); POTASSIUM 3.4 mmol/l (3.5-5.1)
[2021-12-05 05:47] LABS: ANION GAP 12 (6-22 (CALC)); SODIUM 140 mmol/l (137-146)
[2021-12-05 07:14] VITALS: BP 128/80
[2021-12-05 07:39] VITALS: BP 117/75
[2021-12-05 11:33] VITALS: BP 96/55
[2021-12-05 15:22] VITALS: BP 109/72
[2021-12-05 19:20] VITALS: BP 94/56
[2021-12-06] VITALS (7 sets, daily range): BP systolic 90–123; BP diastolic 57–80
[2021-12-06 11:18] LABS: ANION GAP 11 (6-22 (CALC)); BUN 22 mg/dL (8-23); BUN/CREATININE RATIO 22 (12-20 (CALC)); CARBON DIOXIDE 24 mmol/l (22-30); CHLORIDE 107 mmol/l (95-108); GFR FOR AFR.AMER. > 60 ML/MIN (>=60 (CALC)); GFR OTHER RACES > 60 ML/MIN (>=60 (CALC)); POTASSIUM 3.4 mmol/l (3.5-5.1); SODIUM 139 mmol/l (137-146)
[2021-12-07] VITALS (7 sets, daily range): BP systolic 90–126; BP diastolic 61–76
[2021-12-07] MEDS ORDERED: HYDROCO/APAP1 TA9 PO (16:12)
[2021-12-07] MEDS ORDERED: VIBRAMYCIN100 M2 PO (16:13)
[2021-12-08 00:02] VITALS: BP 118/79
[2021-12-08 03:44] VITALS: BP 104/64
[2021-12-08 07:44] VITALS: BP 126/82
[2021-12-08 10:32] VITALS: BP 122/76
[2021-12-08 15:20] VITALS: BP 128/72
[2021-12-08 19:17] VITALS: BP 119/75
[2021-12-09 00:14] VITALS: BP 96/66
[2021-12-09 04:18] VITALS: BP 122/79
[2021-12-09 07:19] VITALS: BP 120/72
[2021-12-09 09:07] VITALS: BP 100/61
[2021-12-09 11:39] VITALS: BP 124/75
== END 2021-12-09 14:12 | disposition home health service (06) | DRG 194 ==
LOC: ED 16:44 → ED-I 17:53 → ED 21:32 → MS2 21:33
PROVIDERS: Family Medicine; Internal Medicine; ADMIT Internal Medicine; ATTEND Internal Medicine
DX: J18.9 Pneumonia, unspecified organism (principal); J44.0 Chronic obstructive pulmonary disease with (acute) lower respiratory infection; J96.10 Chronic respiratory failure, unspecified whether with hypoxia or hypercapnia; I13.0 Hypertensive heart and chronic kidney disease with heart failure and stage 1 through stage 4 chronic kidney disease, or unspecified chronic kidney disease; F10.232 Alcohol dependence with withdrawal with perceptual disturbance; I50.22 Chronic systolic (congestive) heart failure; E11.22 Type 2 diabetes mellitus with diabetic chronic kidney disease; N18.30 Chronic kidney disease, stage 3 unspecified; I25.10 Atherosclerotic heart disease of native coronary artery without angina pectoris; I25.5 Ischemic cardiomyopathy; K21.9 Gastro-esophageal reflux disease without esophagitis; F32.A Depression, unspecified; I48.0 Paroxysmal atrial fibrillation; D63.1 Anemia in chronic kidney disease; J84.10 Pulmonary fibrosis, unspecified; I70.201 Unspecified atherosclerosis of native arteries of extremities, right leg; K70.30 Alcoholic cirrhosis of liver without ascites; E78.5 Hyperlipidemia, unspecified; T14.8XXA Other injury of unspecified body region, initial encounter; I95.9 Hypotension, unspecified; E83.42 Hypomagnesemia; E87.6 Hypokalemia; R49.0 Dysphonia; R53.1 Weakness; I25.2 Old myocardial infarction; S01.111D Laceration without foreign body of right eyelid and periocular area, subsequent encounter; W19.XXXD Unspecified fall, subsequent encounter; Z91.81 History of falling; Z95.810 Presence of automatic (implantable) cardiac defibrillator; Z86.718 Personal history of other venous thrombosis and embolism; Z79.01 Long term (current) use of anticoagulants; Z60.2 Problems related to living alone; Z86.711 Personal history of pulmonary embolism; Z95.1 Presence of aortocoronary bypass graft; Z99.81 Dependence on supplemental oxygen; Z86.16 Personal history of COVID-19; Z20.822 Contact with and (suspected) exposure to COVID-19
CPT/HCPCS: G0378; J1650; J2060; Q9967

== ENCOUNTER 2022-09-06 09:54 | Emergency (ER) | payer MEDICARE ==
[~2022-09-06] VITALS: Ht 175.3 cm; Wt 69.9 kg
[2022-09-06] VITALS (13 sets, daily range): BP systolic 102–128; BP diastolic 59–72
[~2022-09-06 09:54] MED LIST changes: +ALDACTONE25 MG PO; -AMIODARONE HCL200 MG PO; +AMIODARONE HYD200 MG PO; +VIBRAMYCIN100 M2 PO
[2022-09-06 10:36] LABS: BASO% 0.6 % (0-3); HEMATOCRIT 31.7 % (39.0-50.0); HEMOGLOBIN 10.1 g/dl (14.0-18.0); IMMATURE GRANULOCYTES 0.6 % (0.0-5.0); LYMPH% 3.9 % (15-41); MEAN CELL VOLUME 108.6 fL CALC (80.0-100.0); MEAN CORPUSCULAR HGB 34.6 pG CALC (26.0-32.0); MEAN CORPUSCULAR HGB CONC 31.9 g/dL CAL (32.0-36.0); MONO% 8.1 % (2-13); NEUT# 7.49 thou/uL (1.82-7.42); NEUT% 86.8 % (42-76); RED BLOOD COUNT 2.92 mill/uL (4.70-6.10); RED CELL DISTRI WIDTH 15.8 % (11.5-15.5)
[2022-09-06 11:07] LABS: ALKALINE PHOSPHATASE 90 u/l (38-126); ANION GAP 19 (6-22 (CALC)); BILIRUBIN, TOTAL 1.5 mg/dL (0.2-1.3); BUN 17 mg/dL (8-23); BUN/CREATININE RATIO 13 (12-20 (CALC)); CHLORIDE 100 mmol/l (95-108); CREATININE 1.3 mg/dL (0.7-1.3); GFR FOR AFR.AMER. > 60 ML/MIN (>=60 (CALC)); GFR OTHER RACES 55 ML/MIN (>=60 (CALC)); POTASSIUM 3.7 mmol/l (3.5-5.1); SODIUM 135 mmol/l (137-146); TOTAL PROTEIN 6.8 g/dL (6.3-8.2)
[2022-09-06 11:09] LABS: SGOT/AST 83 u/l (19-48)
[2022-09-06 11:11] LABS: CARBON DIOXIDE 20 mmol/l (22-30)
[2022-09-06] MEDS ORDERED: HYDROCO/APAP1 TA9 PO (13:32)
[2022-09-06] MEDS ORDERED: HYDROCO/APAP1 T10 PO ×2 (13:34→13:35)
== END 2022-09-06 15:05 | disposition home or self-care (01) ==
LOC: ED 09:54
PROVIDERS: Family Medicine
PROC: 2W3AX1Z Immobilization of Right Upper Arm using Splint (ICD-10-PCS; principal; 2022-09-06)
DX: S42.291A Other displaced fracture of upper end of right humerus, initial encounter for closed fracture (principal); I73.9 Peripheral vascular disease, unspecified; I10 Essential (primary) hypertension; I25.10 Atherosclerotic heart disease of native coronary artery without angina pectoris; I25.2 Old myocardial infarction; W18.39XA Other fall on same level, initial encounter; Y92.009 Unspecified place in unspecified non-institutional (private) residence as the place of occurrence of the external cause; Z79.02 Long term (current) use of antithrombotics/antiplatelets; Z95.0 Presence of cardiac pacemaker; Z95.1 Presence of aortocoronary bypass graft; Z79.82 Long term (current) use of aspirin

== ENCOUNTER 2022-09-07 17:13 | Inpatient (IN) | payer MEDICARE ==
[~2022-09-07] VITALS: Ht 175.3 cm; Wt 70.6 kg
[~2022-09-07 17:13] MED LIST changes: +HYDROCO/APAP1 T10 PO
[2022-09-07 18:19] LABS: BASO% 0.5 % (0-3); HEMATOCRIT 31.3 % (39.0-50.0); IMMATURE GRANULOCYTES 0.5 % (0.0-5.0); LYMPH% 6.4 % (15-41); MEAN CELL VOLUME 109.4 fL CALC (80.0-100.0); MEAN CORPUSCULAR HGB CONC 31.9 g/dL CAL (32.0-36.0); MONO% 10.6 % (2-13); NEUT# 8.95 thou/uL (1.82-7.42); RED BLOOD COUNT 2.86 mill/uL (4.70-6.10); RED CELL DISTRI WIDTH 16.1 % (11.5-15.5)
[2022-09-07 18:20] VITALS: BP 110/60
--- NOTE | 2022-09-07 18:27 | NUR ---
RECEIVE DIRECT ADMISSION FROM DR. PACHECO OFFICE. PT FALL AT HOME. DX. R+SHOULDER FX. PT ALERT AND ORIENTED X3. TELE MONITOR IN PLACE. IV SIDE L+HAND 22G. PT IS EDUCATED ABOUD ADMISSION, MEDICATIONS, FALL PREVENTIONS AND NURSING CARE PLAN. PT REFER UNDERSTAND. SAFETY AND FALL PRECAUTIONS IN PLACE. CALL LIGHT WITHIN IN REACH.
[2022-09-07 18:34] LABS: ALBUMIN 4.1 g/dL (3.2-5.0); BILIRUBIN, TOTAL 1.5 mg/dL (0.2-1.3); POTASSIUM 4.1 mmol/l (3.5-5.1); TOTAL PROTEIN 7.1 g/dL (6.3-8.2)
[2022-09-07 18:41] LABS: CREATININE 2.5 mg/dL (0.7-1.3)
[2022-09-07 19:00] VITALS: BP 111/62
[2022-09-07 19:46] VITALS: BP 111/62
--- NOTE | 2022-09-07 20:30 | NUR ---
PATIENT ALERT AND ORIENTED X3. VSS, NO DISTRESS NOTED. RIGHT ARM IN SLING D/T SHOULDER FRACTURE; LACERATION NOTED. PATIENT HAS BRUISING ALL OVER BODY, STATES BRUISING IS FROM BLOOD THINNER. BLEEDING NOTED FROM BACK OF RIGHT SHOULDER ON PILLOW, UNABLE TO IDENTIFY AREA; ABD PAD PLACED, WILL MONITOR. PATIENT C/O PAIN 8/10, NO FURTHER CONCERNS EXPRESSED AT THIS TIME. CALL LIGHT WITHIN REACH, BED ALARM ACTIVE.
[2022-09-08] VITALS (8 sets, daily range): BP systolic 108–121; BP diastolic 25–63
--- NOTE | 2022-09-08 00:39 | NUR ---
PATIENT AWAKE WATCHING TV. DENIES PAIN. NO DISTRESS NOTED AT THIS TIME. CALL LIGHT WITHIN REACH.
[2022-09-08 06:33] LABS: HEMATOCRIT 28.8 % (39.0-50.0); HEMOGLOBIN 9.3 g/dl (14.0-18.0); MEAN CELL VOLUME 109.1 fL CALC (80.0-100.0); MEAN CORPUSCULAR HGB 35.2 pG CALC (26.0-32.0); MEAN CORPUSCULAR HGB CONC 32.3 g/dL CAL (32.0-36.0); RED BLOOD COUNT 2.64 mill/uL (4.70-6.10); RED CELL DISTRI WIDTH 15.7 % (11.5-15.5)
[2022-09-08 07:02] LABS: ALBUMIN 3.8 g/dL (3.2-5.0); BILIRUBIN, TOTAL 1.3 mg/dL (0.2-1.3); CREATININE 2.2 mg/dL (0.7-1.3); POTASSIUM 4.3 mmol/l (3.5-5.1); TOTAL PROTEIN 6.7 g/dL (6.3-8.2)
[2022-09-08 07:07] LABS: MAGNESIUM 1.6 mg/dL (1.6-2.3)
--- NOTE | 2022-09-08 08:14 | NUR ---
PERFORMED BEDISDE REPORT WITH NIGHTSHIFT NURSE. PT NOTED LAYING SEMI FOWLERS IN BED. PT ON ROOM AIR. PT IS RESTING COMFORTABLY AT THIS TIME. PT HAS BRUSING NOTED ON RT SHOULDER AND THROUGHOUT BODY. CLOSED LACERATION TOWARDS RT ARMPIT AREA. PT HAS ABD PADS AND DISPOSABLE CARA UNDERNEATH RT SHOULDER WITH MILD SEEPING OF BLOOD COMING FROM BACK ON RT SHOULDER BLADE. NIGHTSHIFT NURSE REPORT PT HAS HEMATOMA ON BACK OF SHOULDER WITH PIN PRICK AREA WEEPING. PT SHOWS NO S/S OF PAIN OR DISTRESS AT THIS TIME. CALL LIGHT WITHIN REACH AND SAFETY PRECAUTIONS IN PLACE.
--- NOTE | 2022-09-08 12:00 | NUR ---
PT SITTING UP ON SIDE OF BED EATING LUNCH. PT DENIES ANY PAIN AT THIS TIME. CALL LIGHT WITHIN REACH AND SAFETY PRECAUTIONS IN PLACE.
[2022-09-08 12:57] LABS: URINE BLOOD DIPSTICK SMALL (NEGATIVE); URINE CLARITY SL CLOUDY; URINE COLOR YELLOW; URINE GLUCOSE - DIPSTICK NEGATIVE (NEGATIVE); URINE KETONE NEGATIVE (NEGATIVE); URINE LEUK ESTERASE SMALL (Negative); URINE NITRITE - DIPSTICK NEGATIVE (Negative); URINE PH 5.5 (4.5-8.0); URINE PROTEIN - DIPSTICK NEGATIVE (NEG-TRACE); URINE UROBILINOGEN - DIPSTICK 0.2 E.U./dL (0.2)
[2022-09-08 12:58] LABS: URINE BILIRUBIN - DIPSTICK SEE COMMNET (NEGATIVE)
[2022-09-08 13:03] LABS: URINE RBC 0-2 RBC/hpf (0-5)
[2022-09-08 13:04] LABS: URINE BACTERIA MODERATE hpf; URINE WBC 50-100 WBC/hpf (0-5)
[2022-09-08 13:05] LABS: URINE HYALINE CAST FEW lpf (NONE-RARE)
--- NOTE | 2022-09-08 16:30 | NUR ---
PT SITTING UP IN CHAIR EATING DINNER. RECEIVED PAIN MEDICATION PER EMAR AND PAIN HAS SUBSIDED AT THIS TIME. PT LINENS CHANGED. CALL LIGHT WITHIN REACH AND SAFETY PRECAUTIONS IN PLACE.
--- NOTE | 2022-09-08 19:30 | NUR ---
PATIENT RESTING IN BED AT THIS TIME-AWAKE AND HAVING SEVERE PAIN TO THE RIGHT SHOULDER/ARM AREA. PATIENT WITH SEVERE ECCYMOTIC AREA TO THE RIGHT SHOULDER, UPPER RIGHT CHEST AND UPPER RIGHT BACK-MODERATE AMT OF BLOOD LEAKING FROM POSTERIOR RIGHT SHOULDER-2 ABD PADS ARE SATURATED. HALF SPLINT TO RIGHT ARM IS TIGHT AND SWELLING TO RIGHT ARM AND HAND NOTED, SPLINT IS SECURED WITH ALISA WRAP. PATIENT WITH GOOD FEELING AND MOVEMENT TO RIGHT FINGERS. MEIDCATED FOR PAIN WITH ROXICODONE 10MG PO FOR PAIN. RIGHT HAND ELEVATED PILLOWS. SAFETY PRECAUTIONS REINFORCED. CALL LIGHT IN REACH. WILL CONT TO MONITOR.
--- NOTE | 2022-09-08 22:00 | NUR ---
PATIENT RESTING IN BED-SPLINT WAS REMOVED FROM RIGHT UPPER ARM DUE TO INCREASED SWELLING AND CUTTING INTO PATIENTS ARM. CONT TO OOZE BLOODY DRAINAGE FROM SHOULDER AND UPPER ARM. PATIENT CONT TO HAVE SEVERE PAIN EVEN AFTER MEDICATED EARLIER. CALL TO DR. LYON AND NEW ORDERS RECEIVED. NEW SPLINT AND ORTHO GLASS SPLINT PLACED OVER TELFA AND KERLIX WRAP. SPLINT SECURED WITH ALISA WRAP. PATIENT WAS THEN MEDICATED WITH MORPHINE 4MG IVP ORDERED. ALSO MEDICATED WITH ATIVAN 0.5MG FOR ANXIETY AND SLEEP. PATIENT CURRENTLY POSITIONED ON LEFT SIDE FOR COMFORT. PATIENT WITH SEVERE ECCYMOTIC AREAS COVERING MOST OF HIS BODY AND EXTREMITIES. STATES THAT HE TAKES "BLOOD THINNERS". DID HAVE FALL EARLIER IN THE WEEK-CAME TO THE ER AND WAS SENT HOME. WENT TO SEE DR. LO AND RETURNED TO THE HOSPITAL YESTERDAY. PATIENT IS ON TELE MONITOR READING PACED 70'S. IV SITE TO LEFT FOREARM INTACT WITH IVF NS PATENT AND INFUSING AT 50CC/HR. ROCEPHIN GIVEN ORDERED FOR UTI. PATIENT USING URINAL TO VOID WITH ASSIST-TRENT URINE. SAFETY PRECAUTIONS REINFORCED. CALL LIGHT IN REACH. WILL CONT TO MONITOR.
[2022-09-09 00:09] VITALS: BP 105/59
--- NOTE | 2022-09-09 03:00 | NUR ---
RECIEVED CALL FROM IN ER THAT TELE WAS OFF. PATIENT RESTING IN BED WITH TELE OFF AND IV SITE OUT. LINENS ARE COVERED IN BLOOD. ASSISTED PATIENTOOB TO RECLINER WITH SPLINT AND SLING TO RIGHT UE. STILL WITH SEVERE PAIN TO RIGHT ARM. LINENS WERE CHANGED. NEW IV STARTED TO LEFT FOREARM-#22 WITH GOOD BLOOD RETURN. IVF NS PATENT AND INFUSING AT 50CC/HR. PATIENT ASSISTED BACK TO THE BED. TELE MONITOR REAPPLIED. MEDICATED FOR PAIN TO RIGHT ARM AND SHOULDER WITH MORPHINE 4MG IVP FOR 8/10 ON PAIN SCALE. SAFETY PRECAUTIONS REINFORCED. CALL LIGHT IN REACH. WILL CONT TO MONITOR.
--- NOTE | 2022-09-09 04:00 | NUR ---
PATIENT ADMITTED FROM ER VIA STRETCHER. PATIENT IS MAX TRANSFER TO THE BED. PATIENT WITH SEVERE DEMENTIA. PATIENT IS DNR. TELE MONITOR IN PLACE-SR-60'S. LEFT EJ INTACT WITH GOOD BLOOD RETURN. IVF NS PATENT AND INFUSING ORDERED. MESSER PATENT AND DRAINING TRENT URINE, NAVIN LE ARE MILDLY RED. LOVENOX WAS GIVEN ION ER. TAKING PO FLUIDS IN SMALLL AMTS. BED ALRM IN PLACE FOR PATIENT SAFETY, WILL CONT TO MONITOR.
--- NOTE | 2022-09-09 04:45 | NUR ---
RESTING IN BED AT THIS TIME. BABATUNDE ELEVATED. RIGHT ARM IN SLING WITH RIGHT HAND ELEVATED ON PILLOW. TELE MONITOR IN PLACE-LAST READING WAS PACED-71. IVF PATENT AND INFUSING VIA LEFT FOREARM AT 50CC/HR. EYES ARE CLOSED AND RESP ARE EVEN AND UNLABORED. CALL LIGHT IN REACH. WILL CONT TO MONITOR.
[2022-09-09 05:09] VITALS: BP 104/52
[2022-09-09 05:17] LABS: HEMOGLOBIN 8.5 g/dl (14.0-18.0); MEAN CELL VOLUME 110.2 fL CALC (80.0-100.0); MEAN CORPUSCULAR HGB 34.7 pG CALC (26.0-32.0); MEAN CORPUSCULAR HGB CONC 31.5 g/dL CAL (32.0-36.0); RED BLOOD COUNT 2.45 mill/uL (4.70-6.10); RED CELL DISTRI WIDTH 15.6 % (11.5-15.5)
--- NOTE | 2022-09-09 05:45 | NUR ---
MEDICATED FOR RIGHT ARE AND SHOULDER PAIN WITH OXYCODONE 10MG PO FOR 8/10 PAIN SCALE. PATIENT CONT TO HAVE BLOODY DRAINAGE OOZING FRON RIGHT PO ST BACK. ABD PAD WAS CHANGED. SPLINT AND SLING IN PLACE. RIGHT HAND REMAINS SWOLLEN-ELEVATED ON PILLOW. IVF PATENT AND INFUSING LEFT FOREAM. CALL LIGHT IN REACH. WILL CONT TO MONITOR.
[2022-09-09 06:12] LABS: ALBUMIN 3.3 g/dL (3.2-5.0); BILIRUBIN, TOTAL 1.1 mg/dL (0.2-1.3); CREATININE 1.6 mg/dL (0.7-1.3); MAGNESIUM 1.6 mg/dL (1.6-2.3); POTASSIUM 3.6 mmol/l (3.5-5.1); TOTAL PROTEIN 6.2 g/dL (6.3-8.2)
[2022-09-09 06:39] VITALS: BP 99/53
--- NOTE | 2022-09-09 07:00 | NUR ---
RECEIVED REPORT FROM PM RN. ALL SAFETY MEASURES IN PLACE, VSS. PT IS RESTING IN BED, NO NEEDS AT THIS TIME. PT CONTINUING TO BLEED FROM R SHOULDER. DRESSING REINFORCED.
--- NOTE | 2022-09-09 09:35 | NUR ---
CONTACTED DR TIRADO IN REFERENCE TO A STAT PHYSICIAN CONSULT. I SPOKE WITH DR TIRADO AT 0909 HRS.
--- NOTE | 2022-09-09 10:38 | NUR ---
PT SENT FOR STAT R SHOULDER CT. DECISION MADE TO TRANSFER PT TO [facility]. AWAITING ACCEPTING FACILITY.
[2022-09-09 10:40] VITALS: BP 104/48
--- NOTE | 2022-09-09 12:17 | NUR ---
CALLED REPORT TO [facility] JAREK NASCIMENTO. TRANSPORT WILL BE HERE AT 12:45 PM FOR PT.
--- NOTE | 2022-09-09 12:42 | NUR ---
PT PICKED [facility]. REPORT GIVEN. PT QUESTIONS ANSWERED. TELEMETRY REMOVED.
== END 2022-09-09 12:49 | disposition short-term general hospital (02) | DRG 563 ==
LOC: MS2 17:13
PROVIDERS: ADMIT Internal Medicine; ATTEND Internal Medicine
DX: S42.291A Other displaced fracture of upper end of right humerus, initial encounter for closed fracture (principal); N17.9 Acute kidney failure, unspecified; I50.22 Chronic systolic (congestive) heart failure; D62 Acute posthemorrhagic anemia; S40.011A Contusion of right shoulder, initial encounter; I95.9 Hypotension, unspecified; I25.5 Ischemic cardiomyopathy; I25.10 Atherosclerotic heart disease of native coronary artery without angina pectoris; I48.0 Paroxysmal atrial fibrillation; N18.30 Chronic kidney disease, stage 3 unspecified; E86.0 Dehydration; D63.1 Anemia in chronic kidney disease; J44.9 Chronic obstructive pulmonary disease, unspecified; I73.9 Peripheral vascular disease, unspecified; F41.9 Anxiety disorder, unspecified; E78.5 Hyperlipidemia, unspecified; K70.30 Alcoholic cirrhosis of liver without ascites; W19.XXXA Unspecified fall, initial encounter; Y92.89 Other specified places as the place of occurrence of the external cause; Z86.718 Personal history of other venous thrombosis and embolism; Z95.1 Presence of aortocoronary bypass graft; Z60.2 Problems related to living alone; Z91.81 History of falling; Z95.810 Presence of automatic (implantable) cardiac defibrillator; Z86.711 Personal history of pulmonary embolism; Z79.01 Long term (current) use of anticoagulants; Z86.16 Personal history of COVID-19; Z87.19 Personal history of other diseases of the digestive system

== ENCOUNTER 2022-09-13 09:49 | Emergency (ER) | payer MEDICARE ==
[~2022-09-13] VITALS: Ht 175.3 cm; Wt 69.8 kg
[2022-09-13 10:00] VITALS: BP 91/61
== END 2022-09-13 10:34 | disposition home or self-care (01) ==
LOC: ED 09:49
DX: R53.1 Weakness (principal); S42.301D Unspecified fracture of shaft of humerus, right arm, subsequent encounter for fracture with routine healing; X58.XXXD Exposure to other specified factors, subsequent encounter

== ENCOUNTER 2022-09-16 14:10 | Emergency (ER) | payer MEDICARE ==
[~2022-09-16] VITALS: Ht 175.3 cm; Wt 74.8 kg
[2022-09-16 14:36] VITALS: BP 96/61
[2022-09-16] MEDS ORDERED: HYDROCO/APAP1 TA9 PO ×2 (14:49→15:23)
[2022-09-16 15:03] VITALS: BP 96/61
== END 2022-09-16 15:35 | disposition home or self-care (01) ==
LOC: ED 14:10
DX: S42.291D Other displaced fracture of upper end of right humerus, subsequent encounter for fracture with routine healing (principal); S40.011D Contusion of right shoulder, subsequent encounter; I73.9 Peripheral vascular disease, unspecified; X58.XXXD Exposure to other specified factors, subsequent encounter